=== PATIENT | female | born 1975 | race Caucasian/White ===

== ENCOUNTER 2021-12-27 18:37 | Emergency (ER) | payer MEDICAID ==
--- NOTE | 2021-12-27 20:17 | ED Physician Documentation ---
History of Present Illness - Stated complaint Stated Complaint: MED REFILL - Chief complaint Chief Complaint: General - History obtained from History obtained from: Patient, Family - History of Present Illness Timing: Today Pain level max: 0 Pain level now: 0 - Additonal information Additional information: 67-year-old female requesting refills of her medications. She is here with her . They recently moved here from [place], they state that their medications are stuck in a transport container in [place] and they are unable to obtain any refills. They are also having insurance issues. Requesting refill of her medications. 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 HEENT: Tonsil/Adenoidectomy - Present Medications Home Medications: Ambulatory Orders Medication Instructions Recorded Confirmed Adalimumab [Humira Pen] 40 mg SQ ONCE #1 kit 12/27/21 Buprenorphine HCl/Naloxone HCl 2 each SL DAILY 12/27/21 12/27/21 [Suboxone 8 mg-2 mg Sl Film] Carvedilol [Coreg] 25 mg PO BID #60 tab 12/27/21 Folic Acid 1 mg PO DAILY #30 tab 12/27/21 Gabapentin [Neurontin] 300 mg PO QPM #30 cap 12/27/21 Methylphenidate HCl 20 mg PO DAILY #30 tab 12/27/21 PARoxetine HCl [Paxil] 30 mg PO DAILY #30 tab 12/27/21 Potassium Chloride [Klor-Con 10] 10 meq PO DAILY #30 tab 12/27/21 buPROPion HCL [Bupropion HCl] 75 mg PO TID #90 tab 12/27/21 clonazePAM [Klonopin] 1 mg PO DAILY PRN #14 tab 12/27/21 predniSONE [Deltasone] 1 tablet PO BID #60 tab 12/27/21 - Allergies Allergies/Adverse Reactions: Allergies Allergy/AdvReac Type Severity Reaction Status Date / Time No Known Drug Allergies Allergy Verified 12/27/21 18:53 - Social History Does the pt smoke?: No Smoking Status: Never smoker Does the pt drink ETOH?: Yes - Immunizations Immunizations are current?: Yes PD ED PE NORMAL - Vitals Vital signs reviewed: Yes - General General: Alert and oriented X 3, No acute distress - HEENT HEENT: Moist mucous membranes - Neck Neck: Supple, no meningeal sign - Cardiac Cardiac: RRR - Respiratory Respiratory: No respiratory distress, Clear bilaterally - Abdomen Abdomen: Soft, Non tender, Non distended - Derm Derm: Warm and dry - Neuro Neuro: Alert and oriented X 3 - Psych Psych: Normal mood, Normal affect Results - Vitals Vitals: Vital Signs - 24 hr 12/27/21 12/27/21 19:00 20:53 Temperature 37.2 C 37.1 C Heart Rate 98 89 Respiratory 18 18 Rate Blood Pressure 133/97 H 135/88 H O2 Saturation 97 98 Oxygen O2 Source Room air PD MEDICAL DECISION MAKING - ED course Complexity details: considered differential, d/w patient ED course: 46-year-old female requesting medication refills. She did bring all of her bottles with her. Medications were verified. Will prescribe a 1 time 30-day refill of her medications. Informed her that we are unable to refill her Suboxone. She will be referred to a Suboxone clinic for this. The patient was informed that we will not be able to refill these medications again. She will follow up with a local primary care provider. She was given information about the primary care provider covering ED follow-ups this week. Patient counseled regarding signs and symptoms for which I believe and urgent re-evaluation would be necessary. Patient with good understanding of and agreement to plan and is comfortable going home at this time This document was made in part using voice recognition software. While efforts are made to proofread this document, sound alike and grammatical errors may occur. Departure - Departure Disposition: 01 Home, Self Care Clinical Impression: Encounter for medical screening examination Condition: Good Instructions: ED Screening Exam Medical Nonurgent Follow-Up: Terrie Gipson PA-C [Physician No Access] - [facility] [Provider Group] Prescriptions: buPROPion HCL [Bupropion HCl] 75 mg PO TID #90 tab Carvedilol [Coreg] 25 mg PO BID #60 tab predniSONE [Deltasone] 1 tablet PO BID #60 tab Folic Acid 1 mg PO DAILY #30 tab Adalimumab [Humira Pen] 40 mg SQ ONCE #1 kit clonazePAM [Klonopin] 1 mg PO DAILY PRN #14 tab PRN Reason: Anxiety Potassium Chloride [Klor-Con 10] 10 meq PO DAILY #30 tab Methylphenidate HCl 20 mg PO DAILY #30 tab Gabapentin [Neurontin] 300 mg PO QPM #30 cap PARoxetine HCl [Paxil] 30 mg PO DAILY #30 tab Comments: As discussed, we are unable to refill your Suboxone. This will need to come from a different provider. [facility] is a local resource. Their number is below. I would contact them tomorrow to see when they can have you follow-up. You can also try to follow-up with [facility], they are next to [facility] in [place]. Your prescriptions were sent to [facility] in [place]. [facility] Address: [id number] [place] [address] [address], [place] [address] Phone: Discharge Date/Time: 12/27/21 20:53
[2021-12-27 20:54] VITALS: BP 135/88
== END 2021-12-27 20:53 | disposition home or self-care (01) ==
LOC: ED 18:37
DX: Z76.0 Encounter for issue of repeat prescription (principal)
CPT/HCPCS: 99283; 99285

== ENCOUNTER 2022-03-06 13:38 | Emergency (ER) | payer MEDICAID ==
[2022-03-06] MEDS ORDERED: THIAMINE INJ 100 MG, MAGNESIUM SULFATE 2 GM, MULTIVITAMIN 10 ML, FOLIC ACID INJ 1 MG in... IV ONE ×5 (14:37)
[2022-03-06] MEDS ORDERED: LORazepam 2 MG/ML VIAL IVP STA (14:37)
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
[2022-03-06 14:53] LABS: BASOPHILS % (AUTO) 0.5 %; EOSINOPHILS # (AUTO) 0.1 10^3/uL (0.0-0.7); EOSINOPHILS % (AUTO) 1.6 %; HCT - HEMATOCRIT 42.6 % (37.0-47.0); HGB - HEMOGLOBIN 14.2 g/dL (12.0-16.0); LYMPHOCYTES # (AUTO) 1.6 10^3/uL (1.5-3.5); LYMPHOCYTES % (AUTO) 28.4 %; MEAN CORPUSCULAR HEMOGLOBIN 31.3 pg (27.0-31.0); MEAN CORPUSCULAR HGB CONC 33.3 g/dL (32.0-36.0); MEAN PLATELET VOLUME 10.5 fL (7.9-10.8); MONOCYTES # (AUTO) 0.4 10^3/uL (0.0-1.0); MONOCYTES % (AUTO) 7.3 %; NEUTROPHILS # (AUTO) 3.5 10^3/uL (1.5-6.6); PLT - PLATELET COUNT 312 10^3/uL (130-450); RED BLOOD COUNT 4.53 10^6/uL (4.20-5.40); RED CELL DISTRIBUTION WIDTH 11.8 % (12.0-15.0); WHITE BLOOD COUNT 5.6 x10^3/uL (4.8-10.8)
[2022-03-06 15:04] LABS: ALBUMIN 4.9 g/dL (3.2-5.5); ALBUMIN/GLOBULIN RATIO 1.3 (1.0-2.2); BILIRUBIN,TOTAL 0.8 mg/dL (0.2-1.0); CALCIUM 10.4 mg/dL (8.5-10.3); CREATININE 0.7 mg/dL (0.4-1.0); ETOH - ETHANOL 27.5 mg/dL; POTASSIUM 3.4 mmol/L (3.5-5.0); TOTAL PROTEIN 8.8 g/dL (6.7-8.2)
[2022-03-06] MEDS ORDERED: THIAMINE 100 MG TABLET PO STA (16:20)
[2022-03-06 16:29] LABS: MUDS CUTOFF CONCENTRATIONS CUTOFF CONC BELOW:
[2022-03-06 16:36] LABS: BILIRUBIN,URINE NEGATIVE (NEGATIVE); GLUCOSE, URINE (UA) NEGATIVE (NEGATIVE); KETONES,URINE (UA) NEGATIVE (NEGATIVE); LEUKOCYTE ESTERASE, URINE NEGATIVE (NEGATIVE); NITRITE,URINE NEGATIVE (NEGATIVE); OCCULT BLOOD,URINE TRACE-INTA (NEGATIVE); PROTEIN,URINE 100 mg/dL (NEGATIVE); UROBILINOGEN,URINE 0.2 (NORMAL) E.U./dL (NORMAL)
[2022-03-06 16:40] LABS: CLARITY,URINE CLEAR (CLEAR)
[2022-03-06 16:49] LABS: AMPHETAMINE SCREEN,URINE NEGATIVE (NEGATIVE); BARBITURATE SCREEN,UR NEGATIVE (NEGATIVE); BENZODIAZEPINES SCREEN, URINE NEGATIVE (NEGATIVE); COCAINE SCREEN URINE NEGATIVE (NEGATIVE); METHADONE SCREEN, URINE NEGATIVE (NEGATIVE); METHAMPHETAMINES SCREEN, URINE NEGATIVE (NEGATIVE); OPIATE SCREEN, URINE NEGATIVE (NEGATIVE); OXYCODONE SCREEN, URINE NEGATIVE (NEGATIVE); PROPOXYPHENE SCREEN, URINE NEGATIVE (NEGATIVE); THC CANNABINOID SCREEN, URINE NEGATIVE (NEGATIVE); TRICYCLIC ANTIDEPRESSANT,URINE NEGATIVE (NEGATIVE)
[2022-03-06 16:51] VITALS: BP 233/167
[2022-03-06 17:13] LABS: BACTERIA,URINE Few /HPF (None Seen); RBC,URINE 0-5 /HPF (0-5); SQUAMOUS EPITHELIAL CELL,UR RARE Squamous (<= Few); WBC,URINE 0-3 /HPF (0-5)
== END 2022-03-06 16:49 | disposition home or self-care (01) ==
LOC: ED 13:38
DX: F10.239 Alcohol dependence with withdrawal, unspecified (principal)
CPT/HCPCS: 36415; 80053; 80306; 80320; 81001; 83690; 84443; 85025; 93005; 96374; 99283; 99284; A9270; J2060; J3411; 81003; 87086

== ENCOUNTER 2022-06-28 20:05 | Outpatient (CLI) | payer MEDICAID | END 2022-06-28 20:06 | disposition left against medical advice (07) | LOC: EMS 20:05 | DX: R53.83 Other fatigue (principal) ==

== ENCOUNTER 2022-07-16 20:47 | Outpatient (CLI) | payer MEDICAID | END 2022-07-16 20:48 | disposition critical access hospital (66) | LOC: EMS 20:47 | DX: R41.82 Altered mental status, unspecified (principal); S50.312A Abrasion of left elbow, initial encounter; R26.81 Unsteadiness on feet; R45.1 Restlessness and agitation; W18.30XA Fall on same level, unspecified, initial encounter; Y93.01 Activity, walking, marching and hiking; Y92.414 Local residential or business street as the place of occurrence of the external cause | CPT/HCPCS: A0425; A0429; A0999 ==

== ENCOUNTER 2022-07-16 20:57 | Inpatient (IN) | payer MEDICAID ==
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
[2022-07-16] MEDS ORDERED: LORazepam 2 MG/ML VIAL IVP STA ×3 (21:09→22:59)
[2022-07-16 21:25] LABS: BASOPHILS % (AUTO) 0.6 %; EOSINOPHILS # (AUTO) 0.1 10^3/uL (0.0-0.7); EOSINOPHILS % (AUTO) 1.2 %; HGB - HEMOGLOBIN 12.4 g/dL (12.0-16.0); LYMPHOCYTES # (AUTO) 1.9 10^3/uL (1.5-3.5); LYMPHOCYTES % (AUTO) 28.7 %; MEAN CORPUSCULAR HEMOGLOBIN 28.2 pg (27.0-31.0); MEAN CORPUSCULAR HGB CONC 31.8 g/dL (32.0-36.0); MEAN CORPUSCULAR VOLUME 88.6 fL (81.0-99.0); MEAN PLATELET VOLUME 10.8 fL (7.9-10.8); MONOCYTES # (AUTO) 0.5 10^3/uL (0.0-1.0); MONOCYTES % (AUTO) 7.2 %; NEUTROPHILS # (AUTO) 4.1 10^3/uL (1.5-6.6); PLT - PLATELET COUNT 336 10^3/uL (130-450); RED CELL DISTRIBUTION WIDTH 12.9 % (12.0-15.0); WHITE BLOOD COUNT 6.5 x10^3/uL (4.8-10.8)
[2022-07-16 21:29] LABS: MUDS CUTOFF CONCENTRATIONS CUTOFF CONC BELOW:
[2022-07-16] MEDS ORDERED: OLANZapine 10 MG VIAL IM STA (21:30)
[2022-07-16 21:33] LABS: BILIRUBIN,URINE NEGATIVE (NEGATIVE); GLUCOSE, URINE (UA) NEGATIVE (NEGATIVE); KETONES,URINE (UA) NEGATIVE (NEGATIVE); LEUKOCYTE ESTERASE, URINE NEGATIVE (NEGATIVE); NITRITE,URINE NEGATIVE (NEGATIVE); OCCULT BLOOD,URINE NEGATIVE (NEGATIVE); PH,URINE 6.5 PH (5.0-7.5); PROTEIN,URINE NEGATIVE (NEGATIVE); UROBILINOGEN,URINE 0.2 (NORMAL) E.U./dL (NORMAL)
[2022-07-16 21:34] LABS: CLARITY,URINE CLEAR (CLEAR); HCG UR QUAL NEGATIVE
[2022-07-16 21:43] LABS: ACETAMINOPHEN < 10 ug/mL (10-30); ALBUMIN 4.3 g/dL (3.2-5.5); ALBUMIN/GLOBULIN RATIO 1.3 (1.0-2.2); ALKALINE PHOSPHATASE 54 IU/L (42-121); ALT ALANINE AMINOTRANSFERASE 12 IU/L (10-60); AST ASPARTATE AMINOTRANSFERASE 20 IU/L (10-42); BILIRUBIN,TOTAL 0.4 mg/dL (0.2-1.0); BUN - BLOOD UREA NITROGEN 10 mg/dL (6-20); CALCIUM 10.6 mg/dL (8.5-10.3); CARBON DIOXIDE - CO2 27 mmol/L (21-32); CHLORIDE 102 mmol/L (101-111); CREATININE 0.9 mg/dL (0.4-1.0); ETOH - ETHANOL < 5.0 mg/dL; GFR - MDRD 67 (>89); GLUCOSE 79 mg/dL (70-100); LIPASE 32 U/L (22-51); POTASSIUM 3.5 mmol/L (3.5-5.0); SALICYLATE < 6.0 mg/dL; SODIUM 143 mmol/L (135-145); TOTAL PROTEIN 7.6 g/dL (6.7-8.2)
[2022-07-16 21:43] LABS: AMPHETAMINE SCREEN,URINE POSITIVE (NEGATIVE); BARBITURATE SCREEN,UR NEGATIVE (NEGATIVE); BENZODIAZEPINES SCREEN, URINE NEGATIVE (NEGATIVE); COCAINE SCREEN URINE NEGATIVE (NEGATIVE); METHADONE SCREEN, URINE NEGATIVE (NEGATIVE); METHAMPHETAMINES SCREEN, URINE POSITIVE (NEGATIVE); OPIATE SCREEN, URINE POSITIVE (NEGATIVE); OXYCODONE SCREEN, URINE NEGATIVE (NEGATIVE); PROPOXYPHENE SCREEN, URINE NEGATIVE (NEGATIVE); THC CANNABINOID SCREEN, URINE NEGATIVE (NEGATIVE); TRICYCLIC ANTIDEPRESSANT,URINE NEGATIVE (NEGATIVE)
[2022-07-16] MEDS ORDERED: SODIUM CHLORIDE 0.9% 1,000 ML IV STA (22:20)
[2022-07-16] MEDS ORDERED: THIAMINE INJ 100 MG, MAGNESIUM SULFATE 2 GM, MULTIVITAMIN 10 ML, FOLIC ACID INJ 1 MG in... IV ONE ×10 (23:20)
--- NOTE | 2022-07-16 23:32 | CT Report ---
PROCEDURE: HEAD WO INDICATIONS: reported fall, AMS TECHNIQUE: Noncontrast 4.5 mm thick angled axial sections acquired from the foramen magnum to the vertex. For r adiation dose reduction, the following was used: automated exposure control, adjustment of mA and/or kV according to patient size. COMPARISON: None. FINDINGS: Image quality: Evaluation limited by motion artifact. Metallic streak artifact is also present from patient's dental hardware CSF spaces: Basal cisterns are patent. No extra-axial fluid collections. Ventricles are normal in size and shape. Brain: No intracranial hemorrhage, mass, or mass effect. [place]-white matter interface appears grossl y preserved with evaluation limited by motion artifact. Skull and face: Calvarium and visualized facial bones are intact, without suspicious lesions. Sinuses: Visualized sinuses and mastoids are clear. IMPRESSION: 1. Limited study demonstrates no definite acute intracranial abnormality. Reviewed by: Enrique Herrmann MD on 07/16/2022 11:31 PM PDT Approved by: Enrique Herrmann MD on 07/16/2022 11:31 PM PDT Station ID: [id number]
[2022-07-16] MEDS ORDERED: THIAMINE 100 MG/1 ML 2 ML MDV ONE (23:36)
[2022-07-16] MEDS ORDERED: MAGNESIUM SULFATE 1 GM/2 ML VIAL ONE (23:36)
[2022-07-16] MEDS ORDERED: FOLIC ACID 5 MG/1 ML 10ML MDV ONE (23:36)
[2022-07-16] MEDS ORDERED: MULTIVITAMIN IV 10 ML VIAL ONE (23:36)
--- NOTE | 2022-07-16 23:43 | CT Report ---
PROCEDURE: CERVICAL SPINE WO INDICATIONS: reported fall, AMS TECHNIQUE: Noncontrast 3 mm thick sections acquired from the skull base to the T4 level. Sagittal and coronal r eformats were then constructed. For radiation dose reduction, the following was used: automated exp osure control, adjustment of mA and/or kV according to patient size. COMPARISON: None. FINDINGS: Image quality: There is motion artifact limiting evaluation. Bones: No definite fractures or subluxation. There is mild anterolisthesis at C2-C3. Mild straighten ing of the cervical lordosis present. Multilevel degenerative disc disease and facet joint arthropath y are present. Visualized superior ribs are intact. Soft tissues: Prevertebral soft tissues are normal in thickness. No paravertebral hematomas. No ap ical pneumothoraces. IMPRESSION: 1. Limited study demonstrates no definite fracture or subluxation. Reviewed by: Enrique Denis MD on 07/16/2022 11:42 PM PDT Approved by: Enrique Denis MD on 07/16/2022 11:42 PM PDT Station ID: [id number]
[2022-07-17 02:29] LABS: B. PARAPERTUSSIS- RESP PCR PAN NOT DETECTED; B. PERTUSSIS- RESP PCR PANEL NOT DETECTED; C. PNEUMONIAE- RESP PCR PANEL NOT DETECTED; CORONAVIRUS 229E-RESP PCR NOT DETECTED; CORONAVIRUS HKU1-RESP PCR NOT DETECTED; CORONAVIRUS NL63-RESP PCR NOT DETECTED; CORONAVIRUS OC43-RESP PCR NOT DETECTED; HUMAN METAPNEUMOVIRUS NOT DETECTED; INFLUENZA A- RESP PCR PANEL NOT DETECTED; INFLUENZA B - RESP PCR PANEL NOT DETECTED; M. PNEUMONIAE- RESP PCR PANEL NOT DETECTED; PARAINFLUENZA VIRUS 1 NOT DETECTED; PARAINFLUENZA VIRUS 2 NOT DETECTED; PARAINFLUENZA VIRUS 3 NOT DETECTED; PARAINFLUENZA VIRUS 4 NOT DETECTED; RHINOVIRUS/ENTEROVIRUS NOT DETECTED; RSV- RESP PCR PANEL NOT DETECTED; SARS-CoV-2 -RESP PCR PANEL NOT DETECTED
[2022-07-17] MEDS ORDERED: ONDANSETRON 4 MG/2 ML VIAL IVP PRN (02:33)
--- NOTE | 2022-07-17 02:48 | HISTORY & PHYSICAL EXAMINATION ---
Chief Complaint - Chief Complaint Chief Complaint: altered mental status History of Present Illness - Admitted From Admitted From:: ER - History Obtained From Records Reviewed: ER physician - History of Present Illness HPI Comment/Other: This is 46-year-old female who was brought to the emergency room by EMS with altered mental status. Patient was found confused and had a fall. She was sitting in the car for a long time and bystander reported patient's abnormal behavior and fall and therefore EMS was called. Patient is not able to provide any history. She has tremors. She received IV Ativan as well as Zyprexa in the emergency room. Patient also received banana bag. Her labs are unremarkable. Urine analysis did not show any signs of UTI. Urine drug screen was positive for opioids and amphetamines. CT head and cervical spine did not show any acute abnormalities as well. Most of the history was obtained from the emergency room physician and patient is not able to provide any history. 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 HEENT: reports: Tonsil/Adenoidectomy - Family & Social History Family History Comment/Other: Not able to obtain due to altered mental status Social History Notes: Not able to obtain due to altered mental status - Substance History Dependence Issues: Other - POLST Patient has POLST: No Meds/Allgy - Home Medications Home Medications: Ambulatory Orders Medication Instructions Recorded Confirmed Adalimumab [Humira Pen] 40 mg SQ ONCE #1 kit 12/27/21 07/16/22 Folic Acid 1 mg PO DAILY #30 tab 12/27/21 07/16/22 buPROPion HCL [Bupropion HCl] 75 mg PO TID #90 tab 12/27/21 07/16/22 Lisinopril [Zestril] 20 mg PO DAILY 07/16/22 07/16/22 amLODIPine [Norvasc] 5 mg PO DAILY 07/16/22 07/16/22 buprenorphine HCL [Buprenorphine 07/16/22 HCl] - Allergies Allergies/Adverse Reactions: Allergies Allergy/AdvReac Type Severity Reaction Status Date / Time No Known Drug Allergies Allergy Verified 07/16/22 21:34 Review of Systems - Other Findings Other Findings: Not able to obtain due to altered mental status Prior Level of Functionality: unknown Exam - Vital Signs Reviewed Vital Signs: Yes Vital Signs: Vital Signs x48h Temp Pulse Resp BP Pulse Ox O2 Flow Rate 07/17/22 02:16 98 17 170/110 H 96 07/17/22 02:02 98 17 170/110 H 98 07/17/22 01:30 98 25 H 156/111 H 98 2 07/17/22 01:00 98 23 196/117 H 96 2 07/17/22 00:30 101 H 17 188/166 H 96 2 07/17/22 00:26 101 H 17 184/129 H 96 07/16/22 23:19 105 H 20 148/111 H 99 2 07/16/22 22:30 99 29 H 186/134 H 100 07/16/22 22:19 89 20 141/70 H 87 L 07/16/22 22:00 109 H 22 147/112 H 94 07/16/22 21:26 106 H 15 126/80 96 07/16/22 20:58 36.3 C L 105 H 20 159/95 H 97 - Physical Exam General Appearance: positive: Mild distress Eyes Bilateral: positive: PERRL ENT: positive: ENT inspection nml Neck: positive: Nml inspection Respiratory: positive: Breath sounds nml Cardiovascular: positive: Tachycardia Peripheral Pulses: positive: 1+ Abdomen: positive: Non-tender, No distention Back: positive: Nml inspection Skin: positive: Color nml Extremities: positive: Non-tender, No pedal edema Neurologic/Psychiatric: positive: Disoriented to person, Disoriented to place, Disoriented to time, Other (Shakiness and tremors present. She follows commands up to some extent. Moving all 4 limbs. Not able to communicate.) Reflexes: Knee (R): 1+, Knee (L): 1+ Conclusion/Plan - Lab Results Fish Bones: 07/16/22 21:19 07/16/22 21:19 - Diagnostic Imaging Results Diagnostic Imaging Results: positive: Prelim report reviewed - EKG Results EKG Interpreted Independently: No Core Measures - Anticipated LOS I expect patient to be DC'd or transferred within 96 hours.: Yes - Issues Hospital Issues and Management Plan: 1. Acute encephalopathy 2. Suspected substance use. Urine drug screen is positive for opioid and amphetamine 3. Accelerated hypertension Admit patient on telemetry Neurochecks Patient may be withdrawing from alcohol or other substance possibility. CIWA protocol Clonidine patch Fall aspiration precautions EKG chest x-ray CPK troponin ammonia level As needed IV hydralazine Seizure precautions - DVT/VTE - Prophylaxis VTE/DVT Device ordered at admit?: Yes VTE/DVT Prophylaxis med ordered at admit?: No - Stroke - Rehab Assessment Rehab services assessment to be ordered?: No - AMI - Statin at Admit Aspirin Prescribed on Admit: No Telemedicine Consult Details - Provider Location & Consult Time Telemedicine consultation conducted via videoconferencing?: Yes List names and roles of persons who participated in consult:: ED physician and hospitalist Telemedicine provider location:: [facility] [id number] Time Telemedicine consult began:: 02:00 Time Telemedicine consult completed:: 03:24
[2022-07-17] MEDS ORDERED: cloNIDine 0.2 MG PATCH TOP SCH (03:00)
[2022-07-17 03:01] LABS: CREATINE KINASE MB 2.7 ng/mL (0.6-6.3)
[2022-07-17 03:03] LABS: TROPONIN I HIGH SENSITIVITY 8.1 ng/L (2.3-14.8)
[2022-07-17 05:57] LABS: ABG BASE EXCESS 3.4 mmol/L (-2.0-3.0); ABG HCO3 30.8 mmol/L (22.0-26.0); ABG PH 7.33 (7.35-7.45); ABG PO2 56 mmHg (80-100); ABG TCO2 32.6 MMOL/L (21.0-29.0)
[2022-07-17 05:58] LABS: ALLEN TEST POSITIVE
[2022-07-17 05:59] LABS: ABG OXYGEN SATURATION 87 % (94-98); ABG PCO2 60 mmHg (34-45)
[2022-07-17 06:07] LABS: BASOPHILS % (AUTO) 0.3 %; HGB - HEMOGLOBIN 11.9 g/dL (12.0-16.0); LYMPHOCYTES # (AUTO) 1.4 10^3/uL (1.5-3.5); LYMPHOCYTES % (AUTO) 18.4 %; MEAN CORPUSCULAR HEMOGLOBIN 28.5 pg (27.0-31.0); MEAN CORPUSCULAR HGB CONC 30.5 g/dL (32.0-36.0); MEAN CORPUSCULAR VOLUME 93.5 fL (81.0-99.0); MEAN PLATELET VOLUME 10.4 fL (7.9-10.8); MONOCYTES # (AUTO) 0.7 10^3/uL (0.0-1.0); MONOCYTES % (AUTO) 9.9 %; NEUTROPHILS # (AUTO) 5.4 10^3/uL (1.5-6.6); NEUTROPHILS % (AUTO) 71.1 %; PLT - PLATELET COUNT 294 10^3/uL (130-450); RED BLOOD COUNT 4.17 10^6/uL (4.20-5.40); RED CELL DISTRIBUTION WIDTH 13.1 % (12.0-15.0); WHITE BLOOD COUNT 7.5 x10^3/uL (4.8-10.8)
[2022-07-17] MEDS ORDERED: NALOXONE 0.4 MG/ML VIAL ONE ×2 (06:14→07:36)
[2022-07-17] MEDS ORDERED: NALOXONE 0.4 MG/ML VIAL IVP ONE ×2 (06:16→07:24)
[2022-07-17 06:17] LABS: INR 0.9 (0.8-1.2); PT - PROTHROMBIN TIME 10.4 secs (9.9-12.6)
[2022-07-17 06:22] LABS: ALBUMIN 4.3 g/dL (3.2-5.5); ALBUMIN/GLOBULIN RATIO 1.3 (1.0-2.2); BILIRUBIN,TOTAL 0.7 mg/dL (0.2-1.0); CALCIUM 9.8 mg/dL (8.5-10.3); MAGNESIUM 2.5 mg/dL (1.7-2.8); POTASSIUM 3.1 mmol/L (3.5-5.0); TOTAL PROTEIN 7.6 g/dL (6.7-8.2)
--- NOTE | 2022-07-17 07:10 | XRAY Report ---
PROCEDURE: Chest 1 View X-Ray INDICATIONS: baseline TECHNIQUE: One view of the chest was acquired. COMPARISON: None. FINDINGS: Surgical changes and devices: None. Lungs and pleura: No pleural effusions or pneumothorax. Lungs are clear. Mediastinum: Mediastinal contours appear normal. Heart size is normal. Bones and chest wall: No suspicious bony lesions. Overlying soft tissues appear unremarkable. IMPRESSION: Chest without acute cardiopulmonary abnormalities or focal airspace disease. No significant discrepancy with initial interpretation by overnight radiologist. Reviewed by: Antonio Gaona MD on 07/17/2022 7:08 AM PDT Approved by: Antonio Gaona MD on 07/17/2022 7:08 AM PDT Station ID: [id number]
[2022-07-17] MEDS ORDERED: SODIUM CHLORIDE 0.9% 1,000 ML IV ONE (07:32)
[2022-07-17] MEDS: SODIUM CHLORIDE 0.45% 1,000 ML IV SCH ×2 (07:40→12:55)
[2022-07-17] MEDS ORDERED: SODIUM CHLORIDE 0.9% 500 ML IV ONE (07:49)
--- NOTE | 2022-07-17 08:06 | PROVIDER PROGRESS NOTE ---
Hospitalist Cross-cover Note - Cross-Cover Note Cross-Cover Note: At 0715 the RN called me in to evaluate the patient that was hypopneic and hypotensive. Patient in bed with HOB elevated, lethargic, opens her eyes to sternal rub then falls back asleep. Blood pressure 92/38, heart rate 80 in sinus rhythm Chart was reviewed. She fell after getting out of her car and witness called EMS. She just had an ABG done an hour ago showing respiratory acidosis pH 7.33, pCO2 60, Na is 146, other chemistries unremarkable including LFTs and ammonia level. Tox screen pos for Narcotics and Meth. Head and neck CT were neg. Dr. Mason Tavarez, ED provider, presented the case to me in person at 0715. The ED had not contacted Poison Control. Dr Molina's impression was that she has altered mental status probably from drugs, is a drug abuser, is a [employer]ism, but she has several different forms of identification with 2 different names, including 2 COVID vaccination cards with different names but the same vaccination types and same dates. 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 In the ER she was somnolent, hypertensive and required clonidine, she was also somewhat agitated and got Ativan and Zyprexa. At the time of admission her vital signs were stable, so she felt to be a candidate to admit to [facility] by admitting provider. Imp: Hypotension, suspect dehydration Respiratory acidosis from hypopnea Altered mental status, suspect narcotic overdose Hypernatremia, probably from dehydration Methamphetamine abuse History of hypertension and she was on clonidine in our ER temporarily Plan: Transfer pt to ICU Narcan drip IV saline bolus IV fluids with half NS We will also contact poison control for further recommendations Social work consult will be requested regarding substance abuse. At 0915, I checked on pt in ICU. She is on a Narcan drip and on iv fluids, BP 130/80, HR 90, RR 20. She opens her eyes to name or to touch and goes right back to sleep. Will order K riders for her K of 3.1 on a.m. labs. Ordering another ABG to be done in several hours. At 1130, her nares screen for MRSA came back positive. Isolation was started. Will order alcohol nasal wipes. At 1200 I contacted Poison Control of [facility] and spoke to KEITH Delcid. I reviewed the case and how the patient presented. I reviewed the medications list that was found in the patient's belongings which include: Albuterol, amlodipine, metoprolol, lisinopril, folic acid, prednisone, methotrexate, Humira and also Haloperidol 5 mg, Risperidone 1 mg, Sertraline 100 mg, and Buprenorphine 8-2 mg. Poison Control's impression is that she probably had a buprenorphine overdose which can cause respiratory depression and hypotension. The RN agreed that Narcan is appropriate and once she is off the Narcan drip to watch her for 4 to 6 hours in case symptoms return. The risperidone can give EKG changes. The sertraline has a risk of seizures within the 8 hours of last ingestion. She has passed 8 hours now. Her EKG was discussed, it shows a QTc of 516 ms. A repeat EKG was recommended to follow her QT interval to assure it is less prolonged. Recommendations are to keep magnesium over 2 and potassium over 4. These recommendations will be ordered. At 1300, I checked on the pt and she had had her CVP line inserted by Anesthesia and awaiting the CXR for placement result. At 1430 her EKG was done, which I interpreted. It showed : NSR, rate 87, early R/S transition, borderline prolonged QT interval with QTc 490 msec. At 1530 I re-examined pt in ICU. BP 170/100, HR 80, RR 20. She was on a Narcan drip, still only awoke with sternal rub, but now could say her name, then falls back asleep. At 1600 I called Poison Control and reviewed her status again with Farhana PARKER. Farhana said that the pt will likely need Narcan drip overnight, for probably a 12-24 hour infusion. I then called Pharmacy to tell them to pre-mix bags for overnight. Will order parenteral meds for treating HTN, using iv Hydralazine and resume Clonidine topical. At 1800, her labs came back showing good Mg of 2.0, but low K of 3.3 and low serum glu of 58. Will order more K riders. Will order D50 iv push and change iv hydration to D5 0.45NS w/ KCl. CRITICAL CARE TIME SPENT throughout the day combined: 60 min
[2022-07-17] MEDS: NALOXONE 2 MG in SODIUM CHLORIDE 0.9% 495 ML IV SCH ×6 (08:08→22:31)
[2022-07-17] MEDS: FAMOTIDINE 20 MG/2 ML VIAL IVP SCH ×2 (08:59→21:04)
[2022-07-17] MEDS: SODIUM CHLORIDE FLUSH 0.9% 10 ML SYRINGE IVP SCH ×2 (08:59→16:28)
--- NOTE | 2022-07-17 11:23 | PHARMACY PROGRESS NOTE ---
- Best Possible Medication History Admit Date and Time: 07/17/22 0227 Processed by: Nursing Medication History completed: Yes Patient Interview: Pt unable to participate Secondary Source(s): Written medication list, Insurance records Med list confirmed by nursing based on written list found on patient. Suboxone dosing updated per insurance records. As the person ultimately responsible for medication therapy, providers are able to order a medication from an existing home medication list in [facility] via the "Reconcile Routine" prior to Confirmation of that medication by computer support technician. Such practice is discouraged except when the physician, in their clinical judgment, deems that a medical need exists for a medication without regard to previous use.
[2022-07-17] MEDS: POTASSIUM CHLOR 10 MEQ/100 ML 10 MEQ/100 ML BAG IV SCH ×4 (11:38→15:28)
[2022-07-17 11:48] LABS: ABG PCO2 49 mmHg (34-45); ABG PH 7.41 (7.35-7.45)
[2022-07-17 11:49] LABS: ABG BASE EXCESS 4.7 mmol/L (-2.0-3.0); ABG HCO3 30.2 mmol/L (22.0-26.0); ABG OXYGEN SATURATION 98 % (94-98); ABG PO2 128 mmHg (80-100); ABG TCO2 31.7 MMOL/L (21.0-29.0); ALLEN TEST POSITIVE
[2022-07-17] MEDS: ethyl alcohoL 62% SWAB AMPULE NAS SCH (15:27)
--- NOTE | 2022-07-17 15:29 | XRAY Report ---
PROCEDURE: Chest for Line Placement INDICATIONS: Central line placement TECHNIQUE: One view of the chest was acquired. COMPARISON: Same-day chest radiograph FINDINGS: Left IJ central line has been placed with inferior tip projecting in the region of the upper SVC. Rem aining findings not significantly changed. No pneumothorax. IMPRESSION: Appropriate position of left IJ central catheter. Reviewed by: Dave Kerr MD on 07/17/2022 3:28 PM PDT Approved by: Dave Kerr MD on 07/17/2022 3:28 PM PDT Station ID: [id number]
--- NOTE | 2022-07-17 15:40 | ANESTHESIA PROCEDURE NOTE ---
Anesth Central Line Template - Central Line Central Line Preparation: Unable to obtain consent (attempted to call next of kin, Nadeem Bernard. Discussed urgency with Dr. Berman and it was urgent enough to forgo consent. Patient is unable to give consent due to altered mental status), Time out completed, Ultrasound used, Sterile prep and drape Central line location: Left IJ Central line type: Triple lumen Central line catheter tip site resides: Superior vena cava (SVC) Central line aftercare: Chlorhexidine disc placed, Secured (sutured in place), Placement confirmed, No pneumothorax, No complications, Pt tolerated well Other Info/Details: Patient's right neck was prepped with chlorohexadine. Full sterile drape, gloves, gown and mask utilized. Right IJ imaged using ultrasound and after l ocalized with 2ml of 1% lidocaine, needle was used to access vein. I was unable to advance wire. I attempted 3 times total and the wire met resistance each time at about 10cm. The left neck was then prepped with chlorohexadine and localized with 2ml of 1% lidocaine. The left IJ was accessed under ultrasound guidance and wire advanced with ease. After dilation, a triple lumen central line was inser gabe over the wire and advanced to 20cm. Wire removed. All ports aspirate and flush with ease. Sutured in place. Chest xray shows tip in the SVC.
[2022-07-17] MEDS ORDERED: hydrALAZINE INJ 20 MG/ML VIAL IVP ONE (16:08)
[2022-07-17] MEDS ORDERED: cloNIDine 0.1 MG PATCH TOP SCH (17:00)
[2022-07-17 17:49] LABS: POTASSIUM 3.3 mmol/L (3.5-5.0)
[2022-07-17] MEDS ORDERED: DEXTROSE 50% ABBOJECT 25 GM/50 ML SYRINGE IVP ONE (17:52)
[2022-07-17] MEDS: D5.45NS W/20 MEQ KCL 1,000 ML IV SCH (18:06)
[2022-07-17] MEDS: POTASSIUM CHLOR 20 MEQ/100 ML 20 MEQ/100 ML BAG IV SCH ×2 (18:07→19:44)
[2022-07-17] MEDS: SODIUM CHLORIDE FLUSH 0.9% 10 ML SYRINGE IVP PRN (20:52)
[2022-07-18] MEDS: POTASSIUM CHLOR 20 MEQ/100 ML 20 MEQ/100 ML BAG IV SCH ×6 (00:42→19:34)
[2022-07-18] MEDS: NALOXONE 2 MG in SODIUM CHLORIDE 0.9% 495 ML IV SCH ×4 (01:01→07:51)
[2022-07-18] MEDS: SODIUM CHLORIDE FLUSH 0.9% 10 ML SYRINGE IVP SCH ×4 (02:10→20:15)
[2022-07-18] MEDS: LORazepam 2 MG/ML VIAL IVP PRN ×2 (02:10→04:25)
[2022-07-18] MEDS: D5.45NS W/20 MEQ KCL 1,000 ML IV SCH ×3 (02:17→18:28)
[2022-07-18] MEDS: SODIUM CHLORIDE FLUSH 0.9% 10 ML SYRINGE IVP PRN ×3 (04:25→20:18)
[2022-07-18 05:53] LABS: BASOPHILS % (AUTO) 0.2 %; EOSINOPHILS % (AUTO) 0.2 %; HCT - HEMATOCRIT 33.4 % (37.0-47.0); HGB - HEMOGLOBIN 10.5 g/dL (12.0-16.0); LYMPHOCYTES # (AUTO) 1.4 10^3/uL (1.5-3.5); LYMPHOCYTES % (AUTO) 23.2 %; MEAN CORPUSCULAR HEMOGLOBIN 28.5 pg (27.0-31.0); MEAN CORPUSCULAR HGB CONC 31.4 g/dL (32.0-36.0); MEAN CORPUSCULAR VOLUME 90.8 fL (81.0-99.0); MEAN PLATELET VOLUME 10.9 fL (7.9-10.8); MONOCYTES # (AUTO) 0.4 10^3/uL (0.0-1.0); MONOCYTES % (AUTO) 7.5 %; NEUTROPHILS % (AUTO) 68.9 %; PLT - PLATELET COUNT 236 10^3/uL (130-450); RED BLOOD COUNT 3.68 10^6/uL (4.20-5.40); RED CELL DISTRIBUTION WIDTH 13.1 % (12.0-15.0); WHITE BLOOD COUNT 5.9 x10^3/uL (4.8-10.8)
[2022-07-18 06:04] LABS: CALCIUM 9.1 mg/dL (8.5-10.3); CREATININE 0.7 mg/dL (0.4-1.0); MAGNESIUM 1.6 mg/dL (1.7-2.8); PHOSPHORUS 2.3 mg/dL (2.5-4.6); POTASSIUM 3.1 mmol/L (3.5-5.0)
[2022-07-18] MEDS ORDERED: MAGNESIUM SULFATE 2 GRAM 2 GM/50 ML BAG IV ONE (07:00)
[2022-07-18] MEDS: FAMOTIDINE 20 MG/2 ML VIAL IVP SCH ×2 (07:49→20:14)
[2022-07-18] MEDS: ethyl alcohoL 62% SWAB AMPULE NAS SCH ×2 (07:49→20:14)
[2022-07-18] MEDS ORDERED: POTASSIUM PHOSPHATE 15 MMOL in SODIUM CHLORIDE 0.9% 250 ML IV ONE (09:00)
[2022-07-18] MEDS ORDERED: lisinopriL 20 MG TABLET PO SCH (11:00)
[2022-07-18] MEDS ORDERED: amLODIPine 5 MG TABLET PO SCH (11:00)
[2022-07-18] MEDS: ACETAMINOPHEN 500 MG TABLET PO PRN ×2 (12:26→19:38)
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
[2022-07-18 16:13] LABS: CALCIUM 9.3 mg/dL (8.5-10.3); MAGNESIUM 1.9 mg/dL (1.7-2.8)
[2022-07-19] MEDS: LORazepam 2 MG/ML VIAL IVP PRN ×2 (00:39→22:45)
[2022-07-19] MEDS: D5.45NS W/20 MEQ KCL 1,000 ML IV SCH (03:43)
[2022-07-19] MEDS: SODIUM CHLORIDE FLUSH 0.9% 10 ML SYRINGE IVP PRN ×3 (05:12→22:45)
[2022-07-19] MEDS ORDERED: SODIUM CHLORIDE FLUSH 0.9% 10 ML SYRINGE IVP PRN (05:12)
[2022-07-19 05:40] LABS: CALCIUM, IONIZED 1.33 mmol/L (1.15-1.33); VBG PH 7.309 (7.31-7.41)
[2022-07-19 05:49] LABS: MAGNESIUM 1.8 mg/dL (1.7-2.8); POTASSIUM 3.5 mmol/L (3.5-5.0)
[2022-07-19] MEDS: POTASSIUM CHLOR 20 MEQ/100 ML 20 MEQ/100 ML BAG IV SCH ×2 (06:39→08:03)
[2022-07-19] MEDS ORDERED: MAGNESIUM OXIDE 400 MG TABLET PO ONE (08:00)
[2022-07-19] MEDS: buPROPion XL 150 MG TABLET PO SCH (09:50)
[2022-07-19] MEDS: amLODIPine 5 MG TABLET PO SCH (09:50)
[2022-07-19] MEDS: ACETAMINOPHEN 500 MG TABLET PO PRN ×3 (09:51→22:45)
[2022-07-19] MEDS: ethyl alcohoL 62% SWAB AMPULE NAS SCH ×2 (09:51→21:05)
[2022-07-19] MEDS: lisinopriL 20 MG TABLET PO SCH (09:51)
[2022-07-19] MEDS: FAMOTIDINE 20 MG TABLET PO SCH ×2 (09:51→21:05)
[2022-07-19] MEDS: FOLIC ACID 1 MG TABLET PO SCH (09:51)
[2022-07-19] MEDS: polyethylene glycoL 3350 17 GM PACKET PO SCH (09:52)
[2022-07-19] MEDS: SODIUM CHLORIDE FLUSH 0.9% 10 ML SYRINGE IVP SCH ×2 (09:53→17:23)
[2022-07-19] MEDS: LIDOCAINE PATCH 5% TOP PRN (11:21)
--- NOTE | 2022-07-19 11:44 | PROVIDER PROGRESS NOTE ---
Subjective - Prog Note Date Prog Note Date: 07/19/22 Prog Note Time: 11:34 - Subjective Subjective: Sitting up in her chair. Holding her pillow to her left side and clamped down with her left arm because the rib cage hurts too much to have excursion, deep breath, or cough. She is asking for opioid pain relief. Other than that there is no new problems. She is worried about getting home to take care of her since she is his primary caregiver Current Medications - Current Medications Current Medications: Active Medications Acetaminophen (Acetaminophen 500 Mg Tablet) 500 mg PO Q4HR PRN PRN Reason: Pain or Fever > 38C (100.4F) Last Admin: 07/19/22 09:51 Dose: 500 mg Alcohol (Ethyl Alcohol 62% Swab Ampule) 1 amp STEFANI BID [facility] Last Admin: 07/19/22 09:51 Dose: 1 amp Amlodipine Besylate (Amlodipine 5 Mg Tablet) 5 mg PO DAILY [facility] Last Admin: 07/19/22 09:50 Dose: 5 mg Bupropion HCl (Bupropion Xl 150 Mg Tablet) 150 mg PO DAILY [facility] Last Admin: 07/19/22 09:50 Dose: 150 mg Clonidine HCl (Clonidine 0.1 Mg Patch) 1 patch TOP Q7D [facility] Last Admin: 07/17/22 16:31 Dose: 1 patch Famotidine (Famotidine 20 Mg Tablet) 20 mg PO BID [facility] Last Admin: 07/19/22 09:51 Dose: 20 mg Folic Acid (Folic Acid 1 Mg Tablet) 1 mg PO DAILY [facility] Last Admin: 07/19/22 09:51 Dose: 1 mg Lidocaine (Lidocaine Patch 5%) 1 patch TOP DAILY PRN PRN Reason: PAIN Last Admin: 07/19/22 11:21 Dose: 1 patch Lisinopril (Lisinopril 20 Mg Tablet) 20 mg PO DAILY [facility] Last Admin: 07/19/22 09:51 Dose: 20 mg Lorazepam (Lorazepam 2 Mg/Ml Vial) 1 mg IVP Q30M PRN; Protocol PRN Reason: CIWA >8 Last Admin: 07/19/22 00:39 Dose: 1 mg Ondansetron HCl (Ondansetron 4 Mg/2 Ml Vial) 4 mg IVP Q6HR PRN PRN Reason: Nausea / Vomiting Polyethylene Glycol (Polyethylene Glycol 3350 17 Gm Packet) 17 gm PO DAILY [facility] Last Admin: 07/19/22 09:52 Dose: 17 gm Multivit/Folic Acid/Iron ( Vitamin Tablet) 1 tab PO DAILYWM [facility] Sodium Chloride (Sodium Chloride Flush 0.9% 10 Ml Syringe) 10 ml IVP PRN PRN PRN Reason: NEEDED PER PROVIDER ORDERS Last Admin: 07/19/22 05:12 Dose: 20 ml Sodium Chloride (Sodium Chloride Flush 0.9% 10 Ml Syringe) 10 ml IVP 0100,0900,1700 [facility] Last Admin: 07/19/22 09:53 Dose: 30 ml Sodium Chloride (Sodium Chloride Flush 0.9% 10 Ml Syringe) 20 ml IVP PRN PRN PRN Reason: After Blood Draw Lisinopril [Zestril] 20 mg PO DAILY 07/16/22 amLODIPine [Norvasc] 5 mg PO DAILY 07/16/22 Buprenorphine HCl/Naloxone HCl [Suboxone 8-2 mg Tab] 2.5 tab SL DAILY 07/17/22 Objective - Vital Signs/Intake & Output Reviewed Vital Signs: Yes Vital Signs: Vital Signs x48h Temp Pulse Resp BP Pulse Ox 07/19/22 06:00 79 16 154/108 H 95 07/19/22 05:00 37.9 C 71 13 149/101 H 93 07/19/22 04:00 75 13 140/100 H 92 Intake & Output: Intake & Output 07/16/22 07/17/22 07/18/22 07/19/22 23:59 23:59 23:59 23:59 Intake Total 1000 5554.801 6583.333 2908.333 Output Total 0 7530 800 Balance 1000 5554.801 -664.045 2449.333 - Objective General Appearance: positive: Alert, Moderate distress (from rib cage pain and tearful, grunts at times) Eyes Bilateral: positive: PERRL, EOMI ENT: positive: Pharynx nml, No signs of dehydration Neck: positive: No JVD. negative: Stiff neck Respiratory: positive: No respiratory distress. negative: Wheezes, Rales, Rhonchi Cardiovascular: positive: Regular rate & rhythm Abdomen: positive: Non-tender, No organomegaly, Nml bowel sounds, No distention Skin: positive: Warm, Dry Extremities: positive: Full ROM, No pedal edema Neurologic/Psychiatric: positive: Oriented x3, CN's nml (2-12), Motor nml, Depressed mood/affect (Denies suicidal ideation, denies hallucinations.) - Lab Results Fish Bones: 07/18/22 05:17 07/19/22 05:05 Other Labs: Lab Results x24hrs 07/19/22 07/19/22 07/18/22 Range/Units 05:05 05:05 22:16 VBG pH 7.309 L (7.31-7.41) Ionized Calcium 1.33 (1.15-1.33) mmol/L Potassium 3.5 4.1 (3.5-5.0) mmol/L Calcium (8.5-10.3) mg/dL Phosphorus 3.0 (2.5-4.6) mg/dL Magnesium 1.8 (1.7-2.8) mg/dL 07/18/22 07/18/22 07/18/22 Range/Units 15:58 15:58 15:58 VBG pH (7.31-7.41) Ionized Calcium (1.15-1.33) mmol/L Potassium 3.5 (3.5-5.0) mmol/L Calcium 9.3 (8.5-10.3) mg/dL Phosphorus 3.3 (2.5-4.6) mg/dL Magnesium 1.9 (1.7-2.8) mg/dL Assessment/Plan - Problem List (1) Ribs, multiple fractures Impression: Minimally displaced left posterior lateral seventh through eighth through 10th rib fractures. Suggestion of pleural thickening. No pleural effusion or pneumothorax. Plan: I did contact [employer]. They are the rehab company she is working with. They wanted a medical records release which I can get but they were only able to confirm that she is their client. They were not able to confirm what type of contract they have with her. We will start her on oxycodone 5 mg p.o. every 4 hours as needed. Respiratory therapy is trying to work with her and trying to get her to do her incentive spirometry. So far she has been refusing that, refusing to cough. I will also add a Lidoderm patch. Take Narcan off the MAR (2) Central apnea resolved Impression: Due to opioid like substance overdose with her Suboxone. She was on a Narcan drip until 07/18 late morning. Her respiratory rate has been stable. She has had improving alertness. Yesterday she was still sluggish, tremulous and with delayed psychomotor response. This morning she is just miserable from the pain in the rib fractures. Tearful, alert. Plan: From a medical perspective, poison control said she is clear as long as her respiratory rate has stayed stable off Narcan. And it has. I have let social service worker know but they do not think there is much they can do for her. This was not an intentional drug overdose but an accidental drug overdose. Again I have contacted [facility] but without a medical records release they cannot answer any of my questions Transfer [facility]. Continue to encourage incentive spirometry, cough, and ambulate in the room. (3) Respiratory acidosis Resolved Impression: At 550 in the morning on July 17 her PCO2 was 60. Later on that day with nasal cannula she was 49. Although she was sedated 07/18, I do not think I needed to repeat her blood gas since her indirect evaluation of CO2 by her serum carbon dioxide is only 25. No anion gap. (4) Overdose of opiate or related narcotic/Methamphetamine abuse/Heroin abuse Impression: She relapsed and went back on heroin and methamphetamines. She then tried to correct that by taking Suboxone. She passed out in her car. And that is when ambulance was called. No intentional drug overdose, no suicidal ideation She was on a temporary Narcan drip. We followed instructions per poison control. She is anxious to go home because she is the primary caregiver for her . I explained that she may need more help than he does because of her rib fractures. Social work is trying to avail her of opportunities through out reach. She needs to establish a PCP. Needs to reestablish with [facility]. Qualifiers: Encounter type: initial encounter Injury intent: not intentional Qualified Code(s): T40.604A - Poisoning by unspecified narcotics, undetermined, initial encounter (5) Dehydration Impression: She has had brisk urine output both days. But fluid balance is starting to level off and be slightly positive. Oral mucosa much improved from yesterday which was quite dry. (6) Hypertension Impression: Her home med list shows Norvasc, lisinopril. I renewed those blood pressure pills on July 18 in the morning. By afternoon her blood pressure was low. It has rebounded with IV fluids. 154/108 this morning. I will keep her on the same doses Qualifiers: Hypertension type: primary hypertension Qualified Code(s): I10 - Essential (primary) hypertension (7) Electrolyte disturbance Impression: She has hypophosphatemia and hypomagnesemia. As well as hypokalemia. Nutrition services advises to make sure that we watch out for refeeding syndrome. All of these were being supplemented under ICU protocol. Today's phosphorus is 3, magnesium 1.8. He is being moved out of the ICU.
[2022-07-19] MEDS: PRENATAL VITAMIN TABLET PO SCH (17:23)
[2022-07-20] MEDS: SODIUM CHLORIDE FLUSH 0.9% 10 ML SYRINGE IVP SCH ×2 (00:45→08:57)
[2022-07-20 05:29] LABS: CALCIUM, IONIZED 1.28 mmol/L (1.15-1.33); VBG PH 7.337 (7.31-7.41)
[2022-07-20 05:44] LABS: MAGNESIUM 1.8 mg/dL (1.7-2.8); PHOSPHORUS 4.1 mg/dL (2.5-4.6); POTASSIUM 3.9 mmol/L (3.5-5.0)
[2022-07-20] MEDS: lisinopriL 20 MG TABLET PO SCH (07:41)
[2022-07-20] MEDS: amLODIPine 5 MG TABLET PO SCH (07:41)
[2022-07-20] MEDS: ACETAMINOPHEN 500 MG TABLET PO PRN ×2 (07:45→11:57)
[2022-07-20] MEDS ORDERED: KETOROLAC 30 MG/ML VIAL IVP PRN (07:56)
[2022-07-20 08:46] LABS: BASOPHILS % (AUTO) 0.4 %; EOSINOPHILS # (AUTO) 0.3 10^3/uL (0.0-0.7); EOSINOPHILS % (AUTO) 5.5 %; HCT - HEMATOCRIT 34.1 % (37.0-47.0); HGB - HEMOGLOBIN 10.7 g/dL (12.0-16.0); LYMPHOCYTES % (AUTO) 36.3 %; MEAN CORPUSCULAR HEMOGLOBIN 28.8 pg (27.0-31.0); MEAN CORPUSCULAR HGB CONC 31.4 g/dL (32.0-36.0); MEAN CORPUSCULAR VOLUME 91.9 fL (81.0-99.0); MEAN PLATELET VOLUME 11.1 fL (7.9-10.8); MONOCYTES # (AUTO) 0.4 10^3/uL (0.0-1.0); MONOCYTES % (AUTO) 7.4 %; NEUTROPHILS # (AUTO) 2.7 10^3/uL (1.5-6.6); PLT - PLATELET COUNT 259 10^3/uL (130-450); RED BLOOD COUNT 3.71 10^6/uL (4.20-5.40); RED CELL DISTRIBUTION WIDTH 12.8 % (12.0-15.0); WHITE BLOOD COUNT 5.4 x10^3/uL (4.8-10.8)
[2022-07-20] MEDS: oxyCODONE 5 MG TABLET PO PRN ×2 (08:52→13:11)
[2022-07-20] MEDS: FAMOTIDINE 20 MG TABLET PO SCH (08:55)
[2022-07-20] MEDS: PRENATAL VITAMIN TABLET PO SCH (08:55)
[2022-07-20] MEDS: buPROPion XL 150 MG TABLET PO SCH (08:55)
[2022-07-20] MEDS: FOLIC ACID 1 MG TABLET PO SCH (08:55)
[2022-07-20] MEDS: ethyl alcohoL 62% SWAB AMPULE NAS SCH (08:56)
[2022-07-20 08:57] LABS: ALBUMIN 3.3 g/dL (3.2-5.5); ALBUMIN/GLOBULIN RATIO 1.1 (1.0-2.2); BILIRUBIN,TOTAL 0.3 mg/dL (0.2-1.0); CALCIUM 9.8 mg/dL (8.5-10.3); CREATININE 0.7 mg/dL (0.4-1.0); POTASSIUM 3.9 mmol/L (3.5-5.0); TOTAL PROTEIN 6.3 g/dL (6.7-8.2)
[2022-07-20] MEDS: polyethylene glycoL 3350 17 GM PACKET PO SCH (10:04)
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
--- NOTE | 2022-07-20 13:51 | DISCHARGE SUMMARY ---
Discharge Summary Admit Date: 07/17/22 Discharge Date: 07/20/22 Discharging Provider: Marilynn Renee MD Primary Care Provider: no provider Code Status: Attempt Resuscitation Condition at Discharge: Stable Discharge Disposition: 01 Home, Self Care - DIAGNOSES Discharge Diagnoses with Status of Each Condition: 1. Altered mental status with overdose of opiate related narcotic 2. Methamphetamine abuse 3. Heroin abuse 4. Central apnea 5. Dehydration 6. Hypertension 7. Multiple rib fractures 8. Electrolyte disturbance 9. Respiratory acidosis - HPI History of Present Illness: This is 46-year-old female who was brought to the emergency room by EMS with altered mental status. Patient was found confused and had a fall. She was sitting in the car for a long time and bystander reported patient's abnormal behavior and fall and therefore EMS was called. Patient is not able to provide any history. She has tremors. She received IV Ativan as well as Zyprexa in the emergency room. Patient also received banana bag. Her labs are unremarkable. Urine analysis did not show any signs of UTI. Urine drug screen was positive for opioids and amphetamines. CT head and cervical spine did not show any acute abnormalities as well. Most of the history was obtained from the emergency room physician and patient is not able to provide any history. 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 Head CT is limited because of movement but no acute intracranial abnormality 2. Cervical spine CT also with movement, but no definite fracture or subluxation 3. Chest x-ray without acute cardiopulmonary abnormalities or focal airspace disease. 4. Rib x-rays with minimally displaced fractures involving the left lateral eighth through 10th ribs. No right rib fracture identified. - HOSPITAL COURSE Hospital Course: The patient was initially admitted as an agitated patient who was positive for methamphetamines, amphetamines and opioids. She was not coherent enough to tell us if she had taken anything and the only thing she has on her med list is Sub oxone. After a few hours, the patient was found hypotensive, less responsive and given Narcan and had good response with that. ABG showed a respiratory acidosis. As such she was transferred to ICU with a Narcan drip. She gradually became more awake, was able to be taken off the Narcan drip. When she was awake she was complaining of rib cage pain. She says that the police allegedly "hassled her and threw her on the ground". But I did point out that there was no police noted in the EMS report. That she had fallen herself getting out of a car. Rib films did show rib fractures. As the patient became increasingly more alert she also became increasingly more tearful. Her left rib cage hurt. Her to take of breath, her to move. As such have given her Toradol, oxycodone with some relief of pain. Blood pressure became increasingly hypertensive. When she was initially in the ICU and unresponsive on a Narcan drip she was started on a clonidine patch Because she cannot do p.o. When she became more awake her home meds of lisinopril and amlodipine were renewed. In spite of that she still has occasional episodes of high blood pressure and on the day of discharge, in the piercer operator, blood pressure was 171/102. Calcium, magnesium, phosphorus and potassium abnormalities were treated with supplementation when needed. She is now stable for discharge. Social work is working with her to see if there are any options to help her at home since she is considered the primary caregiver for her . I am not aware of what his disability is but they will now both need help. At discharge temperature is 37. Heart rate 86. Blood pressure 139/90. Respirations 17. 99% on room air. She is 5 foot 4 inches tall, 54 kg. Tearful alert white female who looks older than stated age. Shotty neck nodes. But supple. Lungs are clear to auscultation and percussion. She is not wanting to take a deep breath because of the left rib cage but she has been taught by respiratory therapy how to use Acapella and incentive spirometry. She has a regular rate and rhythm. And abdomen that is soft, nontender, normal bowel sounds. Extremities without any edema. She is able to get up out of bed from a sit to stand. Walks to the bathroom to do toileting without assistance. Is able to stand at the sink to wash her hands, pressure hair, brush her teeth.But she is tearful with this and says that her left rib cage really hurts when she moves. Greater than 30 minutes was spent coordinating discharge. I have asked her to please follow-up with her primary care provider. She does not have 1 to please establish yourself with 1. I have discharged her with 5 days of oxycodone 5 mg to be paired with Tylenol every 6 hours as needed. A Lidoderm patch was ordered. I have asked her to please take a multivitamin to help with folic acid and thiamine. I have also asked her to follow-up with [facility] for her substance abuse. - ALLERGIES Allergies/Adverse Reactions: Allergies Allergy/AdvReac Type Severity Reaction Status Date / Time No Known Drug Allergies Allergy Verified 07/16/22 21:34 - MEDICATIONS Home Medications: Ambulatory Orders Medication Instructions Recorded Confirmed Adalimumab [Humira Pen] 40 mg SQ ONCE #1 kit 12/27/21 07/16/22 Folic Acid 1 mg PO DAILY #30 tab 12/27/21 07/16/22 buPROPion HCL [Bupropion HCl] 75 mg PO TID #90 tab 12/27/21 07/16/22 Lisinopril [Zestril] 20 mg PO DAILY 07/16/22 07/16/22 amLODIPine [Norvasc] 5 mg PO DAILY 07/16/22 07/16/22 Buprenorphine HCl/Naloxone HCl 2.5 tab SL DAILY 07/17/22 07/17/22 [Suboxone 8-2 mg Tab] Acetaminophen [Tylenol] 500 mg PO Q4HR PRN tab 07/20/22 Lidocaine Patch 5% [Lidoderm Patch] 1 patch TOP DAILY PRN #10 patch 07/20/22 Pnv No.121/Iron/Folic Acid 1 each PO DAILY #30 tablet 07/20/22 [ Multivitamin Tablet] oxyCODONE [Roxicodone] 5 mg PO Q4HR PRN #30 tab 07/20/22 - LABS Result Diagrams: 07/20/22 05:19 07/20/22 05:19
[2022-07-20] MEDS: LIDOCAINE PATCH 5% TOP PRN (13:57)
[2022-07-20 14:10] VITALS: BP 139/90
== END 2022-07-20 15:45 | disposition home or self-care (01) | DRG 918 ==
LOC: EDBD → EDUNIT# → ED 20:57 → MS2 07-17 02:27 → ICU 07-17 07:59 → MS2 07-19 11:41
PROVIDERS: ADMIT Internal Medicine; ATTEND Specialist
PROC: 02HV33Z Insertion of Infusion Device into Superior Vena Cava, Percutaneous Approach (ICD-10-PCS; principal; 2022-07-17)
DX: T40.491A Poisoning by other synthetic narcotics, accidental (unintentional), initial encounter (principal); S22.42XA Multiple fractures of ribs, left side, initial encounter for closed fracture; E87.29 Other acidosis; G93.40 Encephalopathy, unspecified; E87.0 Hyperosmolality and hypernatremia; R41.82 Altered mental status, unspecified; F11.10 Opioid abuse, uncomplicated; F15.10 Other stimulant abuse, uncomplicated; G47.37 Central sleep apnea in conditions classified elsewhere; E86.0 Dehydration; W18.30XA Fall on same level, unspecified, initial encounter; Y92.481 Parking lot as the place of occurrence of the external cause; I10 Essential (primary) hypertension; R25.1 Tremor, unspecified; F32.A Depression, unspecified; F41.9 Anxiety disorder, unspecified; L40.9 Psoriasis, unspecified; A49.02 Methicillin resistant Staphylococcus aureus infection, unspecified site; I95.9 Hypotension, unspecified; R09.02 Hypoxemia; Z20.822 Contact with and (suspected) exposure to COVID-19; E83.39 Other disorders of phosphorus metabolism; E83.42 Hypomagnesemia
CPT/HCPCS: 36415; 36600; 51701; 70450; 71045; 71110; 72125; 80048; 80053; 80306; 80307; 80320; 80329; 81003; 81025; 82140; 82310; 82330; 82550; 82553; 82803; 83605; 83690; 83735; 84100; 84132; 84443; 84484; 85025; 85610; 87150; 87633; 93005; 93306; 96361; 96365; 96372; 96375; 96376; 99285; A9270; J2060; J3411; 81001; 87086

== ENCOUNTER 2022-07-30 16:04 | Outpatient (CLI) | payer MEDICAID | END 2022-07-30 16:05 | disposition critical access hospital (66) | LOC: EMS 16:04 | DX: R56.9 Unspecified convulsions (principal) | CPT/HCPCS: A0425; A0429; A0999 ==

== ENCOUNTER 2022-07-30 16:19 | Emergency (ER) | payer MEDICAID ==
--- NOTE | 2022-07-30 16:33 | ED Physician Documentation ---
History of Present Illness - Stated complaint Stated Complaint: SZ - History obtained from History obtained from: Patient - Additonal information Additional information: 46-year-old woman with history of asthma, psoriasis, anxiety, depression, and polysubstance abuse having quit opiates, methamphetamines, and alcohol 2 weeks ago. She is an ideal options and getting Suboxone therapy for same. She is also on Paxil and bupropion. She was kind of feeling hot all day and her noted that she started shaking and having seizure-like activity for up to 5 minutes with urinary incontinence and the paramedics describe about a 10-minute postictal period. She is feeling mostly better now, still little off. 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 HEENT: Tonsil/Adenoidectomy - Present Medications Home Medications: Ambulatory Orders Medication Instructions Recorded Confirmed Adalimumab [Humira Pen] 40 mg SQ ONCE #1 kit 12/27/21 07/16/22 Folic Acid 1 mg PO DAILY #30 tab 12/27/21 07/16/22 buPROPion HCL [Bupropion HCl] 75 mg PO TID #90 tab 12/27/21 07/16/22 Lisinopril [Zestril] 20 mg PO DAILY 07/16/22 07/16/22 amLODIPine [Norvasc] 5 mg PO DAILY 07/16/22 07/16/22 Buprenorphine HCl/Naloxone HCl 2.5 tab SL DAILY 07/17/22 07/17/22 [Suboxone 8-2 mg Tab] Acetaminophen [Tylenol] 500 mg PO Q4HR PRN tab 07/20/22 Lidocaine Patch 5% [Lidoderm Patch] 1 patch TOP DAILY PRN #10 patch 07/20/22 Pnv No.121/Iron/Folic Acid 1 each PO DAILY #30 tablet 07/20/22 [ Multivitamin Tablet] oxyCODONE [Roxicodone] 5 mg PO Q4HR PRN #30 tab 07/20/22 clonazePAM [KlonoPIN] 0.5 mg PO BID PRN #20 tablet 07/30/22 - Allergies Allergies/Adverse Reactions: Allergies Allergy/AdvReac Type Severity Reaction Status Date / Time No Known Drug Allergies Allergy Verified 07/30/22 16:34 - Social History Does the pt smoke?: No Smoking Status: Never smoker Does the pt drink ETOH?: Yes - Immunizations Immunizations are current?: Yes - POLST Patient has POLST: No PD ED PE NORMAL - Vitals Vital signs reviewed: Yes - General General: Alert and oriented X 3, No acute distress - HEENT HEENT: Other (Slightly dilated pupils with tongue fasciculations) - Neck Neck: Supple, no meningeal sign, No bony TTP - Cardiac Cardiac: RRR, No murmur - Respiratory Respiratory: No respiratory distress, Clear bilaterally - Abdomen Abdomen: Normal bowel sounds, Soft, Non tender - Back Back: No CVA TTP, No spinal TTP - Derm Derm: Normal color, Warm and dry - Extremities Extremities: Other (Hyperreflexic lower extremities without clonus.) - Neuro Neuro: Alert and oriented X 3, No motor deficit, No sensory deficit, Normal speech Eye Opening: Spontaneous Motor: Obeys Commands Verbal: Oriented GCS Score: 15 Results - Vitals Vitals: Vital Signs - 24 hr 07/30/22 07/30/22 16:25 17:19 Temperature 35.9 C L Heart Rate 105 H 105 H Respiratory 17 15 Rate Blood Pressure 199/124 H 152/120 H O2 Saturation 99 94 Oxygen O2 Source Room air - EKG (time done) 1833 Rate: Rate (enter#) (97) Rhythm: NSR [place]: Normal Intervals: Normal NV QRS: Normal Ischemia: Normal ST segments - Labs Labs: Laboratory Tests 07/30/22 07/30/22 07/30/22 16:40 16:40 16:40 WBC 8.0 RBC 4.39 Hgb 12.5 Hct 39.4 MCV 89.7 MCH 28.5 MCHC 31.7 L RDW 12.9 Plt Count 373 MPV 10.3 Neut # (Auto) 5.9 Lymph # (Auto) 1.6 Titus # (Auto) 0.4 Eos # (Auto) 0.1 Baso # (Auto) 0.0 Absolute Nucleated RBC 0.00 Nucleated RBC % 0.0 Sodium 137 Potassium 3.3 L Chloride 96 L Carbon Dioxide 30 Anion Gap 11.0 BUN 24 H Creatinine 0.9 Estimated GFR (MDRD) 67 L Glucose 97 Calcium 10.4 H Total Bilirubin 0.8 AST 21 ALT 22 Alkaline Phosphatase 72 Total Protein 8.1 Albumin 4.5 Globulin 3.6 Albumin/Globulin Ratio 1.3 Prolactin 35.27 Ethyl Alcohol < 5.0 - Rads (name of study) CT of the head is unremarkable Radiology: EMP read contemporaneously PD MEDICAL DECISION MAKING - ED course ED course: 46-year-old woman presents after a first onset typical seizure confirmed by her 's history and positive prolactin level. Cranial imaging is negative. She does have a history of substance abuse and is on bupropion. Bupropion has a high association with seizures and she is advised to stop this and we will substitute some clonazepam instead pending follow-up. Departure - Departure Disposition: 01 Home, Self Care Clinical Impression: Seizure Condition: Good Record reviewed to determine appropriate education?: Yes Instructions: ED Seizure New Onset Unk Cause Follow-Up: Lashon Roque ARNP [Provider Admit Priv/Credential] - Prescriptions: clonazePAM [KlonoPIN] 0.5 mg PO BID PRN #20 tablet PRN Reason: Anxiety Comments: I sent your prescription electronically to [facility] in [place]. You are seen today for a seizure, there is a known association between withdrawal syndromes and bupropion use that makes your increased risk for seizures. As such I would like you to discontinue the bupropion. I am prescribing something for anxiety that you can take in place of it. As discussed, you should not be driving for the next 6 months per state law. You should follow-up with a primary care physician for reevaluation and consideration for referral to neurology. The primary care physician on-call for emergency department referrals is listed on this form. Call her office for an appointment, next available. Return for new or worsening symptoms. Continue your excellent efforts to abstain from drug and alcohol use.
--- NOTE | 2022-07-30 17:00 | CT Report ---
PROCEDURE: HEAD WO INDICATIONS: new sz TECHNIQUE: Noncontrast 4.5 mm thick angled axial sections acquired from the foramen magnum to the vertex. For r adiation dose reduction, the following was used: automated exposure control, adjustment of mA and/or kV according to patient size. COMPARISON: 07/16/2022 FINDINGS: Image quality: There is streak artifact seen through the skull base. CSF spaces: Basal cisterns are patent. No extra-axial fluid collections. Ventricles are normal in size and shape. Brain: No midline shift. No intracranial masses or hemorrhage. [place]-white matter interface is norm al. Skull and face: Calvarium and visualized facial bones are intact, without suspicious lesions. Sinuses: Visualized sinuses and mastoids are clear. IMPRESSION: Unremarkable noncontrast head CT, without a cause of seizure identified. Reviewed by: Leonel Dunham MD on 07/30/2022 3:58 PM [place] Approved by: Leonel Dunham MD on 07/30/2022 3:58 PM [facility] Station ID: [id number]
[2022-07-30 17:05] LABS: BASOPHILS % (AUTO) 0.4 %; EOSINOPHILS # (AUTO) 0.1 10^3/uL (0.0-0.7); EOSINOPHILS % (AUTO) 0.9 %; HCT - HEMATOCRIT 39.4 % (37.0-47.0); HGB - HEMOGLOBIN 12.5 g/dL (12.0-16.0); LYMPHOCYTES # (AUTO) 1.6 10^3/uL (1.5-3.5); LYMPHOCYTES % (AUTO) 19.5 %; MEAN CORPUSCULAR HEMOGLOBIN 28.5 pg (27.0-31.0); MEAN CORPUSCULAR HGB CONC 31.7 g/dL (32.0-36.0); MEAN CORPUSCULAR VOLUME 89.7 fL (81.0-99.0); MEAN PLATELET VOLUME 10.3 fL (7.9-10.8); MONOCYTES # (AUTO) 0.4 10^3/uL (0.0-1.0); MONOCYTES % (AUTO) 4.8 %; NEUTROPHILS # (AUTO) 5.9 10^3/uL (1.5-6.6); NEUTROPHILS % (AUTO) 74.1 %; PLT - PLATELET COUNT 373 10^3/uL (130-450); RED BLOOD COUNT 4.39 10^6/uL (4.20-5.40); RED CELL DISTRIBUTION WIDTH 12.9 % (12.0-15.0)
[2022-07-30 17:11] LABS: ALBUMIN 4.5 g/dL (3.2-5.5); ALBUMIN/GLOBULIN RATIO 1.3 (1.0-2.2); ALKALINE PHOSPHATASE 72 IU/L (42-121); ALT ALANINE AMINOTRANSFERASE 22 IU/L (10-60); AST ASPARTATE AMINOTRANSFERASE 21 IU/L (10-42); BILIRUBIN,TOTAL 0.8 mg/dL (0.2-1.0); BUN - BLOOD UREA NITROGEN 24 mg/dL (6-20); CALCIUM 10.4 mg/dL (8.5-10.3); CARBON DIOXIDE - CO2 30 mmol/L (21-32); CHLORIDE 96 mmol/L (101-111); CREATININE 0.9 mg/dL (0.4-1.0); ETOH - ETHANOL < 5.0 mg/dL; GFR - MDRD 67 (>89); GLUCOSE 97 mg/dL (70-100); POTASSIUM 3.3 mmol/L (3.5-5.0); SODIUM 137 mmol/L (135-145); TOTAL PROTEIN 8.1 g/dL (6.7-8.2)
[2022-07-30] MEDS ORDERED: clonazePAM 0.5 MG TABLET PO STA (17:45)
[2022-07-30 17:50] VITALS: BP 170/102
== END 2022-07-30 18:05 | disposition home or self-care (01) ==
LOC: EDBD → EDUNIT# → ED 16:19
DX: R56.9 Unspecified convulsions (principal); F15.11 Other stimulant abuse, in remission; F11.11 Opioid abuse, in remission; J45.909 Unspecified asthma, uncomplicated; F41.9 Anxiety disorder, unspecified; F32.A Depression, unspecified; I10 Essential (primary) hypertension
CPT/HCPCS: 36415; 70450; 80053; 80320; 84146; 85025; 93005; 99283; 99284; A9270

== ENCOUNTER 2022-09-05 18:33 | Emergency (ER) | payer MEDICAID ==
[2022-09-05] MEDS ORDERED: SODIUM CHLORIDE 0.9% 1,000 ML IV STA (19:20)
[2022-09-05] MEDS ORDERED: KETOROLAC 15 MG/ML VIAL IVP STA (19:21)
[2022-09-05] MEDS ORDERED: LACTATED RINGERS 1,000 ML IV STA (19:21)
[2022-09-05] MEDS ORDERED: DEXAMETHASONE 10 MG/ML VIAL IVP STA (19:21)
--- NOTE | 2022-09-05 19:23 | ED Physician Documentation ---
History of Present Illness - Stated complaint Stated Complaint: SOA,WEIGHT LOSS,COUGHING - Chief complaint Chief Complaint: General - History obtained from History obtained from: Patient - Additonal information Additional information: 47-year-old woman with history of psoriatic arthritis and psoriasis as well as autoimmune disease presents with symptomatic COVID on day 5. She has been sleeping a lot and achy and does not feel like doing anything. Not eating or drinking well and has lost weight because of it. Review of Systems Constitutional: reports: Chills, Myalgias, Fatigue. denies: Fever Nose: reports: Rhinorrhea / runny nose Throat: denies: Sore throat Cardiac: denies: Chest pain / pressure Respiratory: reports: Dyspnea. 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 HEENT: Tonsil/Adenoidectomy - Present Medications Home Medications: Ambulatory Orders Medication Instructions Recorded Confirmed Adalimumab [Humira Pen] 40 mg SQ ONCE #1 kit 12/27/21 07/16/22 Folic Acid 1 mg PO DAILY #30 tab 12/27/21 07/16/22 buPROPion HCL [Bupropion HCl] 75 mg PO TID #90 tab 12/27/21 07/16/22 Lisinopril [Zestril] 20 mg PO DAILY 07/16/22 07/16/22 amLODIPine [Norvasc] 5 mg PO DAILY 07/16/22 07/16/22 Buprenorphine HCl/Naloxone HCl 2.5 tab SL DAILY 07/17/22 07/17/22 [Suboxone 8-2 mg Tab] Acetaminophen [Tylenol] 500 mg PO Q4HR PRN tab 07/20/22 Lidocaine Patch 5% [Lidoderm Patch] 1 patch TOP DAILY PRN #10 patch 07/20/22 Pnv No.121/Iron/Folic Acid 1 each PO DAILY #30 tablet 07/20/22 [ Multivitamin Tablet] oxyCODONE [Roxicodone] 5 mg PO Q4HR PRN #30 tab 07/20/22 clonazePAM [KlonoPIN] 0.5 mg PO BID PRN #20 tablet 07/30/22 predniSONE [Deltasone] 60 mg PO DAILY 5 Days #15 tablet 09/05/22 - Allergies Allergies/Adverse Reactions: Allergies Allergy/AdvReac Type Severity Reaction Status Date / Time No Known Drug Allergies Allergy Verified 09/05/22 18:42 - Social History Does the pt smoke?: No Smoking Status: Never smoker Does the pt drink ETOH?: Yes Does the pt have substance abuse?: No - Immunizations Immunizations are current?: Yes - POLST Patient has POLST: No PD ED PE NORMAL - Vitals Vital signs reviewed: Yes - General General: Alert and oriented X 3, No acute distress - HEENT HEENT: Pharynx benign, Other (dry mm) - Neck Neck: Supple, no meningeal sign, No bony TTP - Cardiac Cardiac: RRR, No murmur - Respiratory Respiratory: No respiratory distress, Clear bilaterally - Abdomen Abdomen: Normal bowel sounds, Soft, Non tender - Back Back: No CVA TTP, No spinal TTP - Derm Derm: Normal color, Other (Severe diffuse psoriasis flare that spares the face, palms, and soles.) - Neuro Neuro: Alert and oriented X 3, Normal speech Results - Vitals Vitals: Vital Signs - 24 hr 09/05/22 09/05/22 18:42 19:19 Temperature 36.5 C Heart Rate 94 Respiratory 16 17 Rate Blood Pressure 145/90 H O2 Saturation 98 Oxygen O2 Source Room air PD MEDICAL DECISION MAKING - ED course ED course: 47-year-old woman presents with symptomatic COVID with poor appetite and weight loss and she is prescribed steroids given his severe psoriasis flare ongoing as well and 2 L of IV crystalloid. Hopefully the steroids will help with her appetite as well. Departure - Departure Disposition: 01 Home, Self Care Clinical Impression: COVID-19 Condition: Good Record reviewed to determine appropriate education?: Yes Instructions: ED Viral Syndrome Prescriptions: predniSONE [Deltasone] 60 mg PO DAILY 5 Days #15 tablet Comments: You were seen today for symptomatic COVID. You received 2 L of IV fluids and an IV dose of steroids and an anti-inflammatory known as ketorolac. I am also prescribing some steroids to help with your inflammation and the psoriasis. Return for new or worsening symptoms. Hopefully will be better over the next few days.
[2022-09-05 21:26] VITALS: BP 140/90
== END 2022-09-05 21:24 | disposition home or self-care (01) ==
LOC: ED 18:33
DX: U07.1 COVID-19 (principal); R63.0 Anorexia; L40.9 Psoriasis, unspecified; L40.50 Arthropathic psoriasis, unspecified; I10 Essential (primary) hypertension; J45.909 Unspecified asthma, uncomplicated
CPT/HCPCS: 96361; 96374; 96375; 99282; 99284; J7120

== ENCOUNTER 2022-09-18 02:11 | Outpatient (CLI) | payer MEDICAID | END 2022-09-18 02:12 | disposition critical access hospital (66) | LOC: EMS 02:11 | DX: R46.89 Other symptoms and signs involving appearance and behavior (principal); R47.81 Slurred speech; R40.0 Somnolence | CPT/HCPCS: A0425; A0429; A0999 ==

== ENCOUNTER 2022-09-18 02:21 | Emergency (ER) | payer MEDICAID ==
[2022-09-18] MEDS ORDERED: NALOXONE 0.4 MG/ML VIAL IVP STA ×5 (02:39→04:46)
[2022-09-18] MEDS ORDERED: SODIUM CHLORIDE 0.9% 1,000 ML IV STA ×2 (02:53→08:39)
[2022-09-18 03:02] LABS: BASOPHILS % (AUTO) 0.1 %; EOSINOPHILS % (AUTO) 0.4 %; HCT - HEMATOCRIT 41.1 % (37.0-47.0); HGB - HEMOGLOBIN 12.6 g/dL (12.0-16.0); LYMPHOCYTES # (AUTO) 1.6 10^3/uL (1.5-3.5); MEAN CORPUSCULAR HEMOGLOBIN 28.8 pg (27.0-31.0); MEAN CORPUSCULAR HGB CONC 30.7 g/dL (32.0-36.0); MEAN CORPUSCULAR VOLUME 93.8 fL (81.0-99.0); MONOCYTES # (AUTO) 0.4 10^3/uL (0.0-1.0); MONOCYTES % (AUTO) 5.2 %; NEUTROPHILS # (AUTO) 5.1 10^3/uL (1.5-6.6); NEUTROPHILS % (AUTO) 72.2 %; PLT - PLATELET COUNT 314 10^3/uL (130-450); RED BLOOD COUNT 4.38 10^6/uL (4.20-5.40); RED CELL DISTRIBUTION WIDTH 12.8 % (12.0-15.0); WHITE BLOOD COUNT 7.1 x10^3/uL (4.8-10.8)
[2022-09-18 03:17] LABS: MUDS CUTOFF CONCENTRATIONS CUTOFF CONC BELOW:
[2022-09-18 03:18] LABS: ACETAMINOPHEN < 10 ug/mL (10-30); ALBUMIN/GLOBULIN RATIO 1.2 (1.0-2.2); ALKALINE PHOSPHATASE 61 IU/L (42-121); ALT ALANINE AMINOTRANSFERASE 16 IU/L (10-60); AST ASPARTATE AMINOTRANSFERASE 17 IU/L (10-42); BILIRUBIN,TOTAL 0.2 mg/dL (0.2-1.0); BUN - BLOOD UREA NITROGEN 17 mg/dL (6-20); CALCIUM 9.6 mg/dL (8.5-10.3); CARBON DIOXIDE - CO2 30 mmol/L (21-32); CHLORIDE 104 mmol/L (101-111); CREATININE 0.9 mg/dL (0.4-1.0); ETOH - ETHANOL < 5.0 mg/dL; GFR - MDRD 67 (>89); GLUCOSE 111 mg/dL (70-100); LIPASE 41 U/L (22-51); POTASSIUM 3.6 mmol/L (3.5-5.0); SALICYLATE < 6.0 mg/dL; SODIUM 143 mmol/L (135-145); TOTAL PROTEIN 7.4 g/dL (6.7-8.2)
[2022-09-18 03:18] LABS: BILIRUBIN,URINE NEGATIVE (NEGATIVE); GLUCOSE, URINE (UA) NEGATIVE (NEGATIVE); KETONES,URINE (UA) NEGATIVE (NEGATIVE); LEUKOCYTE ESTERASE, URINE NEGATIVE (NEGATIVE); NITRITE,URINE POSITIVE (NEGATIVE); OCCULT BLOOD,URINE SMALL (NEGATIVE); PROTEIN,URINE 30 mg/dL (NEGATIVE); UROBILINOGEN,URINE 0.2 (NORMAL) E.U./dL (NORMAL)
--- NOTE | 2022-09-18 03:18 | ED Physician Documentation ---
History of Present Illness - Stated complaint Stated Complaint: AMS - Chief complaint Chief Complaint: Neuro - History obtained from History obtained from: EMS - Additonal information Additional information: 47yF with hx polysubstance abuse presents bibems with AMS. 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 patient had been completely normal when she went to take a shower an hour before. Upon arrival to ED patient was largely obtunded but did say fentanyl when our staff assistant asked what drugs she had been using. Review of Systems Unable to obtain: Intoxicated PD PAST MEDICAL HISTORY - Past Medical History Past Medical History: Yes Cardiovascular: Hypertension Respiratory: Asthma Neuro: None Endocrine/Autoimmune: None GI: None KEY HOLDER: None : None HEENT: None Psych: Depression, Anxiety Musculoskeletal: None Derm: Psoriasis - Past Surgical History Past Surgical History: Yes /KEY HOLDER: Hysterectomy HEENT: Tonsil/Adenoidectomy - Present Medications Home Medications: Ambulatory Orders Medication Instructions Recorded Confirmed Adalimumab [Humira Pen] 40 mg SQ ONCE #1 kit 12/27/21 09/18/22 Lisinopril [Zestril] 20 mg PO DAILY 07/16/22 09/18/22 Buprenorphine HCl/Naloxone HCl 2.5 tab SL DAILY 07/17/22 09/18/22 [Suboxone 8-2 mg Tab] Acetaminophen [Tylenol] 500 mg PO Q4HR PRN tab 07/20/22 09/18/22 Pnv No.121/Iron/Folic Acid 1 each PO DAILY #30 tablet 07/20/22 09/18/22 [ Multivitamin Tablet] clonazePAM [KlonoPIN] 0.5 mg PO BID PRN #20 tablet 07/30/22 09/18/22 predniSONE [Deltasone] 60 mg PO DAILY 5 Days #15 tablet 09/05/22 09/18/22 Atenolol [Tenormin] 50 mg PO QPM 09/18/22 09/18/22 Lisinopril [Zestril] 40 mg PO DAILY 09/18/22 09/18/22 PARoxetine HCL [Paxil] 60 mg PO DAILY 09/18/22 09/18/22 Pnv No.95/Ferrous Fum/Folic AC 1 tab PO DAILY 09/18/22 09/18/22 [ Tablet] Thiamine [Vitamin B-1] 1 tab PO DAILY 09/18/22 09/18/22 cloNIDine [Catapres] 0.2 mg PO BID 09/18/22 09/18/22 hydroCHLOROthiazide [Hydrodiuril] 1 tab PO DAILY 09/18/22 09/18/22 - Allergies Allergies/Adverse Reactions: Allergies Allergy/AdvReac Type Severity Reaction Status Date / Time No Known Drug Allergies Allergy Verified 09/18/22 02:38 - Social History Does the pt smoke?: No Smoking Status: Never smoker Does the pt drink ETOH?: Yes Does the pt have substance abuse?: No - Immunizations Immunizations are current?: Yes - POLST Patient has POLST: No PD ED PE NORMAL - Vitals Vital signs reviewed: Yes - General General: No acute distress, Well developed/nourished, Other (Initially obtunded, responsive to narcan) - HEENT HEENT: Atraumatic, PERRL, EOMI, Moist mucous membranes, Pharynx benign - Neck Neck: Supple, no meningeal sign - Cardiac Cardiac: RRR - Respiratory Respiratory: No respiratory distress, Clear bilaterally - Abdomen Abdomen: Non tender, Non distended - Derm Derm: Normal color, Warm and dry - Extremities Extremities: No deformity - Neuro Neuro: No motor deficit, No sensory deficit Eye Opening: To Voice Motor: Obeys Commands Verbal: Confused GCS Score: 13 - Psych Psych: Other (intoxicated) Results - Vitals Vitals: Vital Signs - 24 hr 09/18/22 09/18/22 09/18/22 02:23 03:15 03:31 Temperature 36.4 C L 35.6 C L Heart Rate 91 88 87 Respiratory 15 10 L 14 Rate Blood Pressure 114/79 101/64 103/71 O2 Saturation 77 L 100 94 If not protocol 2 2 : Oxygen Flow, liters/minute 09/18/22 09/18/22 09/18/22 04:50 04:54 05:39 Temperature 36.1 C L 36.9 C 35.9 C L Heart Rate 81 91 85 Respiratory 17 21 12 Rate Blood Pressure 121/84 H 121/84 H 135/97 H O2 Saturation 96 100 100 If not protocol 2 2 2 : Oxygen Flow, liters/minute 09/18/22 09/18/22 09/18/22 05:46 06:12 06:35 Temperature 35.8 C L 35.9 C L 36.6 C Heart Rate 88 89 95 Respiratory 13 14 17 Rate Blood Pressure 135/97 H 125/85 H 117/70 O2 Saturation 100 100 95 If not protocol 2 2 : Oxygen Flow, liters/minute Oxygen O2 Source Room air Oxygen Flow Rate 2 - Labs Labs: Laboratory Tests 09/18/22 09/18/22 09/18/22 02:53 02:53 02:53 WBC 7.1 RBC 4.38 Hgb 12.6 Hct 41.1 MCV 93.8 MCH 28.8 MCHC 30.7 L RDW 12.8 Plt Count 314 MPV 11.0 H Neut # (Auto) 5.1 Lymph # (Auto) 1.6 [place] # (Auto) 0.4 Eos # (Auto) 0.0 Baso # (Auto) 0.0 Absolute Nucleated RBC 0.00 Nucleated RBC % 0.0 Sodium 143 Potassium 3.6 Chloride 104 Carbon Dioxide 30 Anion Gap 9.0 BUN 17 Creatinine 0.9 Estimated GFR (MDRD) 67 L Glucose 111 H Calcium 9.6 Total Bilirubin 0.2 AST 17 ALT 16 Alkaline Phosphatase 61 Total Protein 7.4 Albumin 4.0 Globulin 3.4 Albumin/Globulin Ratio 1.2 Lipase 41 TSH 4.39 Urine Color Urine Clarity Urine pH Ur Specific [place] Urine Protein Urine Glucose (UA) Urine Ketones Urine Occult Blood Urine Nitrite Urine Bilirubin Urine Urobilinogen Ur Leukocyte Esterase Urine RBC Urine WBC Ur Squamous Epith Cells Urine Crystals Urine Bacteria Ur Microscopic Review Urine Culture Comments Salicylates < 6.0 Urine Opiates Screen Ur Oxycodone Screen Urine Methadone Screen Ur Propoxyphene Screen Acetaminophen < 10 L Ur Barbiturates Screen Ur Tricyclics Screen Ur Phencyclidine Scrn Ur Amphetamine Screen U Methamphetamines Scrn U Benzodiazepines Scrn Urine Cocaine Screen U Cannabinoids Screen Ethyl Alcohol < 5.0 SARS-CoV-2 (PCR) 09/18/22 09/18/22 03:00 03:13 WBC RBC Hgb Hct MCV MCH MCHC RDW Plt Count MPV Neut # (Auto) Lymph # (Auto) [place] # (Auto) Eos # (Auto) Baso # (Auto) Absolute Nucleated RBC Nucleated RBC % Sodium Potassium Chloride Carbon Dioxide Anion Gap BUN Creatinine Estimated GFR (MDRD) Glucose Calcium Total Bilirubin AST ALT Alkaline Phosphatase Total Protein Albumin Globulin Albumin/Globulin Ratio Lipase TSH Urine Color YELLOW Urine Clarity CLEAR Urine pH 6.0 Ur Specific [place] >=1.030 H Urine Protein 30 H Urine Glucose (UA) NEGATIVE Urine Ketones NEGATIVE Urine Occult Blood SMALL H Urine Nitrite POSITIVE H Urine Bilirubin NEGATIVE Urine Urobilinogen 0.2 (NORMAL) Ur Leukocyte Esterase NEGATIVE Urine RBC 6-10 H Urine WBC 6-10 H Ur Squamous Epith Cells MOD Squamous H Urine Crystals 0-2 Calcium Oxalate Urine Bacteria Many H Ur Microscopic Review INDICATED Urine Culture Comments NOT INDICATED Salicylates Urine Opiates Screen POSITIVE H Ur Oxycodone Screen POSITIVE H Urine Methadone Screen NEGATIVE Ur Propoxyphene Screen NEGATIVE Acetaminophen Ur Barbiturates Screen NEGATIVE Ur Tricyclics Screen NEGATIVE Ur Phencyclidine Scrn NEGATIVE Ur Amphetamine Screen POSITIVE H U Methamphetamines Scrn POSITIVE H U Benzodiazepines Scrn POSITIVE H Urine Cocaine Screen NEGATIVE U Cannabinoids Screen NEGATIVE Ethyl Alcohol SARS-CoV-2 (PCR) NOT DETECTED PD Medical Decision Making - ED course ED course: 47yF with hx polysubstance abuse presents bibems s/p fentanyl use this evening. Reviewed inpatient notes from prior hospitalization this year for altered mentation. Initially tonight, patient arrived obtunded with poor response to stimulation. now s/p 0.1 mg IV narcan, patient had [id number] = [id number] (eye opening on command, speaking in sentences but confused, moving all limbs spontaneously and on command). She will continue to be monitored on equipment monitor phototypesetting and signed out to incoming daytime ED MD pending sobriety and social work evaluation in the morning. Departure - Departure Clinical Impression: Polysubstance (excluding opioids) dependence Condition: Stable Instructions: Addiction Drug Abuse Tx Comments: You were seen in the emergency department for drug abuse. Please follow-up with the detox resources provided. Return to the emergency department if you have any new or worsening symptoms or other concerns. Also follow-up with your primary care provider.
[2022-09-18 03:26] LABS: CLARITY,URINE CLEAR (CLEAR)
[2022-09-18 03:27] LABS: BACTERIA,URINE Many /HPF (None Seen); CRYSTALS,URINE 0-2 Calcium Oxalate /LPF; SQUAMOUS EPITHELIAL CELL,UR MOD Squamous (<= Few)
[2022-09-18 03:28] LABS: COCAINE SCREEN URINE NEGATIVE (NEGATIVE); METHAMPHETAMINES SCREEN, URINE POSITIVE (NEGATIVE); OPIATE SCREEN, URINE POSITIVE (NEGATIVE); THC CANNABINOID SCREEN, URINE NEGATIVE (NEGATIVE)
[2022-09-18 03:29] LABS: AMPHETAMINE SCREEN,URINE POSITIVE (NEGATIVE); BARBITURATE SCREEN,UR NEGATIVE (NEGATIVE); BENZODIAZEPINES SCREEN, URINE POSITIVE (NEGATIVE); METHADONE SCREEN, URINE NEGATIVE (NEGATIVE); OXYCODONE SCREEN, URINE POSITIVE (NEGATIVE); PROPOXYPHENE SCREEN, URINE NEGATIVE (NEGATIVE); TRICYCLIC ANTIDEPRESSANT,URINE NEGATIVE (NEGATIVE)
--- NOTE | 2022-09-18 12:05 | ED Physician Documentation ---
ED Addendum - Addendum Addendum: 09/18/22 12:03 The patient is more alert. She still has some grogginess but is able to answer questions to person place and symptoms. Not exactly sure on time. Her collision technician with her says that she is improving quite a bit. They are both requesting social work however for consideration of a detox treatment as the patient has been newly back on multiple drug abuse. I put in for social work consult. Otherwise the patient does seem to be clearing from her mixed drug over intoxic ation and should be safe for discharge or detox.
[2022-09-18 20:09] VITALS: BP 133/80
--- NOTE | 2022-09-18 20:09 | ED Physician Documentation ---
ED Addendum - Addendum Addendum: 09/18/22 20:04 Patient gradually sobered in the emergency department. This was an accidental overdose. She denies being suicidal. Nothing makes it better or worse. She is currently asymptomatic. She would like to go home with her significant other And follow-up as an outpatient for detox/rehab. Patient has Narcan at home. Patient counseled regarding signs and symptoms for which I believe and urgent re-evaluation would be necessary. Patient with good understanding of and agre ement to plan and is comfortable going home at this time This document was made in part using voice recognition software. While efforts are made to proofread this document, sound alike and grammatical errors may occur. Departure - Departure Disposition: 01 Home, Self Care Clinical Impression: Polysubstance (excluding opioids) dependence Condition: Stable Instructions: Addiction Drug Abuse Tx Follow-Up: your,doctor in 1 week [Other] Comments: You were seen in the emergency department for drug abuse. Please follow-up with the detox resources provided. Return to the emergency department if you have any new or worsening symptoms or other concerns. Also follow-up with your primary care provider. Contact: [facility] [address] [place] [address] Fax: Crisis Line and is available to talk to someone [email or web address] is also available to chat with someone online if you prefer. There are also many resources on this website and apps for your phone to help with your mental health You can also text the word START to [phone] to chat with someome via text.
== END 2022-09-18 20:21 | disposition home or self-care (01) ==
LOC: EDUNIT# → ED 02:21
DX: F19.229 Other psychoactive substance dependence with intoxication, unspecified (principal)
CPT/HCPCS: 36415; 80053; 80306; 80307; 80320; 80329; 81001; 81003; 83690; 84443; 85025; 87086; 96361; 96374; 96376; 99285

== ENCOUNTER 2022-12-06 20:06 | Inpatient (IN) | payer MEDICAID ==
[2022-12-06] MEDS ORDERED: SODIUM CHLORIDE 0.9% 1,000 ML IV STA ×2 (20:09)
--- NOTE | 2022-12-06 20:18 | ED Physician Documentation ---
History of Present Illness - Stated complaint Stated Complaint: OD - Chief complaint Chief Complaint: General - History obtained from History obtained from: Friend - Additonal information Additional information: Patient is unable to give any history. She is brought in by family/friend. He states that he found her on the bed altered. He states that she has a history of methamphetamine use, fentanyl use, Suboxone use, alcohol use. He states that he does not believe she has had any alcohol in about 5 days. He does not know if there was any trauma. Review of Systems Unable to obtain: AMS PD PAST MEDICAL HISTORY - Past Medical History Cardiovascular: Hypertension Respiratory: Asthma Neuro: None Endocrine/Autoimmune: None GI: None PR INTERN: None : None HEENT: None Psych: Depression, Anxiety Musculoskeletal: None Derm: Psoriasis - Past Surgical History Past Surgical History: Yes /PR INTERN: Hysterectomy HEENT: Tonsil/Adenoidectomy - Present Medications Home Medications: Ambulatory Orders Medication Instructions Recorded Confirmed Adalimumab [Humira Pen] 40 mg SQ ONCE #1 kit 12/27/21 09/18/22 Lisinopril [Zestril] 20 mg PO DAILY 07/16/22 09/18/22 Buprenorphine HCl/Naloxone HCl 2.5 tab SL DAILY 07/17/22 09/18/22 [Suboxone 8-2 mg Tab] Acetaminophen [Tylenol] 500 mg PO Q4HR PRN tab 07/20/22 09/18/22 Pnv No.121/Iron/Folic Acid 1 each PO DAILY #30 tablet 07/20/22 09/18/22 [ Multivitamin Tablet] clonazePAM [KlonoPIN] 0.5 mg PO BID PRN #20 tablet 07/30/22 09/18/22 predniSONE [Deltasone] 60 mg PO DAILY 5 Days #15 tablet 09/05/22 09/18/22 Atenolol [Tenormin] 50 mg PO QPM 09/18/22 09/18/22 Lisinopril [Zestril] 40 mg PO DAILY 09/18/22 09/18/22 PARoxetine HCL [Paxil] 60 mg PO DAILY 09/18/22 09/18/22 Pnv No.95/Ferrous Fum/Folic AC 1 tab PO DAILY 09/18/22 09/18/22 [ Tablet] Thiamine [Vitamin B-1] 1 tab PO DAILY 09/18/22 09/18/22 cloNIDine [Catapres] 0.2 mg PO BID 09/18/22 09/18/22 hydroCHLOROthiazide [Hydrodiuril] 1 tab PO DAILY 09/18/22 09/18/22 - Allergies Allergies/Adverse Reactions: Allergies Allergy/AdvReac Type Severity Reaction Status Date / Time No Known Drug Allergies Allergy Verified 09/18/22 02:38 - Social History Does the pt smoke?: No Smoking Status: Never smoker Does the pt drink ETOH?: Yes Does the pt have substance abuse?: No - Immunizations Immunizations are current?: Yes - POLST Patient has POLST: No PD ED PE NORMAL - Vitals Vital signs reviewed: Yes - General General: Other (writhing) - HEENT HEENT: Moist mucous membranes, Other (pupils dilated B. no scalp hematomas) - Neck Neck: Other (no stepoff or deformity) - Cardiac Cardiac: RRR, Strong equal pulses - Respiratory Respiratory: No respiratory distress, Clear bilaterally - Abdomen Abdomen: Soft, Non tender, Non distended - Derm Derm: Warm and dry - Extremities Extremities: No deformity - Neuro Neuro: Other Eye Opening: To Voice Motor: Withdraws to Pain Verbal: Inappropriate GCS Score: 10 Results - Vitals Vitals: Vital Signs - 24 hr 12/06/22 12/06/22 12/06/22 20:30 20:33 21:00 Temperature 36.6 C Heart Rate 99 95 92 Respiratory 17 17 17 Rate Blood Pressure 103/60 188/129 H O2 Saturation 97 94 100 12/06/22 21:30 Temperature Heart Rate 90 Respiratory 20 Rate Blood Pressure 194/134 H O2 Saturation 100 Oxygen O2 Source Room air Oxygen Flow Rate 4 - Labs Labs: Laboratory Tests 12/06/22 12/06/22 12/06/22 20:43 20:43 20:49 WBC 5.1 RBC 4.26 Hgb 12.2 Hct 38.9 MCV 91.3 MCH 28.6 MCHC 31.4 L RDW 12.1 Plt Count 270 MPV 11.9 H Neut # (Auto) 2.6 Lymph # (Auto) 1.9 [place] # (Auto) 0.3 Eos # (Auto) 0.3 Baso # (Auto) 0.0 Absolute Nucleated RBC 0.00 Nucleated RBC % 0.0 Sodium Potassium Chloride Carbon Dioxide Anion Gap BUN Creatinine Estimated GFR (MDRD) Glucose Calcium Total Bilirubin AST ALT Alkaline Phosphatase Total Protein Albumin Globulin Albumin/Globulin Ratio Lipase TSH Urine Color YELLOW Urine Clarity CLEAR Urine pH 6.5 Ur Specific [place] >=1.030 H Urine Protein NEGATIVE Urine Glucose (UA) NEGATIVE Urine Ketones NEGATIVE Urine Occult Blood NEGATIVE Urine Nitrite NEGATIVE Urine Bilirubin NEGATIVE Urine Urobilinogen 0.2 (NORMAL) Ur Leukocyte Esterase NEGATIVE Ur Microscopic Review NOT INDICATED Urine Culture Comments NOT INDICATED Urine HCG, Qual NEGATIVE Salicylates Urine Opiates Screen NEGATIVE Ur Oxycodone Screen NEGATIVE Urine Methadone Screen NEGATIVE Ur Propoxyphene Screen NEGATIVE Acetaminophen Ur Barbiturates Screen NEGATIVE Ur Tricyclics Screen NEGATIVE Ur Phencyclidine Scrn NEGATIVE Ur Amphetamine Screen POSITIVE H U Methamphetamines Scrn POSITIVE H U Benzodiazepines Scrn NEGATIVE Urine Cocaine Screen NEGATIVE U Cannabinoids Screen NEGATIVE Ethyl Alcohol 12/06/22 12/06/22 20:49 20:49 WBC RBC Hgb Hct MCV MCH MCHC RDW Plt Count MPV Neut # (Auto) Lymph # (Auto) [place] # (Auto) Eos # (Auto) Baso # (Auto) Absolute Nucleated RBC Nucleated RBC % Sodium 143 Potassium 3.1 L Chloride 104 Carbon Dioxide 30 Anion Gap 9.0 BUN 12 Creatinine 0.9 Estimated GFR (MDRD) 67 L Glucose 67 L Calcium 9.9 Total Bilirubin 0.5 AST 23 ALT 17 Alkaline Phosphatase 64 Total Protein 7.5 Albumin 4.2 Globulin 3.3 Albumin/Globulin Ratio 1.3 Lipase 40 TSH 3.09 Urine Color Urine Clarity Urine pH Ur Specific [place] Urine Protein Urine Glucose (UA) Urine Ketones Urine Occult Blood Urine Nitrite Urine Bilirubin Urine Urobilinogen Ur Leukocyte Esterase Ur Microscopic Review Urine Culture Comments Urine HCG, Qual Salicylates < 6.0 Urine Opiates Screen Ur Oxycodone Screen Urine Methadone Screen Ur Propoxyphene Screen Acetaminophen < 10 L Ur Barbiturates Screen Ur Tricyclics Screen Ur Phencyclidine Scrn Ur Amphetamine Screen U Methamphetamines Scrn U Benzodiazepines Scrn Urine Cocaine Screen U Cannabinoids Screen Ethyl Alcohol < 5.0 - Rads (name of study) cxr Relevant Findings:: Final report received, See rad report head CT Relevant Findings:: Final report received, See rad report cervical spine CT Relevant Findings:: Final report received, See rad report PD Medical Decision Making - ED course Complexity details: reviewed results, re-evaluated patient, considered di fferential, d/w patient ED course: Patient with altered mental status. Urine toxicology is positive for methamphetamine. She also reportedly has been using fentanyl. Pupils are dilated. Patient will go to CT head and C-spine as she was found on the ground. Patient continues to remain altered. Chest x-ray shows pulmonary edema. BNP was added. Patient will be signed out to the oncoming emergency department physician awaiting CT results and clearance of her mental status, likely drug- related. Patient will be reassessed at that time. This document was made in part using voice recognition software. While efforts are made to proofread this document, sound alike and grammatical errors may occur. Departure - Departure Clinical Impression: Polysubstance abuse Altered mental status Qualifiers: Altered mental status type: unspecified Qualified Code(s): R41.82 - Altered mental status, unspecified Condition: Stable
[2022-12-06 20:57] LABS: MUDS CUTOFF CONCENTRATIONS CUTOFF CONC BELOW:
[2022-12-06 20:59] LABS: BASOPHILS % (AUTO) 0.8 %; EOSINOPHILS # (AUTO) 0.3 10^3/uL (0.0-0.7); EOSINOPHILS % (AUTO) 5.5 %; HCT - HEMATOCRIT 38.9 % (37.0-47.0); HGB - HEMOGLOBIN 12.2 g/dL (12.0-16.0); LYMPHOCYTES # (AUTO) 1.9 10^3/uL (1.5-3.5); LYMPHOCYTES % (AUTO) 37.5 %; MEAN CORPUSCULAR HEMOGLOBIN 28.6 pg (27.0-31.0); MEAN CORPUSCULAR HGB CONC 31.4 g/dL (32.0-36.0); MEAN CORPUSCULAR VOLUME 91.3 fL (81.0-99.0); MEAN PLATELET VOLUME 11.9 fL (7.9-10.8); MONOCYTES # (AUTO) 0.3 10^3/uL (0.0-1.0); MONOCYTES % (AUTO) 6.4 %; NEUTROPHILS # (AUTO) 2.6 10^3/uL (1.5-6.6); NEUTROPHILS % (AUTO) 49.8 %; PLT - PLATELET COUNT 270 10^3/uL (130-450); RED BLOOD COUNT 4.26 10^6/uL (4.20-5.40); RED CELL DISTRIBUTION WIDTH 12.1 % (12.0-15.0); WHITE BLOOD COUNT 5.1 x10^3/uL (4.8-10.8)
[2022-12-06 21:04] LABS: BILIRUBIN,URINE NEGATIVE (NEGATIVE); GLUCOSE, URINE (UA) NEGATIVE (NEGATIVE); KETONES,URINE (UA) NEGATIVE (NEGATIVE); LEUKOCYTE ESTERASE, URINE NEGATIVE (NEGATIVE); NITRITE,URINE NEGATIVE (NEGATIVE); OCCULT BLOOD,URINE NEGATIVE (NEGATIVE); PH,URINE 6.5 PH (5.0-7.5); PROTEIN,URINE NEGATIVE (NEGATIVE); UROBILINOGEN,URINE 0.2 (NORMAL) E.U./dL (NORMAL)
[2022-12-06 21:07] LABS: HCG UR QUAL NEGATIVE
[2022-12-06 21:23] LABS: CLARITY,URINE CLEAR (CLEAR)
[2022-12-06 21:25] LABS: AMPHETAMINE SCREEN,URINE POSITIVE (NEGATIVE); BARBITURATE SCREEN,UR NEGATIVE (NEGATIVE); BENZODIAZEPINES SCREEN, URINE NEGATIVE (NEGATIVE); COCAINE SCREEN URINE NEGATIVE (NEGATIVE); METHADONE SCREEN, URINE NEGATIVE (NEGATIVE); METHAMPHETAMINES SCREEN, URINE POSITIVE (NEGATIVE); OPIATE SCREEN, URINE NEGATIVE (NEGATIVE); OXYCODONE SCREEN, URINE NEGATIVE (NEGATIVE); PROPOXYPHENE SCREEN, URINE NEGATIVE (NEGATIVE); THC CANNABINOID SCREEN, URINE NEGATIVE (NEGATIVE); TRICYCLIC ANTIDEPRESSANT,URINE NEGATIVE (NEGATIVE)
[2022-12-06 21:28] LABS: ACETAMINOPHEN < 10 ug/mL (10-30); ALBUMIN 4.2 g/dL (3.2-5.5); ALBUMIN/GLOBULIN RATIO 1.3 (1.0-2.2); ALKALINE PHOSPHATASE 64 IU/L (42-121); ALT ALANINE AMINOTRANSFERASE 17 IU/L (10-60); AST ASPARTATE AMINOTRANSFERASE 23 IU/L (10-42); BILIRUBIN,TOTAL 0.5 mg/dL (0.2-1.0); BUN - BLOOD UREA NITROGEN 12 mg/dL (6-20); CALCIUM 9.9 mg/dL (8.5-10.3); CARBON DIOXIDE - CO2 30 mmol/L (21-32); CHLORIDE 104 mmol/L (101-111); CREATININE 0.9 mg/dL (0.4-1.0); ETOH - ETHANOL < 5.0 mg/dL; GFR - MDRD 67 (>89); GLUCOSE 67 mg/dL (70-100); LIPASE 40 U/L (22-51); POTASSIUM 3.1 mmol/L (3.5-5.0); SALICYLATE < 6.0 mg/dL; SODIUM 143 mmol/L (135-145); TOTAL PROTEIN 7.5 g/dL (6.7-8.2)
--- NOTE | 2022-12-06 21:31 | XRAY Report ---
PROCEDURE: Chest 1 View X-Ray INDICATIONS: dyspnea TECHNIQUE: One view of the chest was acquired. COMPARISON: Chest x-ray 07/17/2022. FINDINGS: Surgical changes and devices: None. Lungs and pleura: There is pulmonary vascular prominence suggestive of mild edema. No definite pleur al effusions or pneumothorax, with evaluation limited due to supine technique. Mediastinum: Mediastinal contours appear unchanged. Heart size is normal. Bones and chest wall: No suspicious bony lesions. Overlying soft tissues appear unremarkable. IMPRESSION: 1. Mild pulmonary edema. Reviewed by: Enrique Herrmann MD on 12/06/2022 9:30 PM PDT Approved by: Enrique Herrmann MD on 12/06/2022 9:30 PM PDT Station ID: [id number]
--- NOTE | 2022-12-06 22:26 | ED Physician Documentation ---
ED Addendum - Addendum Addendum: 12/06/22 22:25 EKG time 2218. Rate 91, sinus rhythm no ST changes. Borderline intrav entricular conduction delay. Prolonged QT interval Departure - Departure Clinical Impression: Polysubstance abuse, QT prolongation Altered mental status Qualifiers: Altered mental status type: unspecified Qualified Code(s): R41.82 - Altered mental status, unspecified Condition: Stable
--- NOTE | 2022-12-06 22:26 | CT Report ---
PROCEDURE: HEAD WO INDICATIONS: altered mental status, found on the bed TECHNIQUE: Noncontrast 4.5 mm thick angled axial sections acquired from the foramen magnum to the vertex. For r adiation dose reduction, the following was used: automated exposure control, adjustment of mA and/or kV according to patient size. COMPARISON: None. FINDINGS: Image quality: There is bilateral metallic streak artifact slightly limiting evaluation. CSF spaces: Basal cisterns are patent. No extra-axial fluid collections. Ventricles are normal in size and shape. Brain: No intracranial hemorrhage, mass, or mass effect. [place]-white matter interface appears preser cristina. Skull and face: Calvarium and visualized facial bones are intact, without suspicious lesions. Sinuses: Visualized sinuses and mastoids are clear. IMPRESSION: 1. No acute intracranial abnormality. Reviewed by: Enrique Herrmann MD on 12/06/2022 10:25 PM PDT Approved by: Enrique Herrmann MD on 12/06/2022 10:25 PM PDT Station ID: [id number]
--- NOTE | 2022-12-06 22:29 | CT Report ---
PROCEDURE: CERVICAL SPINE WO INDICATIONS: altered mental status, found on the bed TECHNIQUE: Noncontrast 3 mm thick sections acquired from the skull base to the T4 level. Sagittal and coronal r eformats were then constructed. For radiation dose reduction, the following was used: automated exp osure control, adjustment of mA and/or kV according to patient size. COMPARISON: None. FINDINGS: Image quality: Excellent. Bones: No fractures or subluxation. There is moderate to severe degenerative disc disease at C5-C6 a nd C6-C7. Multilevel facet arthropathy demonstrated throughout the cervical spine. Visualized superio r ribs are intact. Soft tissues: Prevertebral soft tissues are normal in thickness. No paravertebral hematomas. No ap ical pneumothoraces. IMPRESSION: 1. No acute fracture or subluxation. Reviewed by: Enrique Herrmann MD on 12/06/2022 10:28 PM PDT Approved by: Enrique Herrmann MD on 12/06/2022 10:28 PM PDT Station ID: [id number]
[2022-12-07] MEDS ORDERED: LORazepam 2 MG/ML VIAL IVP STA (01:45)
--- NOTE | 2022-12-07 03:21 | ED Physician Documentation ---
ED Addendum - Addendum Addendum: 12/07/22 05:53 Patient received a signout from outgoing physician, please see their do cumentation for further detail. In short patient 47-year-old female with history of polysubstance abuse presenting to the emergency department with acute altered mental status. Found altered by family. Evaluated independently at bedside and found to be somewhat agitated however has a generally nonfocal nonlateralizing neurologic exam. Is able to tell me her name but not date of . Family reports that she is having waxing and waning episodes of attentiveness. States that she was able to converse fluently with them however then becomes either somnolent or agitated and less communicative. I did order for 1 mg Ativan for agitation.Patient's EKG as dictated by the outgoing physician does have a prolonged QTc and this will be communicated to the oncoming physician. All labs and imaging reviewed. Patient monitored carefully throughout my shift with no acute change in condition. Will be signing out to the oncoming physician, please see their documentation for further detail. 12/08/22 03:07
[2022-12-07] MEDS ORDERED: ATROPINE ABBOJECT 1 MG/10 ML SYRINGE IVP ONE (10:35)
[2022-12-07] MEDS ORDERED: EPINEPHrine ABBOJECT 1 MG/10 ML SYRINGE IVP ONE (10:35)
[2022-12-07] MEDS ORDERED: SODIUM CHLORIDE 0.9% 1,000 ML IV STA (13:07)
[2022-12-07] MEDS ORDERED: NALOXONE 0.4 MG/ML VIAL ONE (13:59)
[2022-12-07] MEDS ORDERED: NOREPINEPHRINE/0.9 % NS 8 MG/250 ML BAG IV SCH (14:00)
[2022-12-07] MEDS ORDERED: NOREPINEPHRINE/0.9 % NS 8 MG/250 ML BAG IV ONE (14:02)
--- NOTE | 2022-12-07 14:52 | XRAY Report ---
PROCEDURE: Chest for Line Placement INDICATIONS: POST CPR TECHNIQUE: One view of the chest was acquired. COMPARISON: 12/06/2022 FINDINGS: Surgical changes and devices: Pacing pads in place. ET tube terminates in appropriate position. A ce ntral line terminates in the lower SVC. Enteric tube terminates in the stomach. Lungs and pleura: Moderate diffuse lung disease. Low lung volumes. No drainable effusion. Mediastinum: Heart size is within normal limits Bones and chest wall: No suspicious bony lesions. Overlying soft tissues appear unremarkable. Par tially visualized gaseous distention of loops of bowel. IMPRESSION: Moderate infectious or edematous diffuse lung disease. Consider future imaging surveillance to assess for resolution. Appropriate positioning of life support lines. Partially visualized gaseous distention of loops of bowel. Reviewed by: Cameron Lopez MD on 12/07/2022 2:51 PM PDT Approved by: Cameron Lopez MD on 12/07/2022 2:51 PM PDT Station ID: [id number]
[2022-12-07 14:56] LABS: ABG BASE EXCESS -4.5 mmol/L (-2.0-3.0); ABG HCO3 21.8 mmol/L (22.0-26.0); ABG OXYGEN SATURATION 99 % (94-98); ABG PCO2 45 mmHg (34-45); ABG TCO2 23.2 MMOL/L (21.0-29.0); ALLEN TEST POSITIVE
[2022-12-07 14:57] LABS: ABG MODE OF VENTILATION ASSIST/CONTROL; ABG RESPIRATORY RATE 20 b/min
[2022-12-07 14:58] LABS: ABG PO2 333 mmHg (80-100)
[2022-12-07 15:24] LABS: MUDS CUTOFF CONCENTRATIONS CUTOFF CONC BELOW:
[2022-12-07 15:28] LABS: BASOPHILS % (AUTO) 0.2 %; EOSINOPHILS % (AUTO) 0.2 %; HCT - HEMATOCRIT 33.8 % (37.0-47.0); LYMPHOCYTES # (AUTO) 0.8 10^3/uL (1.5-3.5); LYMPHOCYTES % (AUTO) 15.3 %; MEAN CORPUSCULAR HEMOGLOBIN 29.3 pg (27.0-31.0); MEAN CORPUSCULAR HGB CONC 29.6 g/dL (32.0-36.0); MEAN CORPUSCULAR VOLUME 99.1 fL (81.0-99.0); MONOCYTES # (AUTO) 0.1 10^3/uL (0.0-1.0); NEUTROPHILS # (AUTO) 4.5 10^3/uL (1.5-6.6); NEUTROPHILS % (AUTO) 81.4 %; PLT - PLATELET COUNT 278 10^3/uL (130-450); RED BLOOD COUNT 3.41 10^6/uL (4.20-5.40); WHITE BLOOD COUNT 5.5 x10^3/uL (4.8-10.8)
[2022-12-07 15:33] LABS: ALBUMIN/GLOBULIN RATIO 1.1 (1.0-2.2); ALKALINE PHOSPHATASE 52 IU/L (42-121); ALT ALANINE AMINOTRANSFERASE 46 IU/L (10-60); AST ASPARTATE AMINOTRANSFERASE 76 IU/L (10-42); BILIRUBIN,TOTAL 0.2 mg/dL (0.2-1.0); BUN - BLOOD UREA NITROGEN 9 mg/dL (6-20); CALCIUM 8.9 mg/dL (8.5-10.3); CARBON DIOXIDE - CO2 28 mmol/L (21-32); CHLORIDE 109 mmol/L (101-111); CREATININE 1.1 mg/dL (0.4-1.0); ETOH - ETHANOL < 5.0 mg/dL; GFR - MDRD 53 (>89); GLUCOSE 258 mg/dL (70-100); LIPASE 29 U/L (22-51); POTASSIUM 4.2 mmol/L (3.5-5.0); SODIUM 141 mmol/L (135-145); TOTAL PROTEIN 5.7 g/dL (6.7-8.2)
[2022-12-07 15:50] LABS: AMPHETAMINE SCREEN,URINE POSITIVE (NEGATIVE); BENZODIAZEPINES SCREEN, URINE POSITIVE (NEGATIVE); COCAINE SCREEN URINE NEGATIVE (NEGATIVE); METHADONE SCREEN, URINE NEGATIVE (NEGATIVE); METHAMPHETAMINES SCREEN, URINE POSITIVE (NEGATIVE); OPIATE SCREEN, URINE NEGATIVE (NEGATIVE); THC CANNABINOID SCREEN, URINE NEGATIVE (NEGATIVE); TRICYCLIC ANTIDEPRESSANT,URINE NEGATIVE (NEGATIVE)
[2022-12-07 15:51] LABS: BARBITURATE SCREEN,UR NEGATIVE (NEGATIVE); OXYCODONE SCREEN, URINE NEGATIVE (NEGATIVE); PROPOXYPHENE SCREEN, URINE NEGATIVE (NEGATIVE)
[2022-12-07] MEDS ORDERED: HALOPERIDOL 5 MG/ML VIAL IM STA (16:57)
[2022-12-07] MEDS ORDERED: LORazepam 2 MG/ML VIAL IM STA (16:57)
--- NOTE | 2022-12-07 16:57 | CT Report ---
PROCEDURE: HEAD WO INDICATIONS: ALOC, arrest TECHNIQUE: Noncontrast 4.5 mm thick angled axial sections acquired from the foramen magnum to the vertex. For r adiation dose reduction, the following was used: automated exposure control, adjustment of mA and/or kV according to patient size. COMPARISON: 12/06/2022 FINDINGS: Image quality: Good CSF spaces: Basal cisterns are patent. Lateral ventricles are symmetric. Brain: Sulcal definition is maintained, allowing for differences in technique and imaging positioning no acute injury or hemorrhage or gross loss of douglass-white differentiation. Craniofacial structures: No displaced fracture. Sinuses are clear. Orbits are intact. IMPRESSION: No acute intracranial abnormality. If there is high concern for parenchymal pathology, MRI is recomme nded. Reviewed by: Cameron Lopez MD on 12/07/2022 4:55 PM PDT Approved by: Cameron Lopez MD on 12/07/2022 4:55 PM PDT Station ID: [id number]
[2022-12-07] MEDS ORDERED: ONDANSETRON ODT 4 MG TABLET TL PRN (17:43)
--- NOTE | 2022-12-07 18:03 | HISTORY & PHYSICAL EXAMINATION ---
Chief Complaint - Chief Complaint Chief Complaint: Respiratory arrest followed by cardiac arrest History of Present Illness - Admitted From Admitted From:: ER after respiratory arrest - History Obtained From Records Reviewed: [facility] History obtained from: Dr. Kim Exam Limitations: mirna is intubated - History of Present Illness HPI Comment/Other: This is a 46-year-old female who we met in June 2022 when she was brought to the emergency room for acute encephalopathy. She was found in her car, unresponsive and brought in by EMS. By the time she got to the emergency room she was agitated, and urine tox screen was positive for methamphetamines, amphetamines, and opioids. On her medication list is Suboxone. After a few hours the patient was found hypotensive, less responsive, given Narcan and had good response with that. She was transferred to the ICU with a Narcan drip. She gradually became more awake, and when she was awake, she was eating, appropriate, and she was stabilized for discharge. She has been seen in the emergency room a few times. With the visit in August 2022 she was lethargic, did not respond to verbal prompting. was at the bedside. expressed desire for detox facility. The patient was never really alert enough to participate in a meaningful conversation and her was provided with a list of detox facilities. She was sent home once more awake but never required admission. Her brought her in December 06 around 8:30 in the evening because he felt that she had a potential drug overdose. She was ingesting methamphetamines. Her had found her in their bed, altered. He also shared that she has a history of fentanyl use, Suboxone use, alcohol use. Her pupils were dilated. CT of the head was negative. Labs showed a mild low potassium of 3.1. CMP was normal. TSH was normal. CBC was normal. Urine tox screen yesterday was posit mireya for amphetamines methamphetamines. But there is no alcohol on board. No acetaminophen on board. No salicylates. She was slightly agitated when they woke her up. She was given Ativan overnight. They kept her in the emergency room for unclear reasons. I am not sure if they wanted to admit her and there is no bed available. Social work was able to meet with the and patient yesterday. Per her note: Attempted to meet with patient to complete MHE. Patient did not wake to delinquency prevention social worker prompting and spouse, Juan Jose, reported patient has not woken up since calming down in the ED. He verbalized patient may be sleeping off the methamphetamines she ingested yesterday. Juan Jose reports that patient is meeting with Jaky through [facility] and a provider named Geeta but he is unsure who Geeta is connected to. Juan Jose reported that patient was cooperating with her outpatient team for a while however patient also experiences active auditory hallucinations. Recently, the began telling patient "everyone is against you", "they all think you're with him for his money", etc which is leading to increased paranoia. Patient was about 4-5 weeks sober from substances whens she purchased methamphetamines yesterday. Juan Jose stated that the patient is very aware of her tolerance to the substance and expressed concern that patient may have intentionally overdosed. He described h er as "seasoned" and aware of her tolerance even after about 1 month of sobriety. Juan Jose reports patient has been hearing auditory hallucinations for about 2 years and patient is not honest about it with her outpatient team. He is unaware of any command hallucinations but does express concern patient is attempting to self medicate. Juan Jose has Parkinson's and a special needs daughter at home so he relies on patient for support and help at home. He verbalized willingness to take patient home when she stabilizes in the ED however he is also supportive of inpatient hospitalization if appropriate and patient is agreeable. was at the bedside most of the today. He left, and a short time after he left, the patient was noted to bradycardia on telemetry. Nursing went in to evaluate her and found her cyanotic, with agonal breathing. As such a code was called. She received minimal chest compressions and responded mainly to intubation. She did receive some epi and atropine as well. She is hypotensive and now on Levophed. Repeat talk screen now shows benzodiazepines but we think that is positive from the Ativan she received earlier. We do not know if she took her own Suboxone which is very long-acting. She did this the last time but we were able to put her on a Narcan drip with her last admission and she slowly rebounded without needing to be intubated. Suboxone is not on her urine tox screen. The emergency room provider and I discussed the case. We discussed possibility for stroke, subdural bleed, infection with pneumonia or UTI, OH, and we kept on coming back to her history of inappropriate opioid use, Suboxone use and think that she may just had respiratory arrest from Suboxone and opioids. The emergency room doctor approached me for admission. I was willing to admit this patient but I wanted to make sure the family had expectations that were realistically set. We are a critical access hospital and we do not have access to specialty care. If this patient needed a hand singer, reception, etc., we would not be able to provide that for her. The emergency room doctor was able to speak down to the and have that long discussion with him as well as the patient's brother. They recognize that we have limited specialty availability, and do not want her to be transferred. As such I will be admitting the patient after suffering a respiratory arrest, now intubated for hypoxemia most likely due to recreational substance overdose versus prescription medication overdose. History - Past Medical History Cardiovascular: reports: Hypertension Respiratory: reports: Asthma Neuro: reports: None Endocrine/Autoimmune: reports: None GI: reports: None NATURAL RESOURCES EXTENSION EDUCATOR: reports: None : reports: None HEENT: reports: None Psych: reports: Depression, Anxiety Musculoskeletal: reports: None Derm: reports: Psoriasis MRSA Hx?: Yes - Past Surgical History /NATURAL RESOURCES EXTENSION EDUCATOR: reports: Hysterectomy HEENT: reports: Tonsil/Adenoidectomy - Family & Social History Family History Comment/Other: Obtained from her . Father is alive and well with no major medical illnesses. Mom is unknown. Father has not been in contact with her for decades. No siblings. 2 children that are alive and well and healthy Living arrangement: At home Living Situation: With spouse/s.o. Social History Notes: She is to her third . Her has Parkinson's. relies on the patient to help him take care of his disabled daughter. His Parkinson's was quite debilitating. But he had neurostimulator was placed and his tremor is remarkably controlled now. She has a long history of polysubstance abuse since age 13. Non-smoker. Does have a history of alcohol abuse. 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 He met her when he started taking photos of her and that was 14 years ago. - POLST Patient has POLST: No Meds/Allgy - Home Medications Home Medications: Ambulatory Orders Medication Instructions Recorded Confirmed Adalimumab [Humira Pen] 40 mg SQ ONCE #1 kit 12/27/21 12/07/22 Buprenorphine HCl/Naloxone HCl 2.5 tab SL DAILY 07/17/22 12/07/22 [Suboxone 8-2 mg Tab] Acetaminophen [Tylenol] 500 mg PO Q4HR PRN tab 07/20/22 12/07/22 Pnv No.121/Iron/Folic Acid 1 each PO DAILY #30 tablet 07/20/22 12/07/22 [ Multivitamin Tablet] clonazePAM [KlonoPIN] 0.5 mg PO BID PRN #20 tablet 07/30/22 12/07/22 predniSONE [Deltasone] 60 mg PO DAILY 5 Days #15 tablet 09/05/22 12/07/22 Atenolol [Tenormin] 50 mg PO QPM 09/18/22 12/07/22 Lisinopril [Zestril] 40 mg PO DAILY 09/18/22 12/07/22 PARoxetine HCL [Paxil] 60 mg PO DAILY 09/18/22 12/07/22 Thiamine [Vitamin B-1] 1 tab PO DAILY 09/18/22 12/07/22 cloNIDine [Catapres] 0.2 mg PO BID 09/18/22 12/07/22 hydroCHLOROthiazide [Hydrodiuril] 1 tab PO DAILY 09/18/22 12/07/22 - Allergies Allergies/Adverse Reactions: Allergies Allergy/AdvReac Type Severity Reaction Status Date / Time No Known Drug Allergies Allergy Verified 09/18/22 02:38 Review of Systems - Other Findings Other Findings: Unable to obtain due to patient's being Prior Level of Functionality: Has been describes her as able to dress herself, feed herself, drive a car, cook, clean Exam - Vital Signs Reviewed Vital Signs: Yes Vital Signs: Vital Signs x48h Temp Pulse Resp BP Pulse Ox O2 Flow Rate 12/07/22 17:37 36.4 C L 87 20 144/97 H 99 12/07/22 17:26 88 20 148/99 H 99 12/07/22 16:41 92 12/07/22 16:37 94 20 161/106 H 100 12/07/22 15:53 94 20 155/107 H 100 12/07/22 15:32 99 20 148/99 H 100 12/07/22 15:19 100 20 145/100 H 100 12/07/22 15:10 97 20 128/89 H 100 12/07/22 14:51 100 20 139/98 H 100 12/07/22 14:43 102 H 20 148/103 H 100 12/07/22 14:19 98 21 87/57 L 93 12/07/22 14:18 78 12/07/22 14:11 94 20 69/43 L 95 12/07/22 13:11 86 13 82/50 L 96 2 12/07/22 12:27 98 15 122/77 97 12/07/22 11:22 87 13 114/70 100 12/07/22 10:31 91 13 127/78 98 Conclusion/Plan - Problem List (1) Respiratory arrest before cardiac arrest Conclusion/Plan: She came very close to having a respiratory arrest in June. We were able to mitigate that with the Narcan drip. This time I think we were not as successful. EKG shows evidence of QT interval prolongation. But she does not have a history of methadone use.She was on telemetry and there is no V. tach noted. It was sinus bradycardia. I do believe that she most likely had an overdose of opioids whether they were recreational or prescription, and now needs to have respiratory support until the drugs were off. After intubation blood gas was 7.3, PCO2 45, PO2 333, base excess -4.5. She was on assist-contr ol, tidal volume of 400, rate of 20. FiO2 100%. Plan: Inpatient status in ICU Narcan drip I will decrease her oxygen delivery and aim for an O2 sat of 92 to 94%. Continue current tidal volume and rate. Reassess respiratory drive, alertness on exam tomorrow and repeat blood gas tomorrow. (2) Hypotension Conclusion/Plan: I think her hypotension is multifactorial. She had a cardiac arrest, she may have infection, and she is most likely dehydrated with poor p.o. intake due to her substance abuse. Troponin is normal. Even after the code. So I do not suspect cardiac event. Plan: Continue Levophed and aim for a mean arterial pressure of 65 IV fluids of normal saline at 100 cc an hour Narcan drip to mitigate hypotension from opioid use or Suboxone use Empiric antibiotic therapy, at least until tomorrow where I can assess patient's review of systems better Qualifiers: Hypotension type: unspecified hypotension type Qualified Code(s): I95.9 - Hypotension, unspecified (3) Polysubstance abuse Conclusion/Plan: Suboxone prescription, opioid (unknown of heroin or prescription drug), methamphetamines, alcohol. Plan: When she is awake and extubated, monitor for signs and symptoms of withdrawal Banana bag not needed at this time. Alcohol has not been part of her life for the last few weeks according to her the record (4) Hypertension Conclusion/Plan: At home she is on Catapres 0.2 mg p.o. twice daily, Zestril 40 mg p.o. daily, hydrochlorothiazide 25 mg tablet daily, and Tenormin 50 mg p.o. every afternoon. As she has been stabilized, she is no longer needing Levophed and pressure is rebounding. As she is transferred to the ICU blood pressure is now 144/97. We will I will not resume her medications tonight, I will leave as needed hydralazine orders. Hopefully she can be more awake tomorrow that I can extubate her and she can resume her home meds. Qualifiers: Hypertension type: primary hypertension Qualified Code(s): I10 - Essential (primary) hypertension (5) Hallucination Conclusion/Plan: With paranoid ideation. She is seen by mental health provider. I will let them know that she is here. I do not know if her paranoid ideation and hallucinations are due to her substance abuse. Or does she have an endogenous disorder.Her states that she does use the phrase schizophrenia or schizoaffective disorder occasionally. He really does not know what her final diagnosis is but she does not really take medicines for schizophrenia that he knows of. Plan: During her stay she may require Abilify or antipsychotics due to her mental illness and not for restraint. I will discussed with her mental health provider once I can identify who they are. - Lab Results Lab results reviewed: Yes Fish Bones: 12/07/22 14:14 12/07/22 14:14 - Diagnostic Imaging Results Diagnostic Imaging Results: positive: Final report reviewed Diagnostic Imaging Results Comments: Chest x-ray yesterday had mild pulmonary edema by interpretation. Repeat chest x-ray today after respiratory arrest has moderate infectious or edematous diffuse lung disease. Low lung volumes. No effusion. Head CT yesterday had no acute intracranial abnormality. Repeat head CT was done today and again no acute intracranial abnormality. Cervical spine CT done yesterday had no acute fracture or subluxation.
[2022-12-07] MEDS: NALOXONE 2 MG in SODIUM CHLORIDE 0.9% 495 ML IV SCH ×2 (18:53→23:59)
[2022-12-07] MEDS: SODIUM CHLORIDE 0.9% 1,000 ML IV SCH (18:55)
--- NOTE | 2022-12-07 19:00 | ED Physician Documentation ---
ED Addendum - Addendum Addendum: 12/07/22 18:48 The patient was signed out to me at change of shift by Dr. Hunt, pending improvement in mental status With plan to have social work evaluate the patient from a mental health perspective. The patient had presented to the emergency department yesterday afternoon/evening with altered mental status, having been found on the floor at home by her . The patient has a known history of polysubstance abuse including amphetamines, fentanyl, Suboxone, and alcohol. It is not known by the if the patient uses any other substances. The patient was arousable to stimulation and was able to talk a little on arrival, though she was very altered; however, she became increasingly Agitated overnight and required Ativan to calm her down. At the time of signout to me, the patient was stable, but somnolent and was felt to likely need time to metabolize and reach a mental state that would be amenable to evaluation by social work. The patient had been worked up extensively in the emergency department, including with brain imaging, labs including TSH and extensive talks work-up including aspirin and acetaminophen levels. Ethanol and urine drug screen were also performed. The only findings of significance were that the drug screen was positive for amphetamines and methamphetamines. Otherwise, despite extensive work-up, no other cause for the patient's altered mental status was found. I was alerted by nursing staff in the afternoon that the patient's respirations seemed shallow, though the rate of an appropriate rate of 13/min and the patient's oxygen saturation was still 100% on room air. We did keep the patient closely monitored, and she seemed to be stable but about 30 minutes later, she was noted to have an abrupt decline in her heart rate down into the teens and an oxygen desaturation. Upon arrival in the room, the patient was found to be cyanotic and with no respiratory effort. She was also pulseless. A CODE BLUE was called and resuscitation ensued with repeated rounds of CPR and administration of epinephrine and atropine. After the second round of epinephrine, the patient was found to have a pulse. I did intubate her and the patient stabilized fairly well after this. She was found to be somewhat hypotensive, however, so norepinephrine was started as a drip. I placed a central line for increased access for the patient. Of note was that the patient did not have any response to noxious stimuli and did not require any sedation whatsoever. The did arrive and I spoke with him at length regarding the patient's condition. She has failed to arouse and in fact her mental status seems to have deteriorated and it is not exactly clear why. I was concerned that possibly the patient was given something by one of her visiting family members, but the stated that he had not given her anything in the urine drug screen that we repeated still showed amphetamines and also reflected the benzos that the patient was given overnight, but did not show anything else. I repeated all of the patient's labs, with the only significant change being a drop in the hemoglobin by 2 g. However, the patient had no evidence of bleeding anywhere and I suspected that this is partly due to aggressive hydration. I discussed with the and the patient's father who is also here, that at this point, we can attempt to transfer the patient which has been a very long process of late as all the hospitals are exceedingly full and even overflowing with patients, or we can keep the patient here with fewer specialty services, but keep her in an intensive care setting and wait to see if the effects of what ever she took wear off. The and father stated they would prefer the patient stays here. I spoke with Dr. Renee, who is on-call for hospitalist service, and she was agreeable to admitting the patient. The patient remained very stable and was on minimal norepinephrine at the time of reevaluation. We were able to decrease her FiO2 on the vent because of a very high oxygenation and also bring her initial rate down, since her PCO2 is not nearly as high as expected and she was only mildly acidotic. Patient was stable at the time of transfer to the ICU. Procedure notes: 1.Endotracheal intubation: Intubated by direct visualization using MAC 3 blade and 7.5 tube. Tube visualized going through the cords, breath sounds equal bilaterally, no air entry into the stomach, good color change with capnometer, and chest x-ray indicated to position and trachea. Tube was advanced 2 cm after placement and review of chest x-ray. 2. Central venous catheter placement: Triple-lumen catheter placed under sterile precautions with Seldinger technique. A, and right subclavian vein. Vein cannulated on first attempt, no air was noted to be entering the syringe, nonpulsatile, dark blood noted in syringe upon cannulation of the vein. Secured at 17 cm. Chest x-ray showed no pneumothorax and good placement of the catheter tip. Critical care time: 45 minutes. Critical care time was necessary, due to high probability of , secondary to cardiac arrest and respiratory arrest. Critical care time includes direct care, reassessment of patient, review of monitor strips and postintubation chest x-ray, discussion of the case with family for treatment decision, and discussion of the case with industrial rehabilitation consultant. Procedures included in the critical care time are ventilator management. Procedures not included in the critical care time or intubation and central line placement. Please refer to the progress note above for details. Final impression: 1. Polysubstance abuse 2. Altered mental status 3. Cardiac arrest 4. Respiratory failure Disposition: Admitted to ICU in critical condition. 12/07/22 19:00
[2022-12-07 19:11] LABS: BILIRUBIN,URINE NEGATIVE (NEGATIVE); GLUCOSE, URINE (UA) 100 mg/dL (NEGATIVE); KETONES,URINE (UA) TRACE mg/dL (NEGATIVE); LEUKOCYTE ESTERASE, URINE NEGATIVE (NEGATIVE); NITRITE,URINE NEGATIVE (NEGATIVE); OCCULT BLOOD,URINE NEGATIVE (NEGATIVE); PROTEIN,URINE NEGATIVE (NEGATIVE); UROBILINOGEN,URINE 0.2 (NORMAL) E.U./dL (NORMAL)
[2022-12-07 19:12] LABS: CLARITY,URINE CLEAR (CLEAR)
[2022-12-08 02:39] LABS: ABG BASE EXCESS 0.8 mmol/L (-2.0-3.0); ABG HCO3 23.9 mmol/L (22.0-26.0); ABG OXYGEN SATURATION 96 % (94-98); ABG PCO2 33 mmHg (34-45); ABG PH 7.48 (7.35-7.45); ABG PO2 76 mmHg (80-100); ALLEN TEST POSITIVE
[2022-12-08 02:40] LABS: ABG MODE OF VENTILATION ASSIST/CONTROL; ABG RESPIRATORY RATE 16 b/min
[2022-12-08 04:41] LABS: HCT - HEMATOCRIT 31.9 % (37.0-47.0); HGB - HEMOGLOBIN 10.2 g/dL (12.0-16.0); LYMPHOCYTES # (AUTO) 0.6 10^3/uL (1.5-3.5); LYMPHOCYTES % (AUTO) 9.5 %; MEAN CORPUSCULAR HEMOGLOBIN 29.3 pg (27.0-31.0); MEAN CORPUSCULAR VOLUME 91.7 fL (81.0-99.0); MEAN PLATELET VOLUME 11.1 fL (7.9-10.8); MONOCYTES # (AUTO) 0.3 10^3/uL (0.0-1.0); MONOCYTES % (AUTO) 4.1 %; NEUTROPHILS # (AUTO) 5.6 10^3/uL (1.5-6.6); NEUTROPHILS % (AUTO) 86.1 %; PLT - PLATELET COUNT 220 10^3/uL (130-450); RED BLOOD COUNT 3.48 10^6/uL (4.20-5.40); WHITE BLOOD COUNT 6.5 x10^3/uL (4.8-10.8)
[2022-12-08 04:49] LABS: CALCIUM 8.8 mg/dL (8.5-10.3); CREATININE 0.9 mg/dL (0.4-1.0)
[2022-12-08] MEDS: SODIUM CHLORIDE FLUSH 0.9% 10 ML SYRINGE IVP SCH ×3 (05:10→17:28)
[2022-12-08] MEDS: SODIUM CHLORIDE 0.9% 1,000 ML IV SCH (05:11)
[2022-12-08] MEDS: POTASSIUM CHLOR 20 MEQ/100 ML 20 MEQ/100 ML BAG IV SCH ×2 (05:47→06:50)
[2022-12-08] MEDS: MORPHINE 2 MG/ML CARPUJECT IVP PRN ×5 (08:34→17:15)
[2022-12-08] MEDS: ethyl alcohoL 62% SWAB AMPULE NAS SCH ×2 (08:41→22:14)
[2022-12-08] MEDS: ENOXAPARIN 40 MG/0.4 ML SYRINGE SUBQ SCH (08:48)
[2022-12-08] MEDS ORDERED: FUROSEMIDE 40 MG/4 ML VIAL IVP STA (08:52)
[2022-12-08] MEDS ORDERED: SODIUM CHLORIDE 0.9% 1,000 ML IV SCH (08:53)
[2022-12-08 09:56] LABS: CALCIUM, IONIZED 1.17 mmol/L (1.15-1.33); VBG PH 7.415 (7.31-7.41)
[2022-12-08 10:01] LABS: PHOSPHORUS 2.7 mg/dL (2.5-4.6); POTASSIUM 3.8 mmol/L (3.5-5.0)
[2022-12-08] MEDS: PROPOFOL 1000 MG/100 ML 1,000 MG/100 ML BOTTLE IV SCH ×2 (10:47→22:17)
[2022-12-08] MEDS: PANTOPRAZOLE 40 MG VIAL IVP SCH (13:11)
[2022-12-08] MEDS: D5NS W/20 MEQ KCL 1,000 ML IV SCH (13:20)
--- NOTE | 2022-12-08 14:19 | PHARMACY PROGRESS NOTE ---
- Best Possible Medication History Admit Date and Time: 12/07/22 1749 Processed by: Nursing As the person ultimately responsible for medication therapy, providers are able to order a medication from an existing home medication list in [facility] via the "Reconcile Routine" prior to Confirmation of that medication by patient support partner. Such practice is discouraged except when the physician, in their clinical judgment, deems that a medical need exists for a medication without regard to previous use.
--- NOTE | 2022-12-08 16:55 | PROVIDER PROGRESS NOTE ---
Progress Note December 08, 2022 4:50 PM When I saw the patient at 745 this morning, eyes were open. She is not consistently tracking but responded to my voice and the nurses voice. She is following simple commands such as turning her head to the right and left. Nodding her head up and down. Closing her hand on a finger when asked to. And moving her feet when asked to. She is still on a ventilator, assist-control, tidal volume 400, FiO2 40% with decent self generated volumes, no respiratory distress. But she still quite sedated. Overnight she did not have any morphine or propofol. She also did not require norepinephrine when she was transferred to the ICU. She was able to come off of that almost immediately. When she was more awake, I went ahead and started propofol. She is not quite ready to follow commands for me to think she is safe from a respiratory perspective. is really convinced that this was a suicide attempt. He was the one that actually drove her to see "a friend" and when she came back in the car had the substances. She was also making comments about the fact that she was a burden to him and she was tired of hearing people say that "she was out for his money". Active Medications Alcohol (Ethyl Alcohol 62% Swab Ampule) 1 amp STEFANI BID [facility] Last Admin: 12/08/22 08:41 Dose: 1 amp Enoxaparin Sodium (Enoxaparin 40 Mg/0.4 Ml Syringe) 40 mg SUBQ DAILY [facility] Last Admin: 12/08/22 08:48 Dose: 40 mg Propofol (Diprivan) 1,000 mg in 100 mls @ 3.42 mls/hr IV .[id number] [facility]; Protocol Last Titration: 12/08/22 15:11 Dose: 15 mcg/kg/min, 5.13 mls/hr Potassium Chloride/Dextrose/Sod Cl (D5ns W/20 Meq Kcl) 1,000 mls @ 83.333 mls/hr IV .Q12H [facility] Last Admin: 12/08/22 13:20 Dose: 83.333 mls/hr Morphine Sulfate (Morphine 2 Mg/Ml Carpuject) 2 mg IVP Q2HR PRN PRN Reason: Pain 8 to 10 Last Admin: 12/08/22 15:25 Dose: 2 mg Ondansetron HCl (Ondansetron Odt 4 Mg Tablet) 4 mg TL Q6HR PRN PRN Reason: Nausea / Vomiting Ondansetron HCl (Ondansetron 4 Mg/2 Ml Vial) 4 mg IVP Q6HR PRN PRN Reason: Nausea / Vomiting Pantoprazole Sodium (Pantoprazole 40 Mg Vial) 40 mg IVP QDAC [facility] Last Admin: 12/08/22 13:11 Dose: 40 mg Polyethylene Glycol (Polyethylene Glycol 3350 17 Gm Packet) 17 gm PO DAILY [facility] Sodium Chloride (Sodium Chloride Flush 0.9% 10 Ml Syringe) 10 ml IVP 0100,09 00,1700 [facility] Last Admin: 12/08/22 10:46 Dose: 10 ml Sodium Chloride (Sodium Chloride Flush 0.9% 10 Ml Syringe) 10 ml IVP PRN PRN PRN Reason: NEEDED PER PROVIDER ORDERS Home Meds: Buprenorphine HCl/Naloxone HCl [Suboxone 8-2 mg Tab] 2.5 tab SL DAILY 07/17/22 Atenolol [Tenormin] 50 mg PO QPM 09/18/22 Lisinopril [Zestril] 40 mg PO DAILY 09/18/22 PARoxetine HCL [Paxil] 60 mg PO DAILY 09/18/22 Thiamine [Vitamin B-1] 1 tab PO DAILY 09/18/22 cloNIDine [Catapres] 0.2 mg PO BID 09/18/22 hydroCHLOROthiazide [Hydrodiuril] 1 tab PO DAILY 09/18/22 Exam: Temperature is 37.1. Heart rate 85. Blood pressure 140/89. Patient is a thin white female, intubated, now on propofol. Supple neck Course upper airway tubular breath sounds but no tachypnea. Respiratory rate is staying stable. Regular rate and rhythm Abdomen is soft, normal bowel sounds Extremities are edematous. Hands and feet are sausagelike and there edema. Labs: ABG on assist-control, rate of 16, FiO2 40%, tidal volume 400, and a PEEP of 5 shows a pH of 7.48, PCO2 33, PO2 76. White cell count 6.5. Hemoglobin 10.2. Platelets 220 Sodium 141, potassium 3.0. She was then supplemented 40 mEq and potassium is now 3.8. BUN 12, creatinine 0.9. Calcium 8.8. Phosphorus 2.7. BNP 220 Blood cultures from December 07 are without growth after 1 day (1) Respiratory arrest before cardiac arrest Conclusion/Plan: She came very close to having a respiratory arrest in June. We were able to mitigate that with the Narcan drip. Other causes of her respiratory arrest could have been V. tach from prolonged QT. But she was on telemetry in the emergency room and they noticed a sinus bradycardia before her arrest. Not V. tach. She continues to have a prolonged QT on this morning's EKG With the 's input, he feels that this may have been a deliberate attempt at harming herself. As such her respiratory arrest could have come from just her Suboxone alone much less the methamphetamines that she took. She has already started to regain conscious this morning. But I did not think she was safe enough to extubate since she is not consistently able to follow commands. She may be ready to be extubated tomorrow. As such for sedation purposes she will be started on propofol today and overnight. Yesterday she was on an FiO2 100%, she is now down to an FiO2 of 40%. Plan: Stop propofol tomorrow running around 6 AM. We will work with respiratory about extubating her if she is awake enough and alert enough to follow commands. Narcan drip to continue I will continue to decrease her oxygen delivery and aim for an O2 sat of 92 to 94%. Continue current tidal volume and rate. Reassess respiratory drive, alertness on exam tomorrow and repeat blood gas tomorrow. (2) Hypotension resolved. Conclusion/Plan: I think her hypotension is multifactorial. She had a cardiac arrest, she may have infection, and she is most likely dehydrated with poor p.o. intake due to her substance abuse. Troponin is normal. Even after the code. I had not put her on empiric antibiotics in case this was from pneumonia, but ended up not starting antibiotics and her white cell count is remained stable, and there is been no fever. Plan: IV fluids of normal saline at 100 cc an hour Take the Levophed off the MAR Qualifiers: Hypotension type: unspecified hypotension type Qualified Code(s): I95.9 - Hypotension, unspecified (3) Polysubstance abuse Conclusion/Plan: Suboxone prescription, opioid (unknown of heroin or prescription drug), methamphetamines, alcohol. Plan: When she is awake and extubated, monitor for signs and symptoms of withdrawal Banana bag not needed at this time. Alcohol has not been part of her life for the last few weeks according to her He is interested in making sure that she is evaluated for suicide attempt. This week and we do not have social work. So I will ask for telepsych eval when the patient is more awake and cooperative. If she is deemed unsafe to be discharged, I will then have to ask for [facility] Keshawn [place] (4) Hypertension Conclusion/Plan: At home she is on Catapres 0.2 mg p.o. twice daily, Zestril 40 mg p.o. daily, hydrochlorothiazide 25 mg tablet daily, and Tenormin 50 mg p.o. every afternoon. She is not on home meds right now and BP is acceptable. Hopefully she can be more awake tomorrow that I can extubate her and she can resume her home meds. Hydralazine 10 mg IVP tid prn systolic >175 or diastolic >100 for now. Qualifiers: Hypertension type: primary hypertension Qualified Code(s): I10 - Essential (primary) hypertension (5) Hallucination Conclusion/Plan: With paranoid ideation. She is seen by mental health provider. I will let them know that she is here. I do not know if her paranoid ideation and hallucinations are due to her substance abuse. Or does she have an endogenous disorder.Her states that she does use the phrase schizophrenia or schizoaffective disorder occasionally. He really does not know what her final diagnosis is but she does not really take medicines for schizophrenia that he knows of. Plan: During her stay she may require Abilify or antipsychotics due to her mental illness and not for restraint. I will discussed with her mental health provider once I can identify who they are. (6) Edema lasix 40 mg IVP x 1 dose.
[2022-12-08] MEDS: AMPICILLIN/SULBACTAM 1.5 GM in SODIUM CHLORIDE 0.9% MINIBAG 100 ML IV SCH ×2 (17:58→23:44)
[2022-12-08] MEDS: fentaNYL 100 MCG/2 ML VIAL IVP PRN (19:49)
[2022-12-08] MEDS: hydrALAZINE INJ 20 MG/ML VIAL IVP PRN (20:08)
[2022-12-08] MEDS ORDERED: POTASSIUM CHLOR 20 MEQ/100 ML 20 MEQ/100 ML BAG IV ONE ×2 (20:16)
[2022-12-09] MEDS: fentaNYL 100 MCG/2 ML VIAL IVP PRN ×2 (00:14→04:26)
[2022-12-09] MEDS: D5NS W/20 MEQ KCL 1,000 ML IV SCH ×2 (02:38→16:49)
[2022-12-09] MEDS: SODIUM CHLORIDE FLUSH 0.9% 10 ML SYRINGE IVP SCH ×3 (02:39→18:00)
[2022-12-09] MEDS: hydrALAZINE INJ 20 MG/ML VIAL IVP PRN ×2 (03:07→09:43)
[2022-12-09 04:52] LABS: BASOPHILS % (AUTO) 0.1 %; EOSINOPHILS % (AUTO) 0.1 %; HCT - HEMATOCRIT 30.4 % (37.0-47.0); HGB - HEMOGLOBIN 9.4 g/dL (12.0-16.0); LYMPHOCYTES # (AUTO) 0.7 10^3/uL (1.5-3.5); LYMPHOCYTES % (AUTO) 8.9 %; MEAN CORPUSCULAR HGB CONC 30.9 g/dL (32.0-36.0); MEAN CORPUSCULAR VOLUME 93.8 fL (81.0-99.0); MONOCYTES # (AUTO) 0.6 10^3/uL (0.0-1.0); MONOCYTES % (AUTO) 7.4 %; NEUTROPHILS # (AUTO) 6.5 10^3/uL (1.5-6.6); NEUTROPHILS % (AUTO) 83.2 %; PLT - PLATELET COUNT 172 10^3/uL (130-450); RED BLOOD COUNT 3.24 10^6/uL (4.20-5.40); RED CELL DISTRIBUTION WIDTH 12.9 % (12.0-15.0); WHITE BLOOD COUNT 7.9 x10^3/uL (4.8-10.8)
[2022-12-09 05:00] LABS: CALCIUM 8.6 mg/dL (8.5-10.3); CREATININE 0.9 mg/dL (0.4-1.0); POTASSIUM 3.3 mmol/L (3.5-5.0)
[2022-12-09 05:17] LABS: CALCIUM, IONIZED 1.2 mmol/L (1.15-1.33); VBG PH 7.443 (7.31-7.41)
[2022-12-09] MEDS: AMPICILLIN/SULBACTAM 1.5 GM in SODIUM CHLORIDE 0.9% MINIBAG 100 ML IV SCH ×3 (05:55→18:25)
[2022-12-09] MEDS: PANTOPRAZOLE 40 MG VIAL IVP SCH (05:59)
[2022-12-09] MEDS: MORPHINE 2 MG/ML CARPUJECT IVP PRN ×5 (08:06→21:25)
[2022-12-09] MEDS: POTASSIUM CHLOR 20 MEQ/100 ML 20 MEQ/100 ML BAG IV SCH ×2 (08:22→08:24)
[2022-12-09] MEDS: ENOXAPARIN 40 MG/0.4 ML SYRINGE SUBQ SCH (08:33)
[2022-12-09] MEDS: ethyl alcohoL 62% SWAB AMPULE NAS SCH ×2 (08:38→21:08)
[2022-12-09] MEDS: ONDANSETRON 4 MG/2 ML VIAL IVP PRN (08:51)
--- NOTE | 2022-12-09 10:52 | PROVIDER PROGRESS NOTE ---
Subjective - Prog Note Date Prog Note Date: 12/09/22 Prog Note Time: 10:34 - Subjective Subjective: yesterday am she woke up and was able to answer yes/no and follow a few commands but very shakey and anxious. I started propofol and kept her intubated ov rock. This am, I stopped propofol at 6 am, and by 7 am awake, alert, following all commands, no tachypnea. still with tiny tonic jerky movement as she reaches for water to sip, moving her hands in general or when moving her feet but appropriate and nods head yes/no. is at the bedside holding her hand and she responds to him as well. Extubated and doing well. Respiratory rate is 18, 02 sats are in high 90s. No tachypnea or use of acessory muscles. the first thing she asked for was water to drink and she said she was hungry. Current Medications - Current Medications Current Medications: Active Medications Albuterol/Ipratropium (Ipratropium/Albuterol 3 Ml Neb) 3 ml INH Q4HR PRN PRN Reason: Wheezing Alcohol (Ethyl Alcohol 62% Swab Ampule) 1 amp STEFANI BID [facility] Last Admin: 12/09/22 08:38 Dose: 1 amp Atenolol (Atenolol 25 Mg Tablet) 50 mg PO QPM [facility] Clonazepam (Clonazepam 0.5 Mg Tablet) 0.5 mg PO BID PRN PRN Reason: Anxiety Last Admin: 12/09/22 11:44 Dose: 0.5 mg Clonidine HCl (Clonidine 0.1 Mg Tablet) 0.2 mg PO BID [facility] Enoxaparin Sodium (Enoxaparin 40 Mg/0.4 Ml Syringe) 40 mg SUBQ DAILY [facility] Last Admin: 12/09/22 08:33 Dose: 40 mg Fentanyl (Fentanyl 100 Mcg/2 Ml Vial) 25 mcg IVP Q2HR PRN PRN Reason: Severe Pain (Level 7-10) Last Admin: 12/09/22 04:26 Dose: 25 mcg Hydralazine HCl (Hydralazine Inj 20 Mg/Ml Vial) 10 mg IVP TID PRN PRN Reason: Hypertensive Emergency Last Admin: 12/09/22 09:43 Dose: 10 mg Hydrochlorothiazide (Hydrochlorothiazide 25 Mg Tablet) 25 mg PO DAILY [facility] Propofol (Diprivan) 1,000 mg in 100 mls @ 3.42 mls/hr IV .[id number] [facility]; Protocol Last Titration: 12/09/22 06:13 Dose: Infused Potassium Chloride/Dextrose/Sod Cl (D5ns W/20 Meq Kcl) 1,000 mls @ 83.333 mls/hr IV .Q12H [facility] Last Admin: 12/09/22 02:38 Dose: 83.333 mls/hr Ampicillin Sodium/Sulbactam (Sodium 1.5 gm/ Sodium Chloride) 100 mls @ 200 mls/hr IV Q6HR [facility] Last Admin: 12/09/22 05:55 Dose: 200 mls/hr Lisinopril (Lisinopril 20 Mg Tablet) 40 mg PO DAILY [facility] Morphine Sulfate (Morphine 2 Mg/Ml Carpuject) 2 mg IVP Q2HR PRN PRN Reason: Pain 8 to 10 Last Admin: 12/09/22 11:40 Dose: 2 mg Ondansetron HCl (Ondansetron Odt 4 Mg Tablet) 4 mg TL Q6HR PRN PRN Reason: Nausea / Vomiting Ondansetron HCl (Ondansetron 4 Mg/2 Ml Vial) 4 mg IVP Q6HR PRN PRN Reason: Nausea / Vomiting Last Admin: 12/09/22 08:51 Dose: 4 mg Pantoprazole Sodium (Pantoprazole 40 Mg Vial) 40 mg IVP QDAC [facility] Last Admin: 12/09/22 05:59 Dose: 40 mg Paroxetine HCl (Paroxetine 10 Mg Tablet) 60 mg PO DAILY [facility] Polyethylene Glycol (Polyethylene Glycol 3350 17 Gm Packet) 17 gm PO DAILY [facility] Multivit/Folic Acid/Iron ( Vitamin Tablet) 1 tab PO DAILYWM [facility] Sodium Chloride (Sodium Chloride Flush 0.9% 10 Ml Syringe) 10 ml IVP 0100,0900,1700 [facility] Last Admin: 12/09/22 08:25 Dose: 10 ml Sodium Chloride (Sodium Chloride Flush 0.9% 10 Ml Syringe) 10 ml IVP PRN PRN PRN Reason: NEEDED PER PROVIDER ORDERS Thiamine HCl (Thiamine 100 Mg Tablet) 100 mg PO DAILY [facility] Home Meds: Buprenorphine HCl/Naloxone HCl [Suboxone 8-2 mg Tab] 2.5 tab SL DAILY 07/17/22 Atenolol [Tenormin] 50 mg PO QPM 09/18/22 Lisinopril [Zestril] 40 mg PO DAILY 09/18/22 PARoxetine HCL [Paxil] 60 mg PO DAILY 09/18/22 Thiamine [Vitamin B-1] 1 tab PO DAILY 09/18/22 cloNIDine [Catapres] 0.2 mg PO BID 09/18/22 hydroCHLOROthiazide [Hydrodiuril] 1 tab PO DAILY 09/18/22 Objective - Vital Signs/Intake & Output Reviewed Vital Signs: Yes Vital Signs: Vital Signs x48h Temp Pulse Pulse Resp BP BP Pulse Ox 12/09/22 10:16 108 H 134/87 H 12/09/22 10:00 108 H 14 147/86 H 99 12/09/22 09:00 110 H 17 156/103 H 96 12/09/22 08:00 37.9 C 111 H 17 148/97 H 95 12/09/22 07:04 90 12/09/22 07:00 105 H 18 150/96 H 93 12/09/22 06:00 103 H 18 135/90 H 97 12/09/22 05:45 98 12/09/22 05:00 101 H 16 130/79 99 12/09/22 04:00 100 14 129/76 129/76 95 12/09/22 03:35 93 12/09/22 03:07 161/106 H 12/09/22 03:00 97 13 161/106 H 96 O2 Flow Rate 12/09/22 10:16 12/09/22 10:00 4 12/09/22 09:00 4 12/09/22 08:00 4 12/09/22 07:04 12/09/22 07:00 12/09/22 06:00 12/09/22 05:45 12/09/22 05:00 12/09/22 04:00 12/09/22 03:35 12/09/22 03:07 12/09/22 03:00 Intake & Output: Intake & Output 12/06/22 12/07/22 12/08/22 12/09/22 23:59 23:59 23:59 23:59 Intake Total 3540.969 2220.443 758.891 Output Total 2161 986 822 Balance 1224.803 9743.443 -63.109 - Objective General Appearance: positive: Other (tanned, slender disheveled white female looks stated age. Slightly delayed processing of information and sentences but is answering appropriately) Eyes Bilateral: positive: PERRL, EOMI ENT: positive: Dry mucous membranes Neck: positive: No JVD. negative: Stiff neck Respiratory: positive: No respiratory distress, Rhonchi. negative: Wheezes, Rales Cardiovascular: positive: Regular rate & rhythm, Tachycardia, Systolic murmur Abdomen: positive: Non-tender, No organomegaly, Nml bowel sounds, No distention Skin: positive: Warm, Dry Extremities: positive: Full ROM, Pedal edema Neurologic/Psychiatric: positive: Oriented x3 (But not to time. She understands that she is in the hospital but does not understand how this happened), CN's nml (2-12), Motor nml (Slight tremulousness). negative: Mood/affect nml (Anxious, a little agitated as the morning went on) - Lab Results Fish Bones: 12/09/22 04:20 12/09/22 04:20 Other Labs: Lab Results x24hrs 12/09/22 12/09/22 12/09/22 Range/Units 05:05 04:20 04:20 WBC (4.8-10.8) x10^3/uL RBC (4.20-5.40) 10^6/uL Hgb (12.0-16.0) g/dL Hct (37.0-47.0) % MCV (81.0-99.0) fL MCH (27.0-31.0) pg MCHC (32.0-36.0) g/dL RDW (12.0-15.0) % Plt Count (130-450) 10^3/uL MPV (7.9-10.8) fL Neut # (Auto) (1.5-6.6) 10^3/uL Lymph # (Auto) (1.5-3.5) 10^3/uL [place] # (Auto) (0.0-1.0) 10^3/uL Eos # (Auto) (0.0-0.7) 10^3/uL Baso # (Auto) (0.0-0.1) 10^3/uL Absolute Nucleated RBC x10^3/uL Nucleated RBC % /100WBC VBG pH 7.443 H (7.31-7.41) Ionized Calcium 1.20 (1.15-1.33) mmol/L Sodium 143 (135-145) mmol/L Potassium 3.3 L 3.3 L (3.5-5.0) mmol/L Chloride 115 H (101-111) mmol/L Carbon Dioxide 24 (21-32) mmol/L Anion Gap 4.0 L (6-13) BUN 16 (6-20) mg/dL Creatinine 0.9 (0.4-1.0) mg/dL Estimated GFR (MDRD) 67 L (>89) Glucose 139 H (70-100) mg/dL Calcium 8.6 (8.5-10.3) mg/dL 12/09/22 Range/Units 04:20 WBC 7.9 (4.8-10.8) x10^3/uL RBC 3.24 L (4.20-5.40) 10^6/uL Hgb 9.4 L (12.0-16.0) g/dL Hct 30.4 L (37.0-47.0) % MCV 93.8 (81.0-99.0) fL MCH 29.0 (27.0-31.0) pg MCHC 30.9 L (32.0-36.0) g/dL RDW 12.9 (12.0-15.0) % Plt Count 172 (130-450) 10^3/uL MPV 12.0 H (7.9-10.8) fL Neut # (Auto) 6.5 (1.5-6.6) 10^3/uL Lymph # (Auto) 0.7 L (1.5-3.5) 10^3/uL [place] # (Auto) 0.6 (0.0-1.0) 10^3/uL Eos # (Auto) 0.0 (0.0-0.7) 10^3/uL Baso # (Auto) 0.0 (0.0-0.1) 10^3/uL Absolute Nucleated RBC 0.00 x10^3/uL Nucleated RBC % 0.0 /100WBC VBG pH (7.31-7.41) Ionized Calcium (1.15-1.33) mmol/L Sodium (135-145) mmol/L Potassium (3.5-5.0) mmol/L Chloride (101-111) mmol/L Carbon Dioxide (21-32) mmol/L Anion Gap (6-13) BUN (6-20) mg/dL Creatinine (0.4-1.0) mg/dL Estimated GFR (MDRD) (>89) Glucose (70-100) mg/dL Calcium (8.5-10.3) mg/dL ABX Reporting Has patient been on IV antibiotics over the past 48 hours?: Yes Assessment/Plan - Problem List (1) Respiratory arrest before cardiac arrest Impression: She came very close to having a respiratory arrest in June. We were able to mitigate that with the Narcan drip. This time I think we were not as successful. EKG shows evidence of QT interval prolongation. But she does not have a history of methadone use. She is on suboxone. I have now extubated her. She is requiring intermittently between 2 to 4 L nasal cannula. Blood pressure stable. Tachycardic. But I think that the tachycardia is more of a sign of her possibly withdrawing than I do from respiratory distress. Plan: Transfer patient to [facility] status Narcan drip will be stopped Aim for an O2 sat of 92 to 94% with nasal canula oxygen. Add albuterol for help with any wheezing (2) Hypotension resolved. Conclusion/Plan: I think her hypotension is multifactorial. She had a cardiac arrest, she may have infection, and she is most likely dehydrated with poor p.o. intake due to her substance abuse. Troponin is normal. Even after the code. So I do not suspect cardiac event. Hypotension initially required norepinephrine. That was quickly stopped when she was in the ICU. Since then her systolic is gone up to 156 and her diastolic is gone up to 103.I had started her in antibiotics yesterday out of caution. Wanted to make sure that her hypotension was not from incipient pneumonia that I was not seen or recognizing on chest x-ray. She has not had a temperature spike. While she is wheezing there is no increased phlegm. I will resume her home medications of lisinopril, Catapres, and atenolol Qualifiers: Hypotension type: unspecified hypotension type Qualified Code(s): I95.9 - Hypotension, unspecified (3) Polysubstance abuse Conclusion/Plan: Suboxone prescription, opioid (unknown of heroin or prescription drug), methamphetamines, alcohol. Plan: As the morning went on, she was increasingly anxious. While she was on the ventilator she had propofol, and fentanyl. Now no propofol, no fentanyl. I will add Ativan. I do not know if I am supposed to be really adding the Suboxone. is intimated that she may have tried to kill herself with Suboxone and other re creational substances. I will ask for a telepsych evaluation. (4) Hypertension Conclusion/Plan: At home she is on Catapres 0.2 mg p.o. twice daily, Zestril 40 mg p.o. daily, hydrochlorothiazide 25 mg tablet daily, and Tenormin 50 mg p.o. every afternoon. Now that she is extubated, and blood pressure is coming, I have resumed her medications. Qualifiers: Hypertension type: primary hypertension Qualified Code(s): I10 - Essential (primary) hypertension (5) Hallucination Conclusion/Plan: With paranoid ideation. She is seen by mental health provider. I will let them know that she is here. I do not know if her paranoid ideation and hallucinations are due to her substance abuse. Or does she have an endogenous disorder.Her states that she does use the phrase schizophrenia or schizoaffective disorder occasionally. He really does not know what her final diagnosis is but she does not really take medicines for schizophrenia that he knows of. Plan: During her stay she may require Abilify or antipsychotics due to her mental illness and not for restraint. Telepsych evaluation requested. Today is Sunday. If she is still here, I will try and speak to her mental health provider on Sunday.
[2022-12-09] MEDS ORDERED: cloNIDine 0.1 MG TABLET PO SCH (11:00)
[2022-12-09] MEDS ORDERED: lisinopriL 20 MG TABLET PO SCH (11:00)
[2022-12-09] MEDS ORDERED: hydroCHLOROthiazide 25 MG TABLET PO SCH (11:00)
[2022-12-09 11:20] LABS: MAGNESIUM 1.8 mg/dL (1.7-2.8)
[2022-12-09] MEDS: clonazePAM 0.5 MG TABLET PO PRN ×2 (11:44→18:17)
[2022-12-09] MEDS: IPRATROPIUM/ALBUTEROL 3 ML NEB INH PRN ×3 (11:50→20:50)
[2022-12-09] MEDS: polyethylene glycoL 3350 17 GM PACKET PO SCH (11:54)
[2022-12-09] MEDS: ACETAMINOPHEN 325 MG TABLET PO PRN ×2 (12:52→18:18)
[2022-12-09] MEDS: cloNIDine 0.1 MG TABLET PO SCH ×2 (12:57→21:06)
[2022-12-09] MEDS: hydroCHLOROthiazide 25 MG TABLET PO SCH (14:45)
[2022-12-09] MEDS: lisinopriL 20 MG TABLET PO SCH (14:45)
[2022-12-09] MEDS: SODIUM CHLORIDE FLUSH 0.9% 10 ML SYRINGE IVP PRN (14:54)
[2022-12-09] MEDS: BUPRENORPHINE/NALOXONE 8-2 MG TAB SL SCH (19:57)
[2022-12-09] MEDS: atenoloL 25 MG TABLET PO SCH (21:06)
[2022-12-10] MEDS: SODIUM CHLORIDE FLUSH 0.9% 10 ML SYRINGE IVP SCH ×3 (00:01→18:43)
[2022-12-10] MEDS: MORPHINE 2 MG/ML CARPUJECT IVP PRN ×2 (00:01→06:09)
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
[2022-12-10] MEDS: IPRATROPIUM/ALBUTEROL 3 ML NEB INH PRN ×3 (00:25→16:50)
[2022-12-10] MEDS: D5NS W/20 MEQ KCL 1,000 ML IV SCH ×2 (05:28→19:58)
[2022-12-10 05:37] LABS: BASOPHILS % (AUTO) 0.2 %; CALCIUM 9.1 mg/dL (8.5-10.3); CREATININE 0.6 mg/dL (0.4-1.0); EOSINOPHILS % (AUTO) 0.2 %; HCT - HEMATOCRIT 31.5 % (37.0-47.0); HGB - HEMOGLOBIN 10.2 g/dL (12.0-16.0); LYMPHOCYTES % (AUTO) 9.2 %; MEAN CORPUSCULAR HEMOGLOBIN 29.3 pg (27.0-31.0); MEAN CORPUSCULAR HGB CONC 32.4 g/dL (32.0-36.0); MEAN CORPUSCULAR VOLUME 90.5 fL (81.0-99.0); MEAN PLATELET VOLUME 12.9 fL (7.9-10.8); MONOCYTES # (AUTO) 0.6 10^3/uL (0.0-1.0); MONOCYTES % (AUTO) 5.6 %; NEUTROPHILS # (AUTO) 8.7 10^3/uL (1.5-6.6); NEUTROPHILS % (AUTO) 84.3 %; PLT - PLATELET COUNT 134 10^3/uL (130-450); POTASSIUM 2.8 mmol/L (3.5-5.0); RED BLOOD COUNT 3.48 10^6/uL (4.20-5.40); RED CELL DISTRIBUTION WIDTH 12.4 % (12.0-15.0); WHITE BLOOD COUNT 10.3 x10^3/uL (4.8-10.8)
[2022-12-10 06:08] LABS: PLATELET ESTIMATE, MANUAL NORMAL (130-450,000) (NORMAL)
[2022-12-10] MEDS: AMPICILLIN/SULBACTAM 1.5 GM in SODIUM CHLORIDE 0.9% MINIBAG 100 ML IV SCH ×6 (06:09→23:45)
[2022-12-10] MEDS: PANTOPRAZOLE 40 MG VIAL IVP SCH (06:10)
[2022-12-10] MEDS: SODIUM CHLORIDE FLUSH 0.9% 10 ML SYRINGE IVP PRN ×2 (06:10→06:54)
[2022-12-10] MEDS: ONDANSETRON 4 MG/2 ML VIAL IVP PRN (06:53)
[2022-12-10] MEDS: ACETAMINOPHEN 325 MG TABLET PO PRN ×3 (06:53→20:21)
[2022-12-10] MEDS: polyethylene glycoL 3350 17 GM PACKET PO SCH (08:44)
[2022-12-10] MEDS: ENOXAPARIN 40 MG/0.4 ML SYRINGE SUBQ SCH (08:45)
[2022-12-10] MEDS: THIAMINE 100 MG TABLET PO SCH (08:45)
[2022-12-10] MEDS: PRENATAL VITAMIN TABLET PO SCH (08:45)
[2022-12-10] MEDS: ethyl alcohoL 62% SWAB AMPULE NAS SCH ×2 (08:45→20:02)
[2022-12-10] MEDS: hydroCHLOROthiazide 25 MG TABLET PO SCH (08:45)
[2022-12-10] MEDS: PARoxetine 10 MG TABLET PO SCH (08:45)
[2022-12-10] MEDS: lisinopriL 20 MG TABLET PO SCH (08:45)
[2022-12-10] MEDS: cloNIDine 0.1 MG TABLET PO SCH ×2 (08:45→20:01)
[2022-12-10] MEDS: BUPRENORPHINE/NALOXONE 8-2 MG TAB SL SCH (08:45)
--- NOTE | 2022-12-10 14:23 | PROVIDER PROGRESS NOTE ---
Progress Note December 10, 2022 2:16 PM She was seen by telepsych for consultation late last night. They do feel that she would warrant an inpatient stay due to change her to self. Emotional lability. She goes from tearfulness, to anger very quickly. To myself, nursing and telepsych provider she did describe the depression, feelings of hopelessness, and previous suicide attempt as well as this current suicide attempt. Today with [facility] that I called to come and evaluate, she states that she denies all that. She states "I never said any of that". We resume Suboxone because she was started to go through withdrawal yesterday evening. Very agitated, writhing on the bed in sweats and agitation. Since being on Suboxone she is much better. She is asking for Dilaudid today and feels that "having a tube stuck down your throat qualifies you for having Dilaudid". But no specific area of pain. Active Medications Acetaminophen (Acetaminophen 325 Mg Tablet) 650 mg PO Q4HR PRN PRN Reason: Pain or Fever > 38C (100.4F) Last Admin: 12/10/22 11:09 Dose: 650 mg Albuterol/Ipratropium (Ipratropium/Albuterol 3 Ml Neb) 3 ml INH Q4HR PRN PRN Reason: Wheezing Last Admin: 12/10/22 07:13 Dose: 3 ml Alcohol (Ethyl Alcohol 62% Swab Ampule) 1 amp STEFANI BID [facility] Last Admin: 12/10/22 08:45 Dose: 1 amp Atenolol (Atenolol 25 Mg Tablet) 50 mg PO QPM [facility] Last Admin: 12/09/22 21:06 Dose: 50 mg Buprenorphine HCl (Buprenorphine/Naloxone 8-2 Mg Tab) 2.5 tab SL DAILY [facility] Last Admin: 12/10/22 08:45 Dose: 2.5 tab Clonazepam (Clonazepam 0.5 Mg Tablet) 0.5 mg PO BID PRN PRN Reason: Anxiety Last Admin: 12/09/22 18:17 Dose: 0.5 mg Clonidine HCl (Clonidine 0.1 Mg Tablet) 0.2 mg PO BID [facility] Last Admin: 12/10/22 08:45 Dose: 0.2 mg Enoxaparin Sodium (Enoxaparin 40 Mg/0.4 Ml Syringe) 40 mg SUBQ DAILY [facility] Last Admin: 12/10/22 08:45 Dose: 40 mg Hydralazine HCl (Hydralazine Inj 20 Mg/Ml Vial) 10 mg IVP TID PRN PRN Reason: Hypertensive Emergency Last Admin: 12/09/22 09:43 Dose: 10 mg Hydrochlorothiazide (Hydrochlorothiazide 25 Mg Tablet) 25 mg PO DAILY [facility] Last Admin: 12/10/22 08:45 Dose: 25 mg Potassium Chloride/Dextrose/Sod Cl (D5ns W/20 Meq Kcl) 1,000 mls @ 83.333 mls/hr IV .Q12H [facility] Last Admin: 12/10/22 05:28 Dose: 83.333 mls/hr Ampicillin Sodium/Sulbactam (Sodium 1.5 gm/ Sodium Chloride) 100 mls @ 200 mls/hr IV Q6HR [facility] Last Admin: 12/10/22 13:04 Dose: 200 mls/hr Lisinopril (Lisinopril 20 Mg Tablet) 40 mg PO DAILY [facility] Last Admin: 12/10/22 08:45 Dose: 40 mg Ondansetron HCl (Ondansetron Odt 4 Mg Tablet) 4 mg TL Q6HR PRN PRN Reason: Nausea / Vomiting Ondansetron HCl (Ondansetron 4 Mg/2 Ml Vial) 4 mg IVP Q6HR PRN PRN Reason: Nausea / Vomiting Last Admin: 12/10/22 06:53 Dose: 4 mg Pantoprazole Sodium (Pantoprazole 40 Mg Vial) 40 mg IVP QDAC [facility] Last Admin: 12/10/22 06:10 Dose: 40 mg Paroxetine HCl (Paroxetine 10 Mg Tablet) 60 mg PO DAILY [facility] Last Admin: 12/10/22 08:45 Dose: 60 mg Polyethylene Glycol (Polyethylene Glycol 3350 17 Gm Packet) 17 gm PO DAILY [facility] Last Admin: 12/10/22 08:44 Dose: 17 gm Multivit/Folic Acid/Iron ( Vitamin Tablet) 1 tab PO DAILYWM [facility] Last Admin: 12/10/22 08:45 Dose: 1 tab Sodium Chloride (Sodium Chloride Flush 0.9% 10 Ml Syringe) 10 ml IVP 0100,0900,1700 [facility] Last Admin: 12/10/22 08:46 Dose: 10 ml Sodium Chloride (Sodium Chloride Flush 0.9% 10 Ml Syringe) 10 ml IVP PRN PRN PRN Reason: NEEDED PER PROVIDER ORDERS Last Admin: 12/10/22 06:54 Dose: 10 ml Thiamine HCl (Thiamine 100 Mg Tablet) 100 mg PO DAILY [facility] Last Admin: 12/10/22 08:45 Dose: 100 mg Home Meds: Buprenorphine HCl/Naloxone HCl [Suboxone 8-2 mg Tab] 2.5 tab SL DAILY 07/17/22 Atenolol [Tenormin] 50 mg PO QPM 09/18/22 Lisinopril [Zestril] 40 mg PO DAILY 09/18/22 PARoxetine HCL [Paxil] 60 mg PO DAILY 09/18/22 Thiamine [Vitamin B-1] 1 tab PO DAILY 09/18/22 cloNIDine [Catapres] 0.2 mg PO BID 09/18/22 hydroCHLOROthiazide [Hydrodiuril] 1 tab PO DAILY 09/18/22 Exam: Temperature 36.6, heart rate 84, blood pressure 158/99, respirations 18, she is 97% saturated on 3 L. Neck has shotty adenopathy but is supple Lungs have coarse upper airway sounds but are essentially clear. No rhonchi or wheezing. She did have wheezing yesterday for which I gave her albuterol. No increased respiratory effort. Regular rate and rhythm Abdomen is soft, nontender. Eating 25 to 50% of her food. She has early satiety. Normal bowel sounds. Extremities do not have edema today and they are normal in comparison to edema when she was in the ICU on the vent. Urine output was at 1072 cc yesterday, today is been 350 cc. Since midnight. Neurologically she is alert, oriented to person place, not necessarily time. Says that "I just remember the last 3 weeks". Lab: Sodium 139, potassium 2.8, BUN 8, creatinine 0.6. Hemoglobin 10.2. White cell count 10.3. Assessment/Plan - Problem List (1) Respiratory arrest before cardiac arrest Impression: She came very close to having a respiratory arrest in June. We were able to mitigate that with the Narcan drip. This time I think we were not as successful. EKG shows evidence of QT interval prolongation. But she does not have a history of methadone use. She is on suboxone. I have now extubated her. She continues to require between 2 to 4 L nasal cannula. Blood pressure stable. Tachycardic. But I think that the tachycardia is more of a sign of her possibly withdrawing than I do from respiratory distress. Went from ICU to Med surg 12/09. On albuterol prn. Plan: Ask RN to stop oxygen and see what she is on room air. Aim for an O2 sat of 92 to 94% with nasal canula oxygen. (2) Hypotension resolved. Conclusion/Plan: I think her hypotension is multifactorial. She had a cardiac arrest, she may have infection, and she was most likely dehydrated with poor p.o. intake due to her substance abuse. Troponin is normal. Even after the code. So I do not suspect cardiac event. Hypotension initially required norepinephrine. That was quickly stopped when she was in the ICU. Since then her systolic is gone up to 156 and her diastolic is gone up to 103. I had started her in antibiotics 12/08 out of caution. Wanted to make sure that her hypotension was not from incipient pneumonia that I was not seen or recognizing on chest x-ray. She has not had a temperature spike. While she is wheezing there is no increased phlegm. She was hypertensive by 12/09 and I resumed her home medications of lisinopril, Catapres, and atenolol. 158/113 this morning, 158/99 later in the day. Some of her hypertension may be due to the agitation of the day, being evaluated by the D[facility], borderline withdrawal. At this time I am not can to be changing her meds but she on prn hydralazine. Qualifiers: Hypotension type: unspecified hypotension type Qualified Code(s): I95.9 - Hypotension, unspecified (3) Polysubstance abuse Conclusion/Plan: Suboxone prescription, opioid (unknown of heroin or prescription drug), methamphetamines, alcohol. She did start withdrawal yesterday 12/09 and that resolved with my resumption of suboxone. Telepsych evalated her and she endorses doing back to back round the clock meth to hurt herself. She wishes she was . and did overuse her suboxone. Telepsych does recommend transfer to inpatient. Plan: We will see if [facility] can get a bed. (4) Hypertension Conclusion/Plan: At home she is on Catapres 0.2 mg p.o. twice daily, Zestril 40 mg p.o. daily, hydrochlorothiazide 25 mg tablet daily, and Tenormin 50 mg p.o. every afternoon. I have resumed her medications. I have added hydralazine 10 mg IVP tid prn systolic >170 or diastolic >113 Qualifiers: Hypertension type: primary hypertension Qualified Code(s): I10 - Essential (primary) hypertension (5) Hallucination Conclusion/Plan: With paranoid ideation. She is seen by mental health provider in [place] over teleconsult. I do not know if her paranoid ideation and hallucinations are due to her substance abuse. Or does she have an endogenous disorder. Her states that she does use the phrase schizophrenia or schizoaffective disorder occasionally. He really does not know what her final diagnosis is but she does not really take medicines for schizophrenia that he knows of. Plan: During her stay she may require Abilify or antipsychotics due to her mental illness and not for restraint. Telepsych evaluation done today and no recommendation made for that.
[2022-12-10] MEDS: clonazePAM 0.5 MG TABLET PO PRN (18:42)
[2022-12-10] MEDS: atenoloL 25 MG TABLET PO SCH (20:01)
[2022-12-11] MEDS: D5NS W/20 MEQ KCL 1,000 ML IV SCH (04:33)
[2022-12-11] MEDS: SODIUM CHLORIDE FLUSH 0.9% 10 ML SYRINGE IVP SCH ×2 (04:33→08:31)
[2022-12-11 06:38] LABS: BASOPHILS % (AUTO) 0.1 %; EOSINOPHILS # (AUTO) 0.2 10^3/uL (0.0-0.7); EOSINOPHILS % (AUTO) 2.2 %; HCT - HEMATOCRIT 33.6 % (37.0-47.0); HGB - HEMOGLOBIN 10.8 g/dL (12.0-16.0); LYMPHOCYTES # (AUTO) 0.8 10^3/uL (1.5-3.5); LYMPHOCYTES % (AUTO) 11.2 %; MEAN CORPUSCULAR HEMOGLOBIN 28.7 pg (27.0-31.0); MEAN CORPUSCULAR HGB CONC 32.1 g/dL (32.0-36.0); MEAN CORPUSCULAR VOLUME 89.4 fL (81.0-99.0); MEAN PLATELET VOLUME 11.1 fL (7.9-10.8); MONOCYTES # (AUTO) 0.5 10^3/uL (0.0-1.0); MONOCYTES % (AUTO) 6.7 %; NEUTROPHILS # (AUTO) 5.9 10^3/uL (1.5-6.6); NEUTROPHILS % (AUTO) 79.7 %; PLT - PLATELET COUNT 215 10^3/uL (130-450); RED BLOOD COUNT 3.76 10^6/uL (4.20-5.40); RED CELL DISTRIBUTION WIDTH 11.9 % (12.0-15.0); WHITE BLOOD COUNT 7.4 x10^3/uL (4.8-10.8)
[2022-12-11] MEDS: AMPICILLIN/SULBACTAM 1.5 GM in SODIUM CHLORIDE 0.9% MINIBAG 100 ML IV SCH (06:46)
[2022-12-11] MEDS: ACETAMINOPHEN 325 MG TABLET PO PRN (06:46)
[2022-12-11] MEDS: SODIUM CHLORIDE FLUSH 0.9% 10 ML SYRINGE IVP PRN (06:46)
[2022-12-11] MEDS: PANTOPRAZOLE 40 MG VIAL IVP SCH (06:46)
[2022-12-11 06:47] LABS: CALCIUM 9.1 mg/dL (8.5-10.3); CREATININE 0.9 mg/dL (0.4-1.0); POTASSIUM 2.7 mmol/L (3.5-5.0)
[2022-12-11] MEDS ORDERED: POTASSIUM CHLORIDE 20 MEQ TABLET PO ONE (07:30)
[2022-12-11] MEDS: PARoxetine 10 MG TABLET PO SCH (08:24)
[2022-12-11] MEDS: ENOXAPARIN 40 MG/0.4 ML SYRINGE SUBQ SCH (08:26)
[2022-12-11] MEDS: polyethylene glycoL 3350 17 GM PACKET PO SCH (08:27)
[2022-12-11] MEDS: PRENATAL VITAMIN TABLET PO SCH (08:27)
[2022-12-11] MEDS: BUPRENORPHINE/NALOXONE 8-2 MG TAB SL SCH (08:28)
[2022-12-11] MEDS: THIAMINE 100 MG TABLET PO SCH (08:28)
[2022-12-11] MEDS: hydroCHLOROthiazide 25 MG TABLET PO SCH (08:29)
[2022-12-11] MEDS: cloNIDine 0.1 MG TABLET PO SCH (08:29)
[2022-12-11] MEDS: lisinopriL 20 MG TABLET PO SCH (08:29)
[2022-12-11] MEDS: ethyl alcohoL 62% SWAB AMPULE NAS SCH (08:31)
--- NOTE | 2022-12-11 09:29 | Discharge Plan ---
Discharge Plan Problem Reviewed?: Yes Disposition: 02 Transfer Acute Care Hosp Condition: Fair Prescriptions: Amox/Clav 875/125 [Augmentin 875/125 Tab] 1 tablet PO Q12H 10 Days #10 tablet Potassium Chloride 20 meq PO DAILY #30 tab Diet: Regular Activity Restrictions: Activity as Tolerated Shower Restrictions: No Driving Restrictions: No Health Concerns: You took a deliberate drug overdose of your Suboxone and were taking continuous methamphetamine. You were seen in the emergency room because your was worried about how confused you were and how altered in your orientation you were. While you were waiting in the emergency room you had a respiratory arrest and a near cardiac arrest. He required very minimal resuscitation and you responded to basically being intubated and being put on life support with a tube down your throat. You have recovered. But you still have depression, feelings of lack of self-worth, and we think that you are at risk for killing yourself. As such we are transferring you to a another facility for inpatient psychiatric evaluation. You do have a cough after being intubated. I am sending you with antibiotics to complete. Plan of Treatment: Complete antibiotics with Augmentin for bronchitis that resulted from intubation and respiratory arrest Transfer to mental health facility to help with depression and suicidal ideation Hopefully also to do long-term rehab to help with methamphetamine abuse and opioid abuse Care Goals: To return to home with a stable state of mind, and to be able to stay off drugs Assessment: Patient is alert, oriented, tearful, occasionally defensive, but is amenable to transfer No Smoking: If you smoke, Please STOP! Call for help.
[2022-12-11] MEDS ORDERED: POTASSIUM CHLORIDE 20 MEQ TABLET PO SCH (11:30)
[2022-12-11 13:33] VITALS: BP 158/88
--- NOTE | 2022-12-11 18:07 | DISCHARGE SUMMARY ---
Discharge Summary Admit Date: 12/07/22 Discharge Date: 12/11/22 Discharging Provider: Marilynn Renee MD Primary Care Provider: No PCP Code Status: Attempt Resuscitation Condition at Discharge: Fair Discharge Disposition: 02 Transfer Acute Care Hosp Discharge Facility Name: [facility] - DIAGNOSES Discharge Diagnoses with Status of Each Condition: 1. Respiratory arrest before cardiac arrest 2. Suboxone overdose 3. Methamphetamine, continuous use 4. Suicidal ideation 5. Major depressive disorder 6. Hypotension 7. Hypertension 8. Polysubstance abuse 9. Hallucinations 10. Bronchitis - HPI History of Present Illness: This is a patient that we saw in the past in June 2022. She was admitted with the same history of altered mental status in the face of polysubstance abuse. She was on MedSurg, and a few hours later had a near respiratory arrest because of central apnea most likely induced because of self administered Suboxone. We put her in the ICU, gave her a Narcan drip, she gradually recovered without needing to be intubated. She came to the emergency room again for this admission after being found altered by her . She was at home. In the last few weeks she has been increasingly depressed and making statements about her lack of worth, and has been hallucinating. He himself has driven her to "hop picker a check at a friend's house" where he knows that she went to buy methamphetamines. She was in the emergency room awaiting evaluation for her altered mental status. She had already had a CT of the head. She was noted to bradycardia down on telemetry and when she was checked she was severely cyanotic, nearly apneic. A code was called for respiratory arrest followed by cardiac arrest. She responded very quickly to intubation and only required min imal CPR and responded to atropine and epinephrine. A central line was placed, she was transferred to the ICU intubated. - CONSULTS | PROCEDURES Procedures: 1. Chest x-ray on December 06 had pulmonary vascular prominence suggestive of mild edema. Limited to supine technique. Repeat chest x-ray after intubation had moderate infectious or edematous diffuse lung disease. Consider further imaging for surveillance. 2. .Head CT was done on December 06 and had no acute intracranial abnormality. Repeat head CT on December 07 done after CPR and return of spontaneous circulation continues to have no acute intracranial abnormality. 3. Cervical spine CT head no acute fracture or subluxation - HOSPITAL COURSE Hospital Course: Her was at the bedside every day. He informed us that is been a bad few weeks for her. She has a long history of substance abuse since her teenage years. Her father no longer really is in her life because he is not happy with her drug use. Nor are her siblings. He kept on reiterating on a daily basis that he thinks this was a suicide attempt. She was placed on a Narcan drip in the ICU. Within 24 hours she was now awake and required a propofol drip. We then began weaning and stop the Narcan drip, start the propofol drip, and the patient was awake, following commands, and asking for the tube to be removed. ET tube was removed and she was successfully extubated and kept on nasal cannula oxygen. That was eventually stopped as well. She had a cough after extubation. Continued on a daily basis. Her admission chest x-ray after CPR and intubation showed diffuse inflammatory changes and as such I put her on empiric Unasyn. She was occasionally coughing up brownish-yellow phlegm and I will continue her on Augmentin. She shared with her , myself, and nursing that she is not in a good place. She did talk about some hallucinations, and she did talk about her feelings of not being a worthy person. She was evaluated by telemetry psych who felt that she should be involuntarily detained and evaluated by DCR. DCR evaluated her and after discussion with her, the patient was defensive, tearful, and denying that she was ever suicidal. She agreed to being transferred to [facility]. She was initially hypotensive and then hypertensive as she was extubated and more awake. At discharge she was transition from Unasyn and should finish 5 more days of Augmentin at the psychiatric facility. Her Suboxone was also renewed. At discharge the patient was a thin, disheveled white female, looks her stated age. Temperature was 36.6. Heart rate 89. Blood pressure 158/88. Respirations 18. 97% on room air. Neck is shotty adenopathy but is supple. No JVD or bruits. Lungs are clear to auscultation and percussion. She showed me, on her tissue, the brownish thick phlegm and I reassured her that she would get antibiotics. She had a regular rate and rhythm and no murmur. The abdomen was soft, nontender. Extremities were without edema. She is able to sit up in bed, transfer from sitting to standing and walk within her room to go to the bathroom and get back in bed without any tachypnea, ataxia, or distress. Greater than 30 minutes was spent coordinating discharge - ALLERGIES Allergies/Adverse Reactions: Allergies Allergy/AdvReac Type Severity Reaction Status Date / Time No Known Drug Allergies Allergy Verified 09/18/22 02:38 - MEDICATIONS Home Medications: Ambulatory Orders Medication Instructions Recorded Confirmed Adalimumab [Humira Pen] 40 mg SQ ONCE #1 kit 12/27/21 12/07/22 Buprenorphine HCl/Naloxone HCl 2.5 tab SL DAILY 07/17/22 12/07/22 [Suboxone 8-2 mg Tab] Acetaminophen [Tylenol] 500 mg PO Q4HR PRN tab 07/20/22 12/07/22 Pnv No.121/Iron/Folic Acid 1 each PO DAILY #30 tablet 07/20/22 12/07/22 [ Multivitamin Tablet] clonazePAM [KlonoPIN] 0.5 mg PO BID PRN #20 tablet 07/30/22 12/07/22 predniSONE [Deltasone] 60 mg PO DAILY 5 Days #15 tablet 09/05/22 12/07/22 Atenolol [Tenormin] 50 mg PO QPM 09/18/22 12/07/22 Lisinopril [Zestril] 40 mg PO DAILY 09/18/22 12/07/22 PARoxetine HCL [Paxil] 60 mg PO DAILY 09/18/22 12/07/22 Thiamine [Vitamin B-1] 1 tab PO DAILY 09/18/22 12/07/22 cloNIDine [Catapres] 0.2 mg PO BID 09/18/22 12/07/22 hydroCHLOROthiazide [Hydrodiuril] 1 tab PO DAILY 09/18/22 12/07/22 Amox/Clav 875/125 [Augmentin 1 tablet PO Q12H 10 Days #10 tablet 12/11/22 875/125 Tab] Potassium Chloride 20 meq PO DAILY #30 tab 12/11/22 - LABS Result Diagrams: 12/11/22 06:30 12/11/22 06:30
[2022-12-12] MEDS ORDERED: PANTOPRAZOLE 40 MG TABLET PO SCH (07:00)
== END 2022-12-11 13:37 | disposition short-term general hospital (02) | DRG 297 ==
LOC: ED 20:06 → ICU 12-07 17:43 → MS2 12-09 10:32
PROVIDERS: ADMIT Specialist; ATTEND Specialist
PROC: 0BH17EZ Insertion of Endotracheal Airway into Trachea, Via Natural or Artificial Opening (ICD-10-PCS; principal; 2022-12-07)
PROC: 5A1945Z Respiratory Ventilation, 24-96 Consecutive Hours (ICD-10-PCS; 2022-12-07)
DX: I46.9 Cardiac arrest, cause unspecified (principal); F11.13 Opioid abuse with withdrawal; R45.851 Suicidal ideations; G93.40 Encephalopathy, unspecified; R44.3 Hallucinations, unspecified; F32.9 Major depressive disorder, single episode, unspecified; I95.9 Hypotension, unspecified; I10 Essential (primary) hypertension; J45.909 Unspecified asthma, uncomplicated; F41.9 Anxiety disorder, unspecified; L40.9 Psoriasis, unspecified; F15.10 Other stimulant abuse, uncomplicated; F10.10 Alcohol abuse, uncomplicated; T40.492A Poisoning by other synthetic narcotics, intentional self-harm, initial encounter; R59.0 Localized enlarged lymph nodes; R60.0 Localized edema; R79.0 Abnormal level of blood mineral; R94.31 Abnormal electrocardiogram [ECG] [EKG]; Z20.822 Contact with and (suspected) exposure to COVID-19; Z32.02 Encounter for pregnancy test, result negative; Z63.6 Dependent relative needing care at home; Z63.8 Other specified problems related to primary support group; Z79.899 Other long term (current) drug therapy; Z87.898 Personal history of other specified conditions
CPT/HCPCS: 31500; 36415; 36556; 36600; 70450; 71045; 72125; 80048; 80053; 80306; 80307; 80320; 80329; 81003; 81025; 82140; 82330; 82803; 83605; 83690; 83735; 83880; 84100; 84132; 84443; 84484; 85025; 87040; 87150; 87635; 92950; 93005; 94002; 94003; 94640; 96361; 96374; 99291; A9270; J1650; J2060; 81001; 87086; 94770

== ENCOUNTER 2023-03-01 20:33 | Emergency (ER) | payer MEDICAID ==
[2023-03-01 21:03] LABS: MUDS CUTOFF CONCENTRATIONS CUTOFF CONC BELOW:
[2023-03-01 21:06] LABS: BILIRUBIN,URINE NEGATIVE (NEGATIVE); GLUCOSE, URINE (UA) NEGATIVE (NEGATIVE); KETONES,URINE (UA) NEGATIVE (NEGATIVE); LEUKOCYTE ESTERASE, URINE NEGATIVE (NEGATIVE); NITRITE,URINE NEGATIVE (NEGATIVE); OCCULT BLOOD,URINE NEGATIVE (NEGATIVE); PROTEIN,URINE NEGATIVE (NEGATIVE); UROBILINOGEN,URINE 0.2 (NORMAL) E.U./dL (NORMAL)
[2023-03-01 21:09] LABS: CLARITY,URINE CLEAR (CLEAR); HCG UR QUAL NEGATIVE
[2023-03-01 21:28] LABS: AMPHETAMINE SCREEN,URINE POSITIVE (NEGATIVE); BARBITURATE SCREEN,UR NEGATIVE (NEGATIVE); BENZODIAZEPINES SCREEN, URINE NEGATIVE (NEGATIVE); COCAINE SCREEN URINE NEGATIVE (NEGATIVE); METHADONE SCREEN, URINE NEGATIVE (NEGATIVE); METHAMPHETAMINES SCREEN, URINE POSITIVE (NEGATIVE); OPIATE SCREEN, URINE NEGATIVE (NEGATIVE); OXYCODONE SCREEN, URINE NEGATIVE (NEGATIVE); PROPOXYPHENE SCREEN, URINE NEGATIVE (NEGATIVE); THC CANNABINOID SCREEN, URINE NEGATIVE (NEGATIVE); TRICYCLIC ANTIDEPRESSANT,URINE NEGATIVE (NEGATIVE)
[2023-03-01 21:41] LABS: BASOPHILS % (AUTO) 0.1 %; EOSINOPHILS % (AUTO) 0.1 %; HCT - HEMATOCRIT 35.5 % (37.0-47.0); HGB - HEMOGLOBIN 11.2 g/dL (12.0-16.0); LYMPHOCYTES # (AUTO) 1.5 10^3/uL (1.5-3.5); LYMPHOCYTES % (AUTO) 16.1 %; MEAN CORPUSCULAR HEMOGLOBIN 28.6 pg (27.0-31.0); MEAN CORPUSCULAR HGB CONC 31.5 g/dL (32.0-36.0); MEAN CORPUSCULAR VOLUME 90.8 fL (81.0-99.0); MONOCYTES # (AUTO) 0.4 10^3/uL (0.0-1.0); MONOCYTES % (AUTO) 4.3 %; NEUTROPHILS # (AUTO) 7.1 10^3/uL (1.5-6.6); NEUTROPHILS % (AUTO) 79.2 %; PLT - PLATELET COUNT 329 10^3/uL (130-450); RED BLOOD COUNT 3.91 10^6/uL (4.20-5.40); RED CELL DISTRIBUTION WIDTH 13.2 % (12.0-15.0)
--- NOTE | 2023-03-01 21:46 | ED Physician Documentation ---
PD HPI MHE - Stated complaint Stated Complaint: MHE - Chief complaint Chief Complaint: MHE - History obtained from History obtained from: Patient, Family () - Additional information Additional information: 47-year-old woman presents with passive suicidal ideation with attempt last August. Her DCR center and for admission to [place]. Patient reports using methamphetamine 2 days ago. Denies HI or AVH. PD PAST MEDICAL HISTORY - Past Medical History Cardiovascular: Hypertension Respiratory: Asthma Neuro: None Endocrine/Autoimmune: None GI: None EDGE DRUMMER: None : None HEENT: None Psych: Depression, Anxiety Musculoskeletal: None Derm: Psoriasis - Past Surgical History Past Surgical History: Yes /EDGE DRUMMER: Hysterectomy HEENT: Tonsil/Adenoidectomy - Present Medications Home Medications: Ambulatory Orders Medication Instructions Recorded Confirmed Adalimumab [Humira Pen] 40 mg SQ ONCE #1 kit 12/27/21 12/07/22 Buprenorphine HCl/Naloxone HCl 2.5 tab SL DAILY 07/17/22 12/07/22 [Suboxone 8-2 mg Tab] Acetaminophen [Tylenol] 500 mg PO Q4HR PRN tab 07/20/22 12/07/22 Pnv No.121/Iron/Folic Acid 1 each PO DAILY #30 tablet 07/20/22 12/07/22 [ Multivitamin Tablet] clonazePAM [KlonoPIN] 0.5 mg PO BID PRN #20 tablet 07/30/22 12/07/22 predniSONE [Deltasone] 60 mg PO DAILY 5 Days #15 tablet 09/05/22 12/07/22 Atenolol [Tenormin] 50 mg PO QPM 09/18/22 12/07/22 Lisinopril [Zestril] 40 mg PO DAILY 09/18/22 12/07/22 PARoxetine HCL [Paxil] 60 mg PO DAILY 09/18/22 12/07/22 Thiamine [Vitamin B-1] 1 tab PO DAILY 09/18/22 12/07/22 cloNIDine [Catapres] 0.2 mg PO BID 09/18/22 12/07/22 hydroCHLOROthiazide [Hydrodiuril] 1 tab PO DAILY 09/18/22 12/07/22 Amox/Clav 875/125 [Augmentin 1 tablet PO Q12H 10 Days #10 tablet 12/11/22 875/125 Tab] Potassium Chloride 20 meq PO DAILY #30 tab 12/11/22 - Allergies Allergies/Adverse Reactions: Allergies Allergy/AdvReac Type Severity Reaction Status Date / Time No Known Drug Allergies Allergy Verified 09/18/22 02:38 - Social History Does the pt smoke?: No Smoking Status: Never smoker Does the pt drink ETOH?: Yes Does the pt have substance abuse?: No - Immunizations Immunizations are current?: Yes - POLST Patient has POLST: No PD ED PE NORMAL - Vitals Vital signs reviewed: Yes - General General: Alert and oriented X 3, No acute distress, Well developed/nourished - HEENT HEENT: Atraumatic, PERRL, EOMI - Neck Neck: Supple, no meningeal sign - Derm Derm: Normal color, Warm and dry - Extremities Extremities: No deformity - Neuro Neuro: Alert and oriented X 3, No motor deficit, No sensory deficit - Psych Psych: Other (Blunted affect) Results - Vitals Vitals: Vital Signs - 24 hr 03/01/23 20:37 Temperature 36.5 C Heart Rate 73 Respiratory 19 Rate Blood Pressure 156/98 H O2 Saturation 97 Oxygen O2 Source Room air - EKG (time done) 1 EKG releavant findings:: EKG personally interpreted by author of this note. Relevant findings are: Rate: Rate (enter#) (63) Rhythm: NSR [place]: Normal Intervals: Normal [place] QRS: Normal Ischemia: Normal ST segments - Labs Labs: Laboratory Tests 03/01/23 03/01/23 03/01/23 20:53 21:27 21:27 WBC 9.0 RBC 3.91 L Hgb 11.2 L Hct 35.5 L MCV 90.8 MCH 28.6 MCHC 31.5 L RDW 13.2 Plt Count 329 MPV 10.0 Neut # (Auto) 7.1 H Lymph # (Auto) 1.5 [place] # (Auto) 0.4 Eos # (Auto) 0.0 Baso # (Auto) 0.0 Absolute Nucleated RBC 0.00 Nucleated RBC % 0.0 Sodium 140 Potassium 3.9 Chloride 103 Carbon Dioxide 30 Anion Gap 7.0 BUN 21 H Creatinine 0.9 Estimated GFR (MDRD) 67 L Glucose 105 H Calcium 9.1 Magnesium 2.1 Total Bilirubin 0.3 AST 18 ALT 21 Alkaline Phosphatase 53 Total Creatine Kinase 189 Total Protein 6.7 Albumin 3.7 Globulin 3.0 Albumin/Globulin Ratio 1.2 Lipase 43 TSH Urine Color YELLOW Urine Clarity CLEAR Urine pH 6.0 Ur Specific [place] 1.025 Urine Protein NEGATIVE Urine Glucose (UA) NEGATIVE Urine Ketones NEGATIVE Urine Occult Blood NEGATIVE Urine Nitrite NEGATIVE Urine Bilirubin NEGATIVE Urine Urobilinogen 0.2 (NORMAL) Ur Leukocyte Esterase NEGATIVE Ur Microscopic Review NOT INDICATED Urine Culture Comments NOT INDICATED Urine HCG, Qual NEGATIVE Salicylates < 6.0 Urine Opiates Screen NEGATIVE Ur Oxycodone Screen NEGATIVE Urine Methadone Screen NEGATIVE Ur Propoxyphene Screen NEGATIVE Acetaminophen < 10 L Ur Barbiturates Screen NEGATIVE Ur Tricyclics Screen NEGATIVE Ur Phencyclidine Scrn NEGATIVE Ur Amphetamine Screen POSITIVE H U Methamphetamines Scrn POSITIVE H U Benzodiazepines Scrn NEGATIVE Urine Cocaine Screen NEGATIVE U Cannabinoids Screen NEGATIVE Ethyl Alcohol < 5.0 03/01/23 21:27 WBC RBC Hgb Hct MCV MCH MCHC RDW Plt Count MPV Neut # (Auto) Lymph # (Auto) [place] # (Auto) Eos # (Auto) Baso # (Auto) Absolute Nucleated RBC Nucleated RBC % Sodium Potassium Chloride Carbon Dioxide Anion Gap BUN Creatinine Estimated GFR (MDRD) Glucose Calcium Magnesium Total Bilirubin AST ALT Alkaline Phosphatase Total Creatine Kinase Total Protein Albumin Globulin Albumin/Globulin Ratio Lipase TSH 0.57 Urine Color Urine Clarity Urine pH Ur Specific [place] Urine Protein Urine Glucose (UA) Urine Ketones Urine Occult Blood Urine Nitrite Urine Bilirubin Urine Urobilinogen Ur Leukocyte Esterase Ur Microscopic Review Urine Culture Comments Urine HCG, Qual Salicylates Urine Opiates Screen Ur Oxycodone Screen Urine Methadone Screen Ur Propoxyphene Screen Acetaminophen Ur Barbiturates Screen Ur Tricyclics Screen Ur Phencyclidine Scrn Ur Amphetamine Screen U Methamphetamines Scrn U Benzodiazepines Scrn Urine Cocaine Screen U Cannabinoids Screen Ethyl Alcohol PD Medical Decision Making - ED course ED course: 47-year-old woman presents for mental health evaluation, with prior mental health and substance use issues. p/w DCR Sayra who originally got a call from patient's substance use counselor that she has relapsed into active meth use, showed up late to appointments and missed appts, expressed SI this week. patient is considered under involuntary. Bed available at [email or web address]. CBC, abdominal panel, urinalysis, urine , tox labs employed for medical clearance. Labs remarkable for stable anemia at 11.2 as well as tox labs popping up positive for methamphetamine and amphetamines. Patient reported meth use three days ago. Patient is medically cleared at this time. Plan to Transfer to [place] for mental health care. Departure - Departure Disposition: 65 Psych Hosp/Unit DC/Xfer Clinical Impression: Suicidal ideations, Methamphetamine abuse Condition: Stable
[2023-03-01 21:50] LABS: ACETAMINOPHEN < 10 ug/mL (10-30); ALBUMIN 3.7 g/dL (3.2-5.5); ALBUMIN/GLOBULIN RATIO 1.2 (1.0-2.2); ALKALINE PHOSPHATASE 53 IU/L (42-121); ALT ALANINE AMINOTRANSFERASE 21 IU/L (10-60); AST ASPARTATE AMINOTRANSFERASE 18 IU/L (10-42); BILIRUBIN,TOTAL 0.3 mg/dL (0.2-1.0); BUN - BLOOD UREA NITROGEN 21 mg/dL (6-20); CALCIUM 9.1 mg/dL (8.5-10.3); CARBON DIOXIDE - CO2 30 mmol/L (21-32); CHLORIDE 103 mmol/L (101-111); CK- CREATINE KINASE 189 IU/L (22-269); CREATININE 0.9 mg/dL (0.4-1.0); ETOH - ETHANOL < 5.0 mg/dL; GFR - MDRD 67 (>89); GLUCOSE 105 mg/dL (70-100); LIPASE 43 U/L (22-51); MAGNESIUM 2.1 mg/dL (1.7-2.8); POTASSIUM 3.9 mmol/L (3.5-5.0); SALICYLATE < 6.0 mg/dL; SODIUM 140 mmol/L (135-145); TOTAL PROTEIN 6.7 g/dL (6.7-8.2)
[2023-03-02] MEDS ORDERED: amLODIPine 5 MG TABLET PO STA (08:03)
[2023-03-02 08:08] VITALS: BP 172/120
[2023-03-02] MEDS ORDERED: lisinopriL 20 MG TABLET PO STA (08:09)
[2023-03-02] MEDS: hydroCHLOROthiazide 25 MG TABLET PO STA ×2 (08:12→08:14)
== END 2023-03-02 08:32 ==
LOC: ED 20:33
DX: R45.851 Suicidal ideations (principal); F15.10 Other stimulant abuse, uncomplicated; Z20.822 Contact with and (suspected) exposure to COVID-19
CPT/HCPCS: 36415; 80053; 80306; 80307; 80320; 80329; 81003; 81025; 82550; 83690; 83735; 84443; 85025; 87635; 93005; 99284; 99285; A9270; 81001; 87086

== ENCOUNTER 2024-05-05 16:47 | Outpatient (CLI) | payer MEDICAID | END 2024-05-05 23:59 | disposition critical access hospital (66) | LOC: EMS 16:47 | DX: R40.20 Unspecified coma (principal) | CPT/HCPCS: A0425; A0433; A0999 ==

== ENCOUNTER 2024-05-05 17:02 | Emergency (ER) | payer MEDICAID ==
[2024-05-05] MEDS: NOREPINEPHRINE/0.9 % NS 8 MG/250 ML BAG IV SCH (17:10)
[2024-05-05] MEDS: SODIUM CHLORIDE 0.9% 1,000 ML IV STA ×5 (17:10→21:01)
--- NOTE | 2024-05-05 17:51 | XRAY Report ---
PROCEDURE: Chest for Line Placement INDICATIONS: s/p intubation TECHNIQUE: One view of the chest was acquired. COMPARISON: 12/07/2022 FINDINGS: Surgical changes and devices: Endotracheal tube with tip approximately 3 cm above the [place].. Lungs and pleura: No pleural effusions or pneumothorax. Lungs are clear. Mediastinum: Mediastinal contours appear normal. Heart size is normal. Bones and chest wall: No suspicious bony lesions. Overlying soft tissues appear unremarkable. IMPRESSION: No acute cardiopulmonary process. Endotracheal tube with tip approximately 3 cm above the beverly. Reviewed by: Enrique Khan MD on 05/05/2024 5:50 PM PDT Approved by: Enrique Khan MD on 05/05/2024 5:50 PM PDT Station ID: [id number]
[2024-05-05 18:27] LABS: ABG BASE EXCESS 3.5 mmol/L (-2.0-3.0); ABG HCO3 25.5 mmol/L (22.0-26.0); ABG OXYGEN SATURATION 99 % (94-98); ABG PCO2 31 mmHg (34-45); ABG PH 7.54 (7.35-7.45); ABG TCO2 26.5 MMOL/L (21.0-29.0); ALLEN TEST POSITIVE
[2024-05-05 18:28] LABS: ABG MODE OF VENTILATION SIMV; ABG RESPIRATORY RATE 18 b/min
[2024-05-05 18:29] LABS: ABG PO2 205 mmHg (80-100)
[2024-05-05 18:31] LABS: BASOPHILS % (AUTO) 0.3 %; EOSINOPHILS # (AUTO) 0.2 10^3/uL (0.0-0.7); EOSINOPHILS % (AUTO) 1.5 %; HCT - HEMATOCRIT 34.6 % (37.0-47.0); HGB - HEMOGLOBIN 10.9 g/dL (12.0-16.0); LYMPHOCYTES # (AUTO) 1.7 10^3/uL (1.5-3.5); LYMPHOCYTES % (AUTO) 17.8 %; MEAN CORPUSCULAR HEMOGLOBIN 27.5 pg (27.0-31.0); MEAN CORPUSCULAR HGB CONC 31.5 g/dL (32.0-36.0); MEAN CORPUSCULAR VOLUME 87.4 fL (81.0-99.0); MEAN PLATELET VOLUME 10.8 fL (7.9-10.8); MONOCYTES # (AUTO) 0.5 10^3/uL (0.0-1.0); MONOCYTES % (AUTO) 4.6 %; NEUTROPHILS # (AUTO) 7.3 10^3/uL (1.5-6.6); NEUTROPHILS % (AUTO) 75.5 %; PLT - PLATELET COUNT 282 10^3/uL (130-450); RED BLOOD COUNT 3.96 10^6/uL (4.20-5.40); RED CELL DISTRIBUTION WIDTH 12.2 % (12.0-15.0); WHITE BLOOD COUNT 9.7 x10^3/uL (4.8-10.8)
--- NOTE | 2024-05-05 18:31 | ED Physician Documentation ---
History of Present Illness - Stated complaint Stated Complaint: INTUBATED/FOUND DOWN/CPR - Chief complaint Chief Complaint: Neuro - History obtained from History obtained from: EMS - History of Present Illness Timing: Today - Additonal information Additional information: Patient is a 48-year-old female who presents to the emergency department after being found unresponsive at home. EMS states that she had a very low blood pressure, CPR was performed, but she was breathing the entire time. She was intubated by EMS using succinylcholine and etomidate. Patient unable to give any history. EMS states that she was found down about an hour prior to arrival. History of methamphetamine use, last reported use was 1 day ago. No other history available. reportedly came home and found her on the ground. Review of Systems Unable to obtain: Intubated PD PAST MEDICAL HISTORY - Past Medical History Past Medical History: Yes Cardiovascular: Hypertension Respiratory: Asthma Neuro: None Endocrine/Autoimmune: None GI: None METAL NEUTRALIZER: None : None HEENT: None Psych: Depression, Anxiety Musculoskeletal: None Derm: Psoriasis - Past Surgical History Past Surgical History: Yes /METAL NEUTRALIZER: Hysterectomy HEENT: Tonsil/Adenoidectomy - Present Medications Home Medications: Ambulatory Orders Medication Instructions Recorded Confirmed Adalimumab [Humira Pen] 40 mg SQ ONCE #1 kit 12/27/21 12/07/22 Buprenorphine HCl/Naloxone HCl 2.5 tab SL DAILY 07/17/22 12/07/22 [Suboxone 8-2 mg Tab] Acetaminophen [Tylenol] 500 mg PO Q4HR PRN tab 07/20/22 12/07/22 Pnv No.121/Iron/Folic Acid 1 each PO DAILY #30 tablet 07/20/22 12/07/22 [ Multivitamin Tablet] clonazePAM [KlonoPIN] 0.5 mg PO BID PRN #20 tablet 07/30/22 12/07/22 predniSONE [Deltasone] 60 mg PO DAILY 5 Days #15 tablet 09/05/22 12/07/22 Lisinopril [Zestril] 40 mg PO DAILY 09/18/22 12/07/22 PARoxetine HCL [Paxil] 60 mg PO DAILY 09/18/22 12/07/22 Thiamine [Vitamin B-1] 1 tab PO DAILY 09/18/22 12/07/22 atenoloL [Tenormin] 50 mg PO QPM 09/18/22 12/07/22 cloNIDine [Catapres] 0.2 mg PO BID 09/18/22 12/07/22 hydroCHLOROthiazide [Hydrodiuril] 1 tab PO DAILY 09/18/22 12/07/22 Amox/Clav 875/125 [Augmentin 1 tablet PO Q12H 10 Days #10 tablet 12/11/22 875/125 Tab] Potassium Chloride 20 meq PO DAILY #30 tab 12/11/22 - Allergies Allergies/Adverse Reactions: Allergies Allergy/AdvReac Type Severity Reaction Status Date / Time No Known Drug Allergies Allergy Verified 09/18/22 02:38 - Social History Does the pt smoke?: No Smoking Status: Never smoker Does the pt drink ETOH?: Yes Does the pt have substance abuse?: No - Immunizations Immunizations are current?: Yes - POLST Patient has POLST: No PD ED PE NORMAL - Vitals Vital signs reviewed: Yes - General General: Other (intubated unresponsive) - HEENT HEENT: Other (pupils dilated B) - Neck Neck: Other (no step off or deformity) - Cardiac Cardiac: RRR, Strong equal pulses - Respiratory Respiratory: No respiratory distress, Clear bilaterally - Abdomen Abdomen: Soft, Non distended - Back Back: Other (no stepoff or deformity.) - Derm Derm: Warm and dry - Extremities Extremities: Other (no swelling) - Neuro Eye Opening: None Motor: None Verbal: None GCS Score: 3 Results - Vitals Vitals: Vital Signs - 24 hr 05/05/24 05/05/24 05/05/24 17:07 17:12 17:15 Temperature 36.3 C L Heart Rate 81 64 80 Respiratory 18 18 Rate Blood Pressure 74/56 L 107/76 O2 Saturation 98 99 05/05/24 05/05/24 05/05/24 17:30 17:45 18:00 Temperature Heart Rate 78 75 83 Respiratory 18 18 18 Rate Blood Pressure 79/53 L 95/67 120/87 H O2 Saturation 100 100 99 05/05/24 05/05/24 05/05/24 18:15 18:30 18:45 Temperature Heart Rate 83 81 80 Respiratory 18 16 16 Rate Blood Pressure 115/82 H 113/76 113/80 O2 Saturation 99 99 99 05/05/24 05/05/24 05/05/24 19:00 19:15 19:30 Temperature Heart Rate 80 82 79 Respiratory 18 18 16 Rate Blood Pressure 116/82 H 114/78 114/79 O2 Saturation 99 99 99 05/05/24 05/05/24 05/05/24 19:45 20:00 20:15 Temperature 36 C L Heart Rate 80 90 91 Respiratory 16 17 17 Rate Blood Pressure 118/85 H 145/90 H 155/90 H O2 Saturation 100 100 100 05/05/24 05/05/24 05/05/24 20:30 20:45 21:00 Temperature 36.1 C L Heart Rate 82 84 87 Respiratory 18 16 18 Rate Blood Pressure 177/98 H 154/98 H 154/100 H O2 Saturation 100 100 98 05/05/24 05/05/24 05/05/24 21:15 21:30 21:45 Temperature Heart Rate 85 78 71 Respiratory 17 17 16 Rate Blood Pressure 161/110 H 160/105 H 121/88 H O2 Saturation 100 100 100 05/05/24 22:00 Temperature Heart Rate 74 Respiratory 16 Rate Blood Pressure 130/93 H O2 Saturation 100 Oxygen O2 Source Mechanical ventilator - EKG (time done) 1711 EKG releavant findings:: EKG personally interpreted by author of this note. Relevant findings are: Rate: Rate (enter#) (78) Rhythm: NSR [place]: Normal Intervals: Normal [place] QRS: Normal Ischemia: Normal ST segments - Labs Labs: Laboratory Tests 05/05/24 05/05/24 05/05/24 18:18 18:23 18:23 WBC 9.7 RBC 3.96 L Hgb 10.9 L Hct 34.6 L MCV 87.4 MCH 27.5 MCHC 31.5 L RDW 12.2 Plt Count 282 MPV 10.8 Neut # (Auto) 7.3 H Lymph # (Auto) 1.7 [place] # (Auto) 0.5 Eos # (Auto) 0.2 Baso # (Auto) 0.0 Absolute Nucleated RBC 0.00 Nucleated RBC % 0.0 Bld Gas Analysis Time 1826 Sample Site RIGHT RADIAL ABG pH 7.54 H ABG pCO2 31 L ABG pO2 205 H* ABG HCO3 25.5 ABG Total CO2 26.5 ABG O2 Saturation 99 H ABG Base Excess 3.5 H Rangel Test POSITIVE Respiration Rate 18 O2 Delivery Device VENTILATOR Vent Mode SIMV Tidal Volume 450 PEEP 5 Sodium 140 Potassium 3.4 L Chloride 106 Carbon Dioxide 26 Anion Gap 8.0 BUN 15 Creatinine 0.9 Estimated GFR (MDRD) 66 L Glucose 97 Lactic Acid Calcium 9.5 Magnesium 1.7 Total Bilirubin 0.3 AST 16 ALT 13 Alkaline Phosphatase 71 Total Creatine Kinase 48 Troponin I High Sens Total Protein 6.1 L Albumin 3.7 Globulin 2.4 Albumin/Globulin Ratio 1.5 Lipase 50 Vitamin B12 295 Folate 6.5 TSH 5.29 Urine Color Urine Clarity Urine pH Ur Specific [place] Urine Protein Urine Glucose (UA) Urine Ketones Urine Occult Blood Urine Nitrite Urine Bilirubin Urine Urobilinogen Ur Leukocyte Esterase Ur Microscopic Review Urine Culture Comments Urine HCG, Qual Salicylates < 1.5 Urine Opiates Screen Ur Buprenorphine Scrn Ur Oxycodone Screen Urine Methadone Screen Acetaminophen 2.6 Ur Barbiturates Screen Ur Tricyclics Screen Ur Phencyclidine Scrn Ur Amphetamine Screen U Methamphetamines Scrn U Benzodiazepines Scrn Urine Cocaine Screen U Cannabinoids Screen Ur Drug Screen Comment Ethyl Alcohol < 10.0 05/05/24 05/05/24 05/05/24 18:23 18:23 18:39 WBC RBC Hgb Hct MCV MCH MCHC RDW Plt Count MPV Neut # (Auto) Lymph # (Auto) [place] # (Auto) Eos # (Auto) Baso # (Auto) Absolute Nucleated RBC Nucleated RBC % Bld Gas Analysis Time Sample Site ABG pH ABG pCO2 ABG pO2 ABG HCO3 ABG Total CO2 ABG O2 Saturation ABG Base Excess [place] Test Respiration Rate O2 Delivery Device Vent Mode Tidal Volume PEEP Sodium Potassium Chloride Carbon Dioxide Anion Gap BUN Creatinine Estimated GFR (MDRD) Glucose Lactic Acid 1.7 Calcium Magnesium Total Bilirubin AST ALT Alkaline Phosphatase Total Creatine Kinase Troponin I High Sens 6.5 Total Protein Albumin Globulin Albumin/Globulin Ratio Lipase Vitamin B12 Folate TSH Urine Color YELLOW Urine Clarity CLEAR Urine pH 7.0 Ur Specific [place] 1.025 Urine Protein NEGATIVE Urine Glucose (UA) NEGATIVE Urine Ketones NEGATIVE Urine Occult Blood NEGATIVE Urine Nitrite NEGATIVE Urine Bilirubin NEGATIVE Urine Urobilinogen 0.2 (NORMAL) Ur Leukocyte Esterase NEGATIVE Ur Microscopic Review NOT INDICATED Urine Culture Comments NOT INDICATED Urine HCG, Qual NEGATIVE Salicylates Urine Opiates Screen POSITIVE H Ur Buprenorphine Scrn POSITIVE H Ur Oxycodone Screen NEGATIVE Urine Methadone Screen NEGATIVE Acetaminophen Ur Barbiturates Screen NEGATIVE Ur Tricyclics Screen NEGATIVE Ur Phencyclidine Scrn NEGATIVE Ur Amphetamine Screen POSITIVE H U Methamphetamines Scrn POSITIVE H U Benzodiazepines Scrn NEGATIVE Urine Cocaine Screen NEGATIVE U Cannabinoids Screen NEGATIVE Ur Drug Screen Comment CUTOFF CONC BELOW: Ethyl Alcohol - Rads (name of study) cxr Relevant Findings:: Final report received, See rad report head CT Relevant Findings:: Final report received, See rad report c-spine CT Relevant Findings:: Final report received, See rad report Procedures - Central Line - Major Central Line Preparation: Unable to obtain consent, Time out completed, Ultrasound used, Sterile prep and drape Central line location: Right IJ Central line type: Triple lumen Central line aftercare: Chlorhexidine disc placed, Secured, Placement confirmed, No pneumothorax, No complications, Bundle checklist complete, Pt tolerated well PD Medical Decision Making - ED course Complexity details: reviewed old records, reviewed results, re-evaluated patient, considered differential, d/w big machine consultant ED course: 48-year-old female with altered mental status and respiratory failure. Reviewed her prior emergency department and hospitalization records. Appeared a similar episode in November 2022. She was admitted to the ICU. Her symptoms resolved over the next 24 to 36 hours and she was able to be extubated. At that point she stated that she had attempted to use enough methamphetamine to kill herself. There is no report of suicidal ideation by family today. She is still intubated in the emergency department. Minimally responsive, but does open her eyes. She is not fighting the tube. She is maintained on Levophed and propofol. The Levophed was able to be weaned down significantly during her emergency department stay. A right IJ central line was placed immediately upon arrival in the emergency department. No complications. OG tube and Louis were placed as well. There are no ICU beds available here. Therefore [facility] was contacted, awaiting callback at the time of signout. Patient will be signed out to Dr. Tavarez for further care. This document was made in part using voice recognition software. While efforts are made to proofread this document, sound alike and grammatical errors may occur. Departure - Departure Disposition: 02 Transfer Acute Care Hosp Clinical Impression: Polysubstance abuse Altered mental status Qualifiers: Altered mental status type: unspecified Qualified Code(s): R41.82 - Altered mental status, unspecified Respiratory failure Qualifiers: Chronicity: unspecified Respiratory failure complication: unspecified whether with hypoxia or hypercapnia Qualified Code(s): J96.90 - Respiratory failure, unspecified, unspecified whether with hypoxia or hypercapnia Condition: Serious Forms: PCP List
--- NOTE | 2024-05-05 18:38 | XRAY Report ---
PROCEDURE: Chest for Line Placement INDICATIONS: R IJ TECHNIQUE: One view of the chest was acquired. COMPARISON: Same day chest x-ray FINDINGS: Surgical changes and devices: Endotracheal tube with tip approximately 2 cm above the beverly, the ca rusty is not well seen. Orogastric tube with side-port in the distal esophagus, recommend advancement. Right central venous catheter with tip projecting over the cavoatrial junction. Lungs and pleura: No pleural effusions or pneumothorax. Lungs are clear. Mediastinum: Mediastinal contours appear normal. Heart size is normal. Bones and chest wall: No suspicious bony lesions. Overlying soft tissues appear unremarkable. IMPRESSION: Lines and tubes as above. Reviewed by: Enrique Khan MD on 05/05/2024 6:37 PM PDT Approved by: Enrique Khan MD on 05/05/2024 6:37 PM PDT Station ID: [id number]
[2024-05-05 18:53] LABS: ACETAMINOPHEN 2.6 ug/mL; ALBUMIN 3.7 g/dL (3.2-5.5); ALBUMIN/GLOBULIN RATIO 1.5 (1.0-2.2); ALKALINE PHOSPHATASE 71 IU/L (42-121); ALT ALANINE AMINOTRANSFERASE 13 IU/L (10-60); AST ASPARTATE AMINOTRANSFERASE 16 IU/L (10-42); BILIRUBIN,TOTAL 0.3 mg/dL (0.2-1.0); BUN - BLOOD UREA NITROGEN 15 mg/dL (6-20); CALCIUM 9.5 mg/dL (8.5-10.3); CARBON DIOXIDE - CO2 26 mmol/L (21-32); CHLORIDE 106 mmol/L (101-111); CK- CREATINE KINASE 48 IU/L (30-223); CREATININE 0.9 mg/dL (0.6-1.3); ETOH - ETHANOL < 10.0 mg/dL; GFR - MDRD 66 (>89); GLUCOSE 97 mg/dL (74-104); LIPASE 50 U/L (11-82); MAGNESIUM 1.7 mg/dL (1.7-2.3); POTASSIUM 3.4 mmol/L (3.5-4.5); SODIUM 140 mmol/L (135-145); TOTAL PROTEIN 6.1 g/dL (6.4-8.9)
[2024-05-05 18:55] LABS: BILIRUBIN,URINE NEGATIVE (NEGATIVE); GLUCOSE, URINE (UA) NEGATIVE (NEGATIVE); KETONES,URINE (UA) NEGATIVE (NEGATIVE); LEUKOCYTE ESTERASE, URINE NEGATIVE (NEGATIVE); NITRITE,URINE NEGATIVE (NEGATIVE); OCCULT BLOOD,URINE NEGATIVE (NEGATIVE); PROTEIN,URINE NEGATIVE (NEGATIVE); UROBILINOGEN,URINE 0.2 (NORMAL) E.U./dL (NORMAL)
[2024-05-05 19:01] LABS: SALICYLATE < 1.5 mg/dL
[2024-05-05 19:02] LABS: CLARITY,URINE CLEAR (CLEAR); HCG UR QUAL NEGATIVE
[2024-05-05 19:07] LABS: THYROID STIMULATING HORMONE 5.29 uIU/mL (0.34-5.60)
[2024-05-05 19:09] LABS: AMPHETAMINE SCREEN,URINE POSITIVE (NEGATIVE); BARBITURATE SCREEN,UR NEGATIVE (NEGATIVE); BENZODIAZEPINES SCREEN, URINE NEGATIVE (NEGATIVE); BUPRENORPHINE SCREEN, URINE POSITIVE (NEGATIVE); COCAINE SCREEN URINE NEGATIVE (NEGATIVE); METHADONE SCREEN, URINE NEGATIVE (NEGATIVE); METHAMPHETAMINES SCREEN, URINE POSITIVE (NEGATIVE); OPIATE SCREEN, URINE POSITIVE (NEGATIVE); OXYCODONE SCREEN, URINE NEGATIVE (NEGATIVE); THC CANNABINOID SCREEN, URINE NEGATIVE (NEGATIVE); TRICYCLIC ANTIDEPRESSANT,URINE NEGATIVE (NEGATIVE)
--- NOTE | 2024-05-05 21:10 | XRAY Report ---
PROCEDURE: Chest for Line Placement INDICATIONS: ng tube TECHNIQUE: One view of the chest was acquired. COMPARISON: 05/05/2024 FINDINGS: Surgical changes and devices: Gastric tube tip and side-port project over the stomach. Partially vis ualized central line tip projects over the cavoatrial junction. Lungs and pleura: Suboptimally visualized. Mediastinum: Suboptimally visualized. Bones and chest wall: No suspicious bony lesions. Overlying soft tissues appear unremarkable. IMPRESSION: Gastric tube tip and side-port project over the stomach. Reviewed by: Nadeem Potter MD on 05/05/2024 9:09 PM PDT Approved by: Nadeem Potter MD on 05/05/2024 9:09 PM PDT Station ID: [id number]
--- NOTE | 2024-05-05 21:13 | CT Report ---
PROCEDURE: Cervical Spine WO INDICATIONS: aloc, found on ground TECHNIQUE: Noncontrast 3 mm thick sections acquired from the skull base to the T4 level. Sagittal and coronal r eformats were then constructed. For radiation dose reduction, the following was used: automated exp osure control, adjustment of mA and/or kV according to patient size. COMPARISON: 07/16/2022 FINDINGS: Image quality: Excellent. Bones: No fractures or dislocations. Visualized superior ribs are intact. Mild to moderate, multil evel degenerative disease and diffuse facet arthrosis. Soft tissues: Prevertebral soft tissues are normal in thickness. No paravertebral hematomas. No ap ical pneumothoraces. Partially visualized right IJ central venous catheter, which is present within the SVC. Endotracheal tube present within the mid thoracic trachea. Gastric tube within the esophagus . IMPRESSION: No acute, displaced fracture or traumatic subluxation. Reviewed by: Nadeem Potter MD on 05/05/2024 9:12 PM PDT Approved by: Nadeem Potter MD on 05/05/2024 9:12 PM PDT Station ID: [id number]
--- NOTE | 2024-05-05 21:15 | CT Report ---
PROCEDURE: Head WO INDICATIONS: aloc, found on ground TECHNIQUE: Noncontrast 4.5 mm thick angled axial sections acquired from the foramen magnum to the vertex. For r adiation dose reduction, the following was used: automated exposure control, adjustment of mA and/or kV according to patient size. COMPARISON: 12/06/2022. FINDINGS: Image quality: Excellent. CSF spaces: Basal cisterns are patent. No extra-axial fluid collections. Ventricles are normal in size and shape. Brain: No midline shift. No intracranial masses or hemorrhage. [place]-white matter interface is norm al. Skull and face: Calvarium and visualized facial bones are intact, without suspicious lesions. Sinuses: Visualized sinuses and mastoids are clear. IMPRESSION: No acute intracranial pathology. Reviewed by: Nadeem Potter MD on 05/05/2024 9:14 PM PDT Approved by: Nadeem Potter MD on 05/05/2024 9:14 PM PDT Station ID: [id number]
[2024-05-05] MEDS: PROPOFOL 1000 MG/100 ML 1,000 MG/100 ML BOTTLE IV STA (22:13)
[2024-05-05 22:24] VITALS: O2SAT 100
--- NOTE | 2024-05-05 23:17 | ED Physician Documentation ---
ED Addendum - Addendum Addendum: 05/06/24 22:08 I received sign out on this patient from Dr. Bernabe at the end of his shift; please see his note for complete H + P. In brief, patient presented to this emergency department for AMS requiring intubation. After extensive ED testing, etiology of AMS remains unclear. UDS is positive for methamphetamine/amphetamine, opiates, buprenorphine. At time of sign out, no ICU beds available at [facility] and has been contacted. I subsequently discussed this case with the on-call hospitalist for who accepts patient for transfer to .
[2024-05-06] MEDS: MIDAZOLAM 2 MG/2 ML VIAL IVP STA ×2 (00:23→00:26)
[2024-05-06] MEDS: PROPOFOL 1000 MG/100 ML 1,000 MG/100 ML BOTTLE IV SCH (01:13)
[2024-05-06 01:24] VITALS: BP 124/81
== END 2024-05-06 01:17 | disposition short-term general hospital (02) ==
LOC: EDUNIT# → EDBD → ED 17:02
DX: J96.90 Respiratory failure, unspecified, unspecified whether with hypoxia or hypercapnia (principal); R41.82 Altered mental status, unspecified; F19.10 Other psychoactive substance abuse, uncomplicated; I10 Essential (primary) hypertension; J45.909 Unspecified asthma, uncomplicated; Z79.899 Other long term (current) drug therapy
CPT/HCPCS: 36415; 36556; 36600; 51702; 80053; 80143; 80179; 80306; 81001; 81003; 81025; 82077; 82550; 82607; 82746; 82803; 83605; 83690; 83735; 84443; 84484; 85025; 87086; 87635; 93005; 94002; 99285